=== PATIENT | female | born 1960 | race Caucasian/White ===

== ENCOUNTER 2020-12-12 09:45 | Inpatient (IN) | payer MEDICARE, OTHER ==
[2020-12-12] MEDS ORDERED: NALOXONE 0.4 MG/ML 1 ML VIAL IVP STA (09:50)
[2020-12-12] MEDS ORDERED: SODIUM CHLORIDE 0.9% 1,000 ML IV STA (09:50)
[2020-12-12] MEDS ORDERED: HYDROCORTISONE SUCCINATE 100 MG/2 ML VIAL IV STA (09:52)
[2020-12-12 09:56] LABS: Glucose,Whole Blood 101 mg/dL (75-99)
--- NOTE | 2020-12-12 10:07 | ED ---
Altered Mental Status HPI - General Chief Complaint: Altered Mental Status Stated Complaint: altered mental status Time Seen by Provider: 12/12/20 09:45 Source: patient, RN notes reviewed Mode of arrival: EMS Limitations: no limitations - History of Present Illness Initial Comments: This is an approximately late [id number] female with a history of MS who is brought in by EMS with reports of altered mental status when she woke up this morning. Patient apparently lives with a boyfriend who told paramedics that she seemed okay when she went to bed last night it's unknown what time she went to bed but woke up this morning confused with repeated questioning. She has had recent multiple falls it is reported that she saw her neurologist yesterday and his bleeding she is having an MS exacerbation. No focal weakness was noted. No known drug or alcohol ingestion. No fevers chills sweats no nausea vomiting or other symptoms reported at this time. Patient herself is a poor historian she answers yes and no questions she does not seem to know her last name or her birthdate at this time. MD Complaint: altered mental status, confusion - Related Data Home Medications Medication Instructions Recorded Confirmed Aspirin EC [Ecotrin Low Dose] 81 mg PO DAILY 12/12/20 12/12/20 Atorvastatin [Lipitor] 40 mg PO DAILY 12/12/20 12/12/20 Baclofen [Lioresal] 20 mg PO TID 12/12/20 12/12/20 Cholecalciferol [Vitamin D3 (25 50 mcg PO DAILY 12/12/20 12/12/20 Mcg = 1000 Iu)] DULoxetine HCL [Cymbalta] 30 mg PO BID 12/12/20 12/12/20 Dalfampridine [Dalfampridine ER] 10 mg PO Q12H 12/12/20 12/12/20 Ferrous Sulfate [Feosol] 325 mg PO DAILY 12/12/20 12/12/20 Fluticasone/Vilanterol [Breo 1 puff INHALATION RT-BID 12/12/20 12/12/20 Ellipta 100-25 Mcg Inhaler] Gabapentin 600 mg PO TID 12/12/20 12/12/20 HYDROcodone/APAP 10-325MG [[place] 1 tab PO BID 12/12/20 12/12/20 10-325] Metoprolol Tartrate [Lopressor] 25 mg PO BID 12/12/20 12/12/20 Omeprazole 20 mg PO DAILY 12/12/20 12/12/20 QUEtiapine FUMARATE [SEROquel] 25 mg PO HS 12/12/20 12/12/20 Teriflunomide [Aubagio] 14 mg PO DAILY 12/12/20 12/12/20 Ticagrelor [Brilinta] 90 mg PO BID 12/12/20 12/12/20 Allergies Allergy/AdvReac Type Severity Reaction Status Date / Time latex Allergy Unknown Verified 12/12/20 11:22 Review of Systems ROS Statement: Those systems with pertinent positive or pertinent negative responses have been documented in the HPI. ROS Other: All systems not noted in ROS Statement are negative. Limitations: ROS unobtainable due to patients medical condition Past Medical History Past Medical History: Unable to Obtain Past Surgical History: Unable to Obtain General Exam - General Exam Comments Initial Comments: This is a well-developed asthenic appearing female who is awake and alert though confused Limitations: no limitations General appearance: alert, anxious Head exam: Present: normocephalic, other (Bruising seen in the face for head and especially the right lower chin no step-off or crepitation) Eye exam: Present: normal appearance, PERRL, EOMI. Absent: scleral icterus, conjunctival injection, periorbital swelling ENT exam: Present: mucous membranes dry Neck exam: Present: normal inspection, full ROM (No stridor JVD or bruits), other. Absent: tenderness, meningismus, lymphadenopathy Respiratory exam: Present: normal lung sounds bilaterally. Absent: respiratory distress, wheezes, rales, rhonchi, stridor Cardiovascular Exam: Present: regular rate, normal rhythm, normal heart sounds. Absent: systolic murmur, diastolic murmur, rubs, gallop, clicks GI/Abdominal exam: Present: soft, normal bowel sounds. Absent: distended, tenderness, guarding, rebound, rigid Rectal exam: Present: deferred Extremities exam: Present: full ROM, normal capillary refill, other ((Seen to the lower extremities in various stages of apparent age). Absent: tenderness, pedal edema, joint swelling, calf tenderness Back exam: Present: normal inspection Neurological exam: Present: alert, altered, CN II-XII intact. Absent: motor sensory deficit Psychiatric exam: Present: anxious Skin exam: Present: warm, dry, intact. Absent: rash Course Vital Signs 12/12/20 12/12/20 12/12/20 09:56 10:08 11:22 Temperature 99.5 F Pulse Rate 80 84 Respiratory 18 18 18 Rate Blood Pressure 123/93 142/96 O2 Sat by Pulse 98 98 Oximetry 12/12/20 13:41 Temperature Pulse Rate 88 Respiratory 16 Rate Blood Pressure 129/99 O2 Sat by Pulse 98 Oximetry - Reevaluation(s) Reevaluation #1: 12/12/20 14:53 Reevaluation patient reveals some improvement in her mentation however she still is very confused. No change after the medications were given thus far. Medical Decision Making - Lab Data Result diagrams: 12/12/20 10:03 12/12/20 10:03 Lab Results 12/12/20 12/12/20 12/12/20 Range/Units 09:52 10:03 10:03 WBC 10.7 H (3.8-10.6) k/uL RBC 4.23 (3.80-5.40) m/uL Hgb 13.6 (11.4-16.0) gm/dL Hct 40.6 (34.0-46.0) % MCV 95.9 (80.0-100.0) fL MCH 32.2 (25.0-35.0) pg MCHC 33.5 (31.0-37.0) g/dL RDW 13.9 (11.5-15.5) % Plt Count 212 (150-450) k/uL MPV 8.1 Neutrophils % 72 % Lymphocytes % 17 % Monocytes % 8 % Eosinophils % 1 % Basophils % 0 % Neutrophils # 7.7 (1.3-7.7) k/uL Lymphocytes # 1.8 (1.0-4.8) k/uL Monocytes # 0.8 (0-1.0) k/uL Eosinophils # 0.1 (0-0.7) k/uL Basophils # 0.0 (0-0.2) k/uL PT 10.2 (9.0-12.0) sec INR 0.9 (<1.2) APTT 21.6 L (22.0-30.0) sec Sodium (137-145) mmol/L Potassium (3.5-5.1) mmol/L Chloride (98-107) mmol/L Carbon Dioxide (22-30) mmol/L Anion Gap mmol/L BUN (7-17) mg/dL Creatinine (0.52-1.04) mg/dL Est GFR (CKD-EPI)AfAm (>60 ml/min/1.73 sqM) Est GFR (CKD-EPI)NonAf (>60 ml/min/1.73 sqM) Glucose (74-99) mg/dL POC Glucose (mg/dL) 101 H (75-99) mg/dL POC Glu Certified Massage Therapist ID Leticia Zarate Lactic Ac Sepsis Rflx Plasma Lactic Acid Jeremías (0.7-2.0) mmol/L Calcium (8.4-10.2) mg/dL Magnesium (1.6-2.3) mg/dL Total Bilirubin (0.2-1.3) mg/dL AST (14-36) U/L ALT (4-34) U/L Alkaline Phosphatase (38-126) U/L Ammonia (<30) umol/L Creatine Kinase (30-135) U/L Troponin I (0.000-0.034) ng/mL Total Protein (6.3-8.2) g/dL Albumin (3.5-5.0) g/dL Urine Color Urine Appearance (Clear) Urine pH (5.0-8.0) Ur Specific [place] (1.001-1.035) Urine Protein (Negative) Urine Glucose (UA) (Negative) Urine Ketones (Negative) Urine Blood (Negative) Urine Nitrite (Negative) Urine Bilirubin (Negative) Urine Urobilinogen (<2.0) mg/dL Ur Leukocyte Esterase (Negative) Urine RBC (0-5) /hpf Urine WBC (0-5) /hpf Ur Squamous Epith Cells (0-4) /hpf Amorphous Sediment (None) /hpf Urine Bacteria (None) /hpf Hyaline Casts (0-2) /lpf Urine Mucus (None) /hpf Urine Opiates Screen (NotDetected) Ur Oxycodone Screen (NotDetected) Urine Methadone Screen (NotDetected) Ur Propoxyphene Screen (NotDetected) Ur Barbiturates Screen (NotDetected) U Tricyclic Antidepress (NotDetected) Ur Phencyclidine Scrn (NotDetected) Ur Amphetamines Screen (NotDetected) U Methamphetamines Scrn (NotDetected) U Benzodiazepines Scrn (NotDetected) Urine Cocaine Screen (NotDetected) U Marijuana (THC) Screen (NotDetected) Serum Alcohol mg/dL Coronavirus (PCR) (Not Detectd) 12/12/20 12/12/20 12/12/20 Range/Units 10:03 10:03 10:03 WBC (3.8-10.6) k/uL RBC (3.80-5.40) m/uL Hgb (11.4-16.0) gm/dL Hct (34.0-46.0) % MCV (80.0-100.0) fL MCH (25.0-35.0) pg MCHC (31.0-37.0) g/dL RDW (11.5-15.5) % Plt Count (150-450) k/uL MPV Neutrophils % % Lymphocytes % % Monocytes % % Eosinophils % % Basophils % % Neutrophils # (1.3-7.7) k/uL Lymphocytes # (1.0-4.8) k/uL Monocytes # (0-1.0) k/uL Eosinophils # (0-0.7) k/uL Basophils # (0-0.2) k/uL PT (9.0-12.0) sec INR (<1.2) APTT (22.0-30.0) sec Sodium 142 (137-145) mmol/L Potassium 4.9 (3.5-5.1) mmol/L Chloride 109 H (98-107) mmol/L Carbon Dioxide 19 L (22-30) mmol/L Anion Gap 14 mmol/L BUN 52 H (7-17) mg/dL Creatinine 2.86 H (0.52-1.04) mg/dL Est GFR (CKD-EPI)AfAm 13 (>60 ml/min/1.73 sqM) Est GFR (CKD-EPI)NonAf 11 (>60 ml/min/1.73 sqM) Glucose 107 H (74-99) mg/dL POC Glucose (mg/dL) (75-99) mg/dL POC Glu Certified Massage Therapist ID Lactic Ac Sepsis Rflx Plasma Lactic Acid Jeremías 3.6 H* (0.7-2.0) mmol/L Calcium 10.2 (8.4-10.2) mg/dL Magnesium 2.2 (1.6-2.3) mg/dL Total Bilirubin 1.0 (0.2-1.3) mg/dL AST 71 H (14-36) U/L ALT 30 (4-34) U/L Alkaline Phosphatase 128 H (38-126) U/L Ammonia <9 (<30) umol/L Creatine Kinase 750 H (30-135) U/L Troponin I 0.027 (0.000-0.034) ng/mL Total Protein 7.6 (6.3-8.2) g/dL Albumin 4.5 (3.5-5.0) g/dL Urine Color Urine Appearance (Clear) Urine pH (5.0-8.0) Ur Specific [place] (1.001-1.035) Urine Protein (Negative) Urine Glucose (UA) (Negative) Urine Ketones (Negative) Urine Blood (Negative) Urine Nitrite (Negative) Urine Bilirubin (Negative) Urine Urobilinogen (<2.0) mg/dL Ur Leukocyte Esterase (Negative) Urine RBC (0-5) /hpf Urine WBC (0-5) /hpf Ur Squamous Epith Cells (0-4) /hpf Amorphous Sediment (None) /hpf Urine Bacteria (None) /hpf Hyaline Casts (0-2) /lpf Urine Mucus (None) /hpf Urine Opiates Screen (NotDetected) Ur Oxycodone Screen (NotDetected) Urine Methadone Screen (NotDetected) Ur Propoxyphene Screen (NotDetected) Ur Barbiturates Screen (NotDetected) U Tricyclic Antidepress (NotDetected) Ur Phencyclidine Scrn (NotDetected) Ur Amphetamines Screen (NotDetected) U Methamphetamines Scrn (NotDetected) U Benzodiazepines Scrn (NotDetected) Urine Cocaine Screen (NotDetected) U Marijuana (THC) Screen (NotDetected) Serum Alcohol <10 mg/dL Coronavirus (PCR) (Not Detectd) 12/12/20 12/12/20 12/12/20 Range/Units 10:03 11:00 11:22 WBC (3.8-10.6) k/uL RBC (3.80-5.40) m/uL Hgb (11.4-16.0) gm/dL Hct (34.0-46.0) % MCV (80.0-100.0) fL MCH (25.0-35.0) pg MCHC (31.0-37.0) g/dL RDW (11.5-15.5) % Plt Count (150-450) k/uL MPV Neutrophils % % Lymphocytes % % Monocytes % % Eosinophils % % Basophils % % Neutrophils # (1.3-7.7) k/uL Lymphocytes # (1.0-4.8) k/uL Monocytes # (0-1.0) k/uL Eosinophils # (0-0.7) k/uL Basophils # (0-0.2) k/uL PT (9.0-12.0) sec INR (<1.2) APTT (22.0-30.0) sec Sodium (137-145) mmol/L Potassium (3.5-5.1) mmol/L Chloride (98-107) mmol/L Carbon Dioxide (22-30) mmol/L Anion Gap mmol/L BUN (7-17) mg/dL Creatinine (0.52-1.04) mg/dL Est GFR (CKD-EPI)AfAm (>60 ml/min/1.73 sqM) Est GFR (CKD-EPI)NonAf (>60 ml/min/1.73 sqM) Glucose (74-99) mg/dL POC Glucose (mg/dL) (75-99) mg/dL POC Glu Certified Massage Therapist ID Lactic Ac Sepsis Rflx Y Plasma Lactic Acid Jeremías (0.7-2.0) mmol/L Calcium (8.4-10.2) mg/dL Magnesium (1.6-2.3) mg/dL Total Bilirubin (0.2-1.3) mg/dL AST (14-36) U/L ALT (4-34) U/L Alkaline Phosphatase (38-126) U/L Ammonia (<30) umol/L Creatine Kinase (30-135) U/L Troponin I (0.000-0.034) ng/mL Total Protein (6.3-8.2) g/dL Albumin (3.5-5.0) g/dL Urine Color Yellow Urine Appearance Cloudy H (Clear) Urine pH 6.0 (5.0-8.0) Ur Specific [place] 1.024 (1.001-1.035) Urine Protein 1+ H (Negative) Urine Glucose (UA) Negative (Negative) Urine Ketones 1+ H (Negative) Urine Blood Small H (Negative) Urine Nitrite Negative (Negative) Urine Bilirubin Negative (Negative) Urine Urobilinogen 3.0 (<2.0) mg/dL Ur Leukocyte Esterase Trace H (Negative) Urine RBC <1 (0-5) /hpf Urine WBC 3 (0-5) /hpf Ur Squamous Epith Cells 1 (0-4) /hpf Amorphous Sediment Rare H (None) /hpf Urine Bacteria Rare H (None) /hpf Hyaline Casts 2 (0-2) /lpf Urine Mucus Rare H (None) /hpf Urine Opiates Screen Detected H (NotDetected) Ur Oxycodone Screen Not Detected (NotDetected) Urine Methadone Screen Not Detected (NotDetected) Ur Propoxyphene Screen Not Detected (NotDetected) Ur Barbiturates Screen Not Detected (NotDetected) U Tricyclic Antidepress Not Detected (NotDetected) Ur Phencyclidine Scrn Not Detected (NotDetected) Ur Amphetamines Screen Not Detected (NotDetected) U Methamphetamines Scrn Not Detected (NotDetected) U Benzodiazepines Scrn Not Detected (NotDetected) Urine Cocaine Screen Not Detected (NotDetected) U Marijuana (THC) Screen Detected H (NotDetected) Serum Alcohol mg/dL Coronavirus (PCR) Not Detected (Not Detectd) 12/12/20 Range/Units 14:02 WBC (3.8-10.6) k/uL RBC (3.80-5.40) m/uL Hgb (11.4-16.0) gm/dL Hct (34.0-46.0) % MCV (80.0-100.0) fL MCH (25.0-35.0) pg MCHC (31.0-37.0) g/dL RDW (11.5-15.5) % Plt Count (150-450) k/uL MPV Neutrophils % % Lymphocytes % % Monocytes % % Eosinophils % % Basophils % % Neutrophils # (1.3-7.7) k/uL Lymphocytes # (1.0-4.8) k/uL Monocytes # (0-1.0) k/uL Eosinophils # (0-0.7) k/uL Basophils # (0-0.2) k/uL PT (9.0-12.0) sec INR (<1.2) APTT (22.0-30.0) sec Sodium (137-145) mmol/L Potassium (3.5-5.1) mmol/L Chloride (98-107) mmol/L Carbon Dioxide (22-30) mmol/L Anion Gap mmol/L BUN (7-17) mg/dL Creatinine (0.52-1.04) mg/dL Est GFR (CKD-EPI)AfAm (>60 ml/min/1.73 sqM) Est GFR (CKD-EPI)NonAf (>60 ml/min/1.73 sqM) Glucose (74-99) mg/dL POC Glucose (mg/dL) (75-99) mg/dL POC Glu Certified Massage Therapist ID Lactic Ac Sepsis Rflx Plasma Lactic Acid Jeremías 0.8 (0.7-2.0) mmol/L Calcium (8.4-10.2) mg/dL Magnesium (1.6-2.3) mg/dL Total Bilirubin (0.2-1.3) mg/dL AST (14-36) U/L ALT (4-34) U/L Alkaline Phosphatase (38-126) U/L Ammonia (<30) umol/L Creatine Kinase (30-135) U/L Troponin I (0.000-0.034) ng/mL Total Protein (6.3-8.2) g/dL Albumin (3.5-5.0) g/dL Urine Color Urine Appearance (Clear) Urine pH (5.0-8.0) Ur Specific [place] (1.001-1.035) Urine Protein (Negative) Urine Glucose (UA) (Negative) Urine Ketones (Negative) Urine Blood (Negative) Urine Nitrite (Negative) Urine Bilirubin (Negative) Urine Urobilinogen (<2.0) mg/dL Ur Leukocyte Esterase (Negative) Urine RBC (0-5) /hpf Urine WBC (0-5) /hpf Ur Squamous Epith Cells (0-4) /hpf Amorphous Sediment (None) /hpf Urine Bacteria (None) /hpf Hyaline Casts (0-2) /lpf Urine Mucus (None) /hpf Urine Opiates Screen (NotDetected) Ur Oxycodone Screen (NotDetected) Urine Methadone Screen (NotDetected) Ur Propoxyphene Screen (NotDetected) Ur Barbiturates Screen (NotDetected) U Tricyclic Antidepress (NotDetected) Ur Phencyclidine Scrn (NotDetected) Ur Amphetamines Screen (NotDetected) U Methamphetamines Scrn (NotDetected) U Benzodiazepines Scrn (NotDetected) Urine Cocaine Screen (NotDetected) U Marijuana (THC) Screen (NotDetected) Serum Alcohol mg/dL Coronavirus (PCR) (Not Detectd) - EKG Data -: EKG Interpreted by Me EKG shows normal: sinus rhythm (Was sinus rhythm of 70. Interval 128 QRS duration 80 QT since QTC 438/[address]-T wave changes) - Radiology Data Radiology results: report reviewed (Imaging reviewed no acute findings seen.), image reviewed Critical Care Time Critical Care Time: Yes Total Critical Care Time: 42 Critical Care Time: Critical care time includes initial presentation with history physical labs x- rays discussed with paramedics upon arrival for reevaluation patient responsive therapy review charting review of labs and x-rays. Discussed with the main physician admission orders and documentation of the above Disposition Clinical Impression: Acute confusional state, Multiple sclerosis exacerbation, Rhabdomyolysis, Dehydration Disposition: ADMITTED IP TO THIS [facility] Condition: Fair Referrals: None,Stated [REFERRING] - 1-2 days
[2020-12-12 10:13] LABS: Basophils % (A) 0 %; Eosinophils # (A) 0.1 k/uL (0-0.7); Eosinophils % (A) 1 %; HCT 40.6 % (34.0-46.0); HGB 13.6 gm/dL (11.4-16.0); Lymphocytes # (A) 1.8 k/uL (1.0-4.8); Lymphocytes % (A) 17 %; MCH 32.2 pg (25.0-35.0); MCHC 33.5 g/dL (31.0-37.0); MCV 95.9 fL (80.0-100.0); Mean Platelet Volume 8.1; Monocytes # (A) 0.8 k/uL (0-1.0); Monocytes % (A) 8 %; Neutrophils # (A) 7.7 k/uL (1.3-7.7); Neutrophils % (A) 72 %; Platelet Count 212 k/uL (150-450); RBC 4.23 m/uL (3.80-5.40); RDW 13.9 % (11.5-15.5); WBC 10.7 k/uL (3.8-10.6)
[2020-12-12 10:24] LABS: ALT 30 U/L (4-34); African American GFR (CKD) 13 (>60 ml/min/1.73 sqM); Albumin 4.5 g/dL (3.5-5.0); Alcohol <10 mg/dL; Anion Gap 14 mmol/L; Blood Urea Nitrogen 52 mg/dL (7-17); Calcium 10.2 mg/dL (8.4-10.2); Carbon Dioxide 19 mmol/L (22-30); Chloride 109 mmol/L (98-107); Creatine Kinase 750 U/L (30-135); Glucose 107 mg/dL (74-99); Non-African American GFR(CKD) 11 (>60 ml/min/1.73 sqM); Sodium 142 mmol/L (137-145); Total Protein 7.6 g/dL (6.3-8.2)
[2020-12-12 10:25] LABS: AST 71 U/L (14-36); Alkaline Phosphatase 128 U/L (38-126); Magnesium 2.2 mg/dL (1.6-2.3); Potassium 4.9 mmol/L (3.5-5.1)
[2020-12-12 10:32] LABS: INR 0.9 (<1.2); Prothrombin Time 10.2 sec (9.0-12.0)
[2020-12-12 10:34] LABS: Partial Thromboplastin Time 21.6 sec (22.0-30.0)
--- NOTE | 2020-12-12 10:51 | XR ---
EXAMINATION TYPE: XR chest 1V portable DATE OF EXAM: 12/12/2020 COMPARISON: None INDICATION: Altered mental status TECHNIQUE: Single frontal view of the chest is obtained. FINDINGS: The heart size is normal. The pulmonary vasculature is normal. The lungs are clear. No acute osseous abnormality is evident. No pneumothorax is evident. IMPRESSION: 1. No acute pulmonary process.
--- NOTE | 2020-12-12 10:54 | CT ---
EXAMINATION TYPE: CT brain angie ellington DATE OF EXAM: 12/12/2020 COMPARISON: HISTORY: altered mental status, bruising to chin, trauma? CT DLP: 1321.3 mGycm, Automated exposure control for dose reduction was used. CONTRAST: Patient injected with mL of . CT of the brain is performed utilizing 3 mm thick sections through the posterior fossa and 3 mm thick sections through the remaining calvarium. Study is performed within 24 hours of arrival to the hospital. No abnormal hyperdensity is present to suggest an acute intracranial hemorrhage. No mass lesion is evident. No acute infarcts are evident. There appears to be some mild white matter changes in the right front al lobe. This is nonspecific but can be related to microvascular ischemic change. Typical subcortical infarct is not identified. Ventricles and sulci are mildly prominent. Paranasal sinuses and mastoid air cells within the [id number] are clear. IMPRESSIONS: 1. Suggestion of some atrophy and chronic-appearing white matter changes right frontal lobe. 2. No acute intracranial process identified. CT cervical spine. COMPARISON: None CT of the cervical spine is performed in the axial plane at 2 mm thick sections. Reconstructed image s in the coronal, and sagittal plane are reviewed on the computer. No acute fractures are evident. Vertebral body alignment is straightened which can be related to patient positioning or muscle spasm. Disc heights are preserved. Vertebral body heights are preserved. No spinal canal stenosis is evident. No neural foraminal stenosis is evident. IMPRESSIONS: 1. No acute osseous abnormality cervical spine.
[2020-12-12 11:00] LABS: Lactic Acid, Venous 3.6 mmol/L (0.7-2.0)
[2020-12-12 11:38] LABS: Amorphous Sediment,Urine Rare /hpf; Appearance,Urine Cloudy (Clear); Bacteria,Urine Rare /hpf; Bilirubin,Urine Negative (Negative); Blood,Urine Small (Negative); Color,Urine Yellow; Glucose,Urine (UA) Negative (Negative); Hyaline Casts,Urine 2 /lpf (0-2); Ketones,Urine 1+ (Negative); Leukocyte Esterase,Urine Trace (Negative); Mucus,Urine Rare /hpf; Nitrite,Urine Negative (Negative); Protein,Urine 1+ (Negative); RBC,Urine <1 /hpf (0-5); Specific Gravity,Urine 1.024 (1.001-1.035); Squamous Epithelial Cell,Urine 1 /hpf (0-4); WBC,Urine 3 /hpf (0-5)
[2020-12-12 11:51] LABS: Amphetamine Screen,Urine Not Detected (NotDetected); Barbiturate Screen,Urine Not Detected (NotDetected); Benzodiazepines Screen,Urine Not Detected (NotDetected); Cocaine Screen,Urine Not Detected (NotDetected); Methadone Screen, Urine Not Detected (NotDetected); Opiate Screen,Urine Detected (NotDetected); Oxycodone Screen, Urine Not Detected (NotDetected); Phencyclidine Screen,Urine Not Detected (NotDetected); Tricyclic Antidepressant,Urine Not Detected (NotDetected); Urn Cannabinoid Scrn Detected (NotDetected)
[2020-12-12] MEDS ORDERED: cefTRIAXone IN SWFI 1,000 MG/10 ML SYRINGE IVP STA (12:12)
[2020-12-12] MEDS ORDERED: KETOROLAC 15 MG/ML 1 ML VIAL IVP STA (14:16)
[2020-12-12] MEDS ORDERED: NALOXONE 0.4 MG/ML 1 ML VIAL IV PRN (14:55)
--- NOTE | 2020-12-12 14:55 | ED ---
Medical Decision Making - Lab Data Result diagrams: 12/12/20 10:03 12/12/20 10:03 Lab Results 12/12/20 12/12/20 12/12/20 Range/Units 09:52 10:03 10:03 WBC 10.7 H (3.8-10.6) k/uL RBC 4.23 (3.80-5.40) m/uL Hgb 13.6 (11.4-16.0) gm/dL Hct 40.6 (34.0-46.0) % MCV 95.9 (80.0-100.0) fL MCH 32.2 (25.0-35.0) pg MCHC 33.5 (31.0-37.0) g/dL RDW 13.9 (11.5-15.5) % Plt Count 212 (150-450) k/uL MPV 8.1 Neutrophils % 72 % Lymphocytes % 17 % Monocytes % 8 % Eosinophils % 1 % Basophils % 0 % Neutrophils # 7.7 (1.3-7.7) k/uL Lymphocytes # 1.8 (1.0-4.8) k/uL Monocytes # 0.8 (0-1.0) k/uL Eosinophils # 0.1 (0-0.7) k/uL Basophils # 0.0 (0-0.2) k/uL PT 10.2 (9.0-12.0) sec INR 0.9 (<1.2) APTT 21.6 L (22.0-30.0) sec Sodium (137-145) mmol/L Potassium (3.5-5.1) mmol/L Chloride (98-107) mmol/L Carbon Dioxide (22-30) mmol/L Anion Gap mmol/L BUN (7-17) mg/dL Creatinine (0.52-1.04) mg/dL Est GFR (CKD-EPI)AfAm (>60 ml/min/1.73 sqM) Est GFR (CKD-EPI)NonAf (>60 ml/min/1.73 sqM) Glucose (74-99) mg/dL POC Glucose (mg/dL) 101 H (75-99) mg/dL POC Glu Senior Policy Associate ID Leticia Zarate Lactic Ac Sepsis Rflx Plasma Lactic Acid Jeremías (0.7-2.0) mmol/L Calcium (8.4-10.2) mg/dL Magnesium (1.6-2.3) mg/dL Total Bilirubin (0.2-1.3) mg/dL AST (14-36) U/L ALT (4-34) U/L Alkaline Phosphatase (38-126) U/L Ammonia (<30) umol/L Creatine Kinase (30-135) U/L Troponin I (0.000-0.034) ng/mL Total Protein (6.3-8.2) g/dL Albumin (3.5-5.0) g/dL Urine Color Urine Appearance (Clear) Urine pH (5.0-8.0) Ur Specific [place] (1.001-1.035) Urine Protein (Negative) Urine Glucose (UA) (Negative) Urine Ketones (Negative) Urine Blood (Negative) Urine Nitrite (Negative) Urine Bilirubin (Negative) Urine Urobilinogen (<2.0) mg/dL Ur Leukocyte Esterase (Negative) Urine RBC (0-5) /hpf Urine WBC (0-5) /hpf Ur Squamous Epith Cells (0-4) /hpf Amorphous Sediment (None) /hpf Urine Bacteria (None) /hpf Hyaline Casts (0-2) /lpf Urine Mucus (None) /hpf Urine Opiates Screen (NotDetected) Ur Oxycodone Screen (NotDetected) Urine Methadone Screen (NotDetected) Ur Propoxyphene Screen (NotDetected) Ur Barbiturates Screen (NotDetected) U Tricyclic Antidepress (NotDetected) Ur Phencyclidine Scrn (NotDetected) Ur Amphetamines Screen (NotDetected) U Methamphetamines Scrn (NotDetected) U Benzodiazepines Scrn (NotDetected) Urine Cocaine Screen (NotDetected) U Marijuana (THC) Screen (NotDetected) Serum Alcohol mg/dL Coronavirus (PCR) (Not Detectd) 12/12/20 12/12/20 12/12/20 Range/Units 10:03 10:03 10:03 WBC (3.8-10.6) k/uL RBC (3.80-5.40) m/uL Hgb (11.4-16.0) gm/dL Hct (34.0-46.0) % MCV (80.0-100.0) fL MCH (25.0-35.0) pg MCHC (31.0-37.0) g/dL RDW (11.5-15.5) % Plt Count (150-450) k/uL MPV Neutrophils % % Lymphocytes % % Monocytes % % Eosinophils % % Basophils % % Neutrophils # (1.3-7.7) k/uL Lymphocytes # (1.0-4.8) k/uL Monocytes # (0-1.0) k/uL Eosinophils # (0-0.7) k/uL Basophils # (0-0.2) k/uL PT (9.0-12.0) sec INR (<1.2) APTT (22.0-30.0) sec Sodium 142 (137-145) mmol/L Potassium 4.9 (3.5-5.1) mmol/L Chloride 109 H (98-107) mmol/L Carbon Dioxide 19 L (22-30) mmol/L Anion Gap 14 mmol/L BUN 52 H (7-17) mg/dL Creatinine 2.86 H (0.52-1.04) mg/dL Est GFR (CKD-EPI)AfAm 13 (>60 ml/min/1.73 sqM) Est GFR (CKD-EPI)NonAf 11 (>60 ml/min/1.73 sqM) Glucose 107 H (74-99) mg/dL POC Glucose (mg/dL) (75-99) mg/dL POC Glu Senior Policy Associate ID Lactic Ac Sepsis Rflx Plasma Lactic Acid Jeremías 3.6 H* (0.7-2.0) mmol/L Calcium 10.2 (8.4-10.2) mg/dL Magnesium 2.2 (1.6-2.3) mg/dL Total Bilirubin 1.0 (0.2-1.3) mg/dL AST 71 H (14-36) U/L ALT 30 (4-34) U/L Alkaline Phosphatase 128 H (38-126) U/L Ammonia <9 (<30) umol/L Creatine Kinase 750 H (30-135) U/L Troponin I 0.027 (0.000-0.034) ng/mL Total Protein 7.6 (6.3-8.2) g/dL Albumin 4.5 (3.5-5.0) g/dL Urine Color Urine Appearance (Clear) Urine pH (5.0-8.0) Ur Specific [place] (1.001-1.035) Urine Protein (Negative) Urine Glucose (UA) (Negative) Urine Ketones (Negative) Urine Blood (Negative) Urine Nitrite (Negative) Urine Bilirubin (Negative) Urine Urobilinogen (<2.0) mg/dL Ur Leukocyte Esterase (Negative) Urine RBC (0-5) /hpf Urine WBC (0-5) /hpf Ur Squamous Epith Cells (0-4) /hpf Amorphous Sediment (None) /hpf Urine Bacteria (None) /hpf Hyaline Casts (0-2) /lpf Urine Mucus (None) /hpf Urine Opiates Screen (NotDetected) Ur Oxycodone Screen (NotDetected) Urine Methadone Screen (NotDetected) Ur Propoxyphene Screen (NotDetected) Ur Barbiturates Screen (NotDetected) U Tricyclic Antidepress (NotDetected) Ur Phencyclidine Scrn (NotDetected) Ur Amphetamines Screen (NotDetected) U Methamphetamines Scrn (NotDetected) U Benzodiazepines Scrn (NotDetected) Urine Cocaine Screen (NotDetected) U Marijuana (THC) Screen (NotDetected) Serum Alcohol <10 mg/dL Coronavirus (PCR) (Not Detectd) 12/12/20 12/12/20 12/12/20 Range/Units 10:03 11:00 11:22 WBC (3.8-10.6) k/uL RBC (3.80-5.40) m/uL Hgb (11.4-16.0) gm/dL Hct (34.0-46.0) % MCV (80.0-100.0) fL MCH (25.0-35.0) pg MCHC (31.0-37.0) g/dL RDW (11.5-15.5) % Plt Count (150-450) k/uL MPV Neutrophils % % Lymphocytes % % Monocytes % % Eosinophils % % Basophils % % Neutrophils # (1.3-7.7) k/uL Lymphocytes # (1.0-4.8) k/uL Monocytes # (0-1.0) k/uL Eosinophils # (0-0.7) k/uL Basophils # (0-0.2) k/uL PT (9.0-12.0) sec INR (<1.2) APTT (22.0-30.0) sec Sodium (137-145) mmol/L Potassium (3.5-5.1) mmol/L Chloride (98-107) mmol/L Carbon Dioxide (22-30) mmol/L Anion Gap mmol/L BUN (7-17) mg/dL Creatinine (0.52-1.04) mg/dL Est GFR (CKD-EPI)AfAm (>60 ml/min/1.73 sqM) Est GFR (CKD-EPI)NonAf (>60 ml/min/1.73 sqM) Glucose (74-99) mg/dL POC Glucose (mg/dL) (75-99) mg/dL POC Glu Senior Policy Associate ID Lactic Ac Sepsis Rflx Y Plasma Lactic Acid Jeremías (0.7-2.0) mmol/L Calcium (8.4-10.2) mg/dL Magnesium (1.6-2.3) mg/dL Total Bilirubin (0.2-1.3) mg/dL AST (14-36) U/L ALT (4-34) U/L Alkaline Phosphatase (38-126) U/L Ammonia (<30) umol/L Creatine Kinase (30-135) U/L Troponin I (0.000-0.034) ng/mL Total Protein (6.3-8.2) g/dL Albumin (3.5-5.0) g/dL Urine Color Yellow Urine Appearance Cloudy H (Clear) Urine pH 6.0 (5.0-8.0) Ur Specific [place] 1.024 (1.001-1.035) Urine Protein 1+ H (Negative) Urine Glucose (UA) Negative (Negative) Urine Ketones 1+ H (Negative) Urine Blood Small H (Negative) Urine Nitrite Negative (Negative) Urine Bilirubin Negative (Negative) Urine Urobilinogen 3.0 (<2.0) mg/dL Ur Leukocyte Esterase Trace H (Negative) Urine RBC <1 (0-5) /hpf Urine WBC 3 (0-5) /hpf Ur Squamous Epith Cells 1 (0-4) /hpf Amorphous Sediment Rare H (None) /hpf Urine Bacteria Rare H (None) /hpf Hyaline Casts 2 (0-2) /lpf Urine Mucus Rare H (None) /hpf Urine Opiates Screen Detected H (NotDetected) Ur Oxycodone Screen Not Detected (NotDetected) Urine Methadone Screen Not Detected (NotDetected) Ur Propoxyphene Screen Not Detected (NotDetected) Ur Barbiturates Screen Not Detected (NotDetected) U Tricyclic Antidepress Not Detected (NotDetected) Ur Phencyclidine Scrn Not Detected (NotDetected) Ur Amphetamines Screen Not Detected (NotDetected) U Methamphetamines Scrn Not Detected (NotDetected) U Benzodiazepines Scrn Not Detected (NotDetected) Urine Cocaine Screen Not Detected (NotDetected) U Marijuana (THC) Screen Detected H (NotDetected) Serum Alcohol mg/dL Coronavirus (PCR) Not Detected (Not Detectd) 12/12/20 Range/Units 14:02 WBC (3.8-10.6) k/uL RBC (3.80-5.40) m/uL Hgb (11.4-16.0) gm/dL Hct (34.0-46.0) % MCV (80.0-100.0) fL MCH (25.0-35.0) pg MCHC (31.0-37.0) g/dL RDW (11.5-15.5) % Plt Count (150-450) k/uL MPV Neutrophils % % Lymphocytes % % Monocytes % % Eosinophils % % Basophils % % Neutrophils # (1.3-7.7) k/uL Lymphocytes # (1.0-4.8) k/uL Monocytes # (0-1.0) k/uL Eosinophils # (0-0.7) k/uL Basophils # (0-0.2) k/uL PT (9.0-12.0) sec INR (<1.2) APTT (22.0-30.0) sec Sodium (137-145) mmol/L Potassium (3.5-5.1) mmol/L Chloride (98-107) mmol/L Carbon Dioxide (22-30) mmol/L Anion Gap mmol/L BUN (7-17) mg/dL Creatinine (0.52-1.04) mg/dL Est GFR (CKD-EPI)AfAm (>60 ml/min/1.73 sqM) Est GFR (CKD-EPI)NonAf (>60 ml/min/1.73 sqM) Glucose (74-99) mg/dL POC Glucose (mg/dL) (75-99) mg/dL POC Glu Senior Policy Associate ID Lactic Ac Sepsis Rflx Plasma Lactic Acid Jeremías 0.8 (0.7-2.0) mmol/L Calcium (8.4-10.2) mg/dL Magnesium (1.6-2.3) mg/dL Total Bilirubin (0.2-1.3) mg/dL AST (14-36) U/L ALT (4-34) U/L Alkaline Phosphatase (38-126) U/L Ammonia (<30) umol/L Creatine Kinase (30-135) U/L Troponin I (0.000-0.034) ng/mL Total Protein (6.3-8.2) g/dL Albumin (3.5-5.0) g/dL Urine Color Urine Appearance (Clear) Urine pH (5.0-8.0) Ur Specific [place] (1.001-1.035) Urine Protein (Negative) Urine Glucose (UA) (Negative) Urine Ketones (Negative) Urine Blood (Negative) Urine Nitrite (Negative) Urine Bilirubin (Negative) Urine Urobilinogen (<2.0) mg/dL Ur Leukocyte Esterase (Negative) Urine RBC (0-5) /hpf Urine WBC (0-5) /hpf Ur Squamous Epith Cells (0-4) /hpf Amorphous Sediment (None) /hpf Urine Bacteria (None) /hpf Hyaline Casts (0-2) /lpf Urine Mucus (None) /hpf Urine Opiates Screen (NotDetected) Ur Oxycodone Screen (NotDetected) Urine Methadone Screen (NotDetected) Ur Propoxyphene Screen (NotDetected) Ur Barbiturates Screen (NotDetected) U Tricyclic Antidepress (NotDetected) Ur Phencyclidine Scrn (NotDetected) Ur Amphetamines Screen (NotDetected) U Methamphetamines Scrn (NotDetected) U Benzodiazepines Scrn (NotDetected) Urine Cocaine Screen (NotDetected) U Marijuana (THC) Screen (NotDetected) Serum Alcohol mg/dL Coronavirus (PCR) (Not Detectd) Disposition Clinical Impression: Acute confusional state, Multiple sclerosis exacerbation, Rhabdomyolysis, Dehydration, Febrile illness, acute Disposition: ADMITTED IP TO THIS HOSP Condition: Fair Referrals: None,Stated [REFERRING] - 1-2 days
--- NOTE | 2020-12-12 15:02 | ED ---
Medical Decision Making - Medical Decision Making Elevated lactic acid likely secondary to viral depletion. - Lab Data Result diagrams: 12/12/20 10:03 12/12/20 10:03 Lab Results 12/12/20 12/12/20 12/12/20 Range/Units 09:52 10:03 10:03 WBC 10.7 H (3.8-10.6) k/uL RBC 4.23 (3.80-5.40) m/uL Hgb 13.6 (11.4-16.0) gm/dL Hct 40.6 (34.0-46.0) % MCV 95.9 (80.0-100.0) fL MCH 32.2 (25.0-35.0) pg MCHC 33.5 (31.0-37.0) g/dL RDW 13.9 (11.5-15.5) % Plt Count 212 (150-450) k/uL MPV 8.1 Neutrophils % 72 % Lymphocytes % 17 % Monocytes % 8 % Eosinophils % 1 % Basophils % 0 % Neutrophils # 7.7 (1.3-7.7) k/uL Lymphocytes # 1.8 (1.0-4.8) k/uL Monocytes # 0.8 (0-1.0) k/uL Eosinophils # 0.1 (0-0.7) k/uL Basophils # 0.0 (0-0.2) k/uL PT 10.2 (9.0-12.0) sec INR 0.9 (<1.2) APTT 21.6 L (22.0-30.0) sec Sodium (137-145) mmol/L Potassium (3.5-5.1) mmol/L Chloride (98-107) mmol/L Carbon Dioxide (22-30) mmol/L Anion Gap mmol/L BUN (7-17) mg/dL Creatinine (0.52-1.04) mg/dL Est GFR (CKD-EPI)AfAm (>60 ml/min/1.73 sqM) Est GFR (CKD-EPI)NonAf (>60 ml/min/1.73 sqM) Glucose (74-99) mg/dL POC Glucose (mg/dL) 101 H (75-99) mg/dL POC Glu [place] ID Leticia Zarate Lactic Ac Sepsis Rflx Plasma Lactic Acid Jeremías (0.7-2.0) mmol/L Calcium (8.4-10.2) mg/dL Magnesium (1.6-2.3) mg/dL Total Bilirubin (0.2-1.3) mg/dL AST (14-36) U/L ALT (4-34) U/L Alkaline Phosphatase (38-126) U/L Ammonia (<30) umol/L Creatine Kinase (30-135) U/L Troponin I (0.000-0.034) ng/mL Total Protein (6.3-8.2) g/dL Albumin (3.5-5.0) g/dL Urine Color Urine Appearance (Clear) Urine pH (5.0-8.0) Ur Specific [place] (1.001-1.035) Urine Protein (Negative) Urine Glucose (UA) (Negative) Urine Ketones (Negative) Urine Blood (Negative) Urine Nitrite (Negative) Urine Bilirubin (Negative) Urine Urobilinogen (<2.0) mg/dL Ur Leukocyte Esterase (Negative) Urine RBC (0-5) /hpf Urine WBC (0-5) /hpf Ur Squamous Epith Cells (0-4) /hpf Amorphous Sediment (None) /hpf Urine Bacteria (None) /hpf Hyaline Casts (0-2) /lpf Urine Mucus (None) /hpf Urine Opiates Screen (NotDetected) Ur Oxycodone Screen (NotDetected) Urine Methadone Screen (NotDetected) Ur Propoxyphene Screen (NotDetected) Ur Barbiturates Screen (NotDetected) U Tricyclic Antidepress (NotDetected) Ur Phencyclidine Scrn (NotDetected) Ur Amphetamines Screen (NotDetected) U Methamphetamines Scrn (NotDetected) U Benzodiazepines Scrn (NotDetected) Urine Cocaine Screen (NotDetected) U Marijuana (THC) Screen (NotDetected) Serum Alcohol mg/dL Coronavirus (PCR) (Not Detectd) 12/12/20 12/12/20 12/12/20 Range/Units 10:03 10:03 10:03 WBC (3.8-10.6) k/uL RBC (3.80-5.40) m/uL Hgb (11.4-16.0) gm/dL Hct (34.0-46.0) % MCV (80.0-100.0) fL MCH (25.0-35.0) pg MCHC (31.0-37.0) g/dL RDW (11.5-15.5) % Plt Count (150-450) k/uL MPV Neutrophils % % Lymphocytes % % Monocytes % % Eosinophils % % Basophils % % Neutrophils # (1.3-7.7) k/uL Lymphocytes # (1.0-4.8) k/uL Monocytes # (0-1.0) k/uL Eosinophils # (0-0.7) k/uL Basophils # (0-0.2) k/uL PT (9.0-12.0) sec INR (<1.2) APTT (22.0-30.0) sec Sodium 142 (137-145) mmol/L Potassium 4.9 (3.5-5.1) mmol/L Chloride 109 H (98-107) mmol/L Carbon Dioxide 19 L (22-30) mmol/L Anion Gap 14 mmol/L BUN 52 H (7-17) mg/dL Creatinine 2.86 H (0.52-1.04) mg/dL Est GFR (CKD-EPI)AfAm 13 (>60 ml/min/1.73 sqM) Est GFR (CKD-EPI)NonAf 11 (>60 ml/min/1.73 sqM) Glucose 107 H (74-99) mg/dL POC Glucose (mg/dL) (75-99) mg/dL POC Glu [place] ID Lactic Ac Sepsis Rflx Plasma Lactic Acid Jeremías 3.6 H* (0.7-2.0) mmol/L Calcium 10.2 (8.4-10.2) mg/dL Magnesium 2.2 (1.6-2.3) mg/dL Total Bilirubin 1.0 (0.2-1.3) mg/dL AST 71 H (14-36) U/L ALT 30 (4-34) U/L Alkaline Phosphatase 128 H (38-126) U/L Ammonia <9 (<30) umol/L Creatine Kinase 750 H (30-135) U/L Troponin I 0.027 (0.000-0.034) ng/mL Total Protein 7.6 (6.3-8.2) g/dL Albumin 4.5 (3.5-5.0) g/dL Urine Color Urine Appearance (Clear) Urine pH (5.0-8.0) Ur Specific [place] (1.001-1.035) Urine Protein (Negative) Urine Glucose (UA) (Negative) Urine Ketones (Negative) Urine Blood (Negative) Urine Nitrite (Negative) Urine Bilirubin (Negative) Urine Urobilinogen (<2.0) mg/dL Ur Leukocyte Esterase (Negative) Urine RBC (0-5) /hpf Urine WBC (0-5) /hpf Ur Squamous Epith Cells (0-4) /hpf Amorphous Sediment (None) /hpf Urine Bacteria (None) /hpf Hyaline Casts (0-2) /lpf Urine Mucus (None) /hpf Urine Opiates Screen (NotDetected) Ur Oxycodone Screen (NotDetected) Urine Methadone Screen (NotDetected) Ur Propoxyphene Screen (NotDetected) Ur Barbiturates Screen (NotDetected) U Tricyclic Antidepress (NotDetected) Ur Phencyclidine Scrn (NotDetected) Ur Amphetamines Screen (NotDetected) U Methamphetamines Scrn (NotDetected) U Benzodiazepines Scrn (NotDetected) Urine Cocaine Screen (NotDetected) U Marijuana (THC) Screen (NotDetected) Serum Alcohol <10 mg/dL Coronavirus (PCR) (Not Detectd) 12/12/20 12/12/20 12/12/20 Range/Units 10:03 11:00 11:22 WBC (3.8-10.6) k/uL RBC (3.80-5.40) m/uL Hgb (11.4-16.0) gm/dL Hct (34.0-46.0) % MCV (80.0-100.0) fL MCH (25.0-35.0) pg MCHC (31.0-37.0) g/dL RDW (11.5-15.5) % Plt Count (150-450) k/uL MPV Neutrophils % % Lymphocytes % % Monocytes % % Eosinophils % % Basophils % % Neutrophils # (1.3-7.7) k/uL Lymphocytes # (1.0-4.8) k/uL Monocytes # (0-1.0) k/uL Eosinophils # (0-0.7) k/uL Basophils # (0-0.2) k/uL PT (9.0-12.0) sec INR (<1.2) APTT (22.0-30.0) sec Sodium (137-145) mmol/L Potassium (3.5-5.1) mmol/L Chloride (98-107) mmol/L Carbon Dioxide (22-30) mmol/L Anion Gap mmol/L BUN (7-17) mg/dL Creatinine (0.52-1.04) mg/dL Est GFR (CKD-EPI)AfAm (>60 ml/min/1.73 sqM) Est GFR (CKD-EPI)NonAf (>60 ml/min/1.73 sqM) Glucose (74-99) mg/dL POC Glucose (mg/dL) (75-99) mg/dL POC Glu [place] ID Lactic Ac Sepsis Rflx Y Plasma Lactic Acid Jeremías (0.7-2.0) mmol/L Calcium (8.4-10.2) mg/dL Magnesium (1.6-2.3) mg/dL Total Bilirubin (0.2-1.3) mg/dL AST (14-36) U/L ALT (4-34) U/L Alkaline Phosphatase (38-126) U/L Ammonia (<30) umol/L Creatine Kinase (30-135) U/L Troponin I (0.000-0.034) ng/mL Total Protein (6.3-8.2) g/dL Albumin (3.5-5.0) g/dL Urine Color Yellow Urine Appearance Cloudy H (Clear) Urine pH 6.0 (5.0-8.0) Ur Specific [place] 1.024 (1.001-1.035) Urine Protein 1+ H (Negative) Urine Glucose (UA) Negative (Negative) Urine Ketones 1+ H (Negative) Urine Blood Small H (Negative) Urine Nitrite Negative (Negative) Urine Bilirubin Negative (Negative) Urine Urobilinogen 3.0 (<2.0) mg/dL Ur Leukocyte Esterase Trace H (Negative) Urine RBC <1 (0-5) /hpf Urine WBC 3 (0-5) /hpf Ur Squamous Epith Cells 1 (0-4) /hpf Amorphous Sediment Rare H (None) /hpf Urine Bacteria Rare H (None) /hpf Hyaline Casts 2 (0-2) /lpf Urine Mucus Rare H (None) /hpf Urine Opiates Screen Detected H (NotDetected) Ur Oxycodone Screen Not Detected (NotDetected) Urine Methadone Screen Not Detected (NotDetected) Ur Propoxyphene Screen Not Detected (NotDetected) Ur Barbiturates Screen Not Detected (NotDetected) U Tricyclic Antidepress Not Detected (NotDetected) Ur Phencyclidine Scrn Not Detected (NotDetected) Ur Amphetamines Screen Not Detected (NotDetected) U Methamphetamines Scrn Not Detected (NotDetected) U Benzodiazepines Scrn Not Detected (NotDetected) Urine Cocaine Screen Not Detected (NotDetected) U Marijuana (THC) Screen Detected H (NotDetected) Serum Alcohol mg/dL Coronavirus (PCR) Not Detected (Not Detectd) 12/12/20 Range/Units 14:02 WBC (3.8-10.6) k/uL RBC (3.80-5.40) m/uL Hgb (11.4-16.0) gm/dL Hct (34.0-46.0) % MCV (80.0-100.0) fL MCH (25.0-35.0) pg MCHC (31.0-37.0) g/dL RDW (11.5-15.5) % Plt Count (150-450) k/uL MPV Neutrophils % % Lymphocytes % % Monocytes % % Eosinophils % % Basophils % % Neutrophils # (1.3-7.7) k/uL Lymphocytes # (1.0-4.8) k/uL Monocytes # (0-1.0) k/uL Eosinophils # (0-0.7) k/uL Basophils # (0-0.2) k/uL PT (9.0-12.0) sec INR (<1.2) APTT (22.0-30.0) sec Sodium (137-145) mmol/L Potassium (3.5-5.1) mmol/L Chloride (98-107) mmol/L Carbon Dioxide (22-30) mmol/L Anion Gap mmol/L BUN (7-17) mg/dL Creatinine (0.52-1.04) mg/dL Est GFR (CKD-EPI)AfAm (>60 ml/min/1.73 sqM) Est GFR (CKD-EPI)NonAf (>60 ml/min/1.73 sqM) Glucose (74-99) mg/dL POC Glucose (mg/dL) (75-99) mg/dL POC Glu [place] ID Lactic Ac Sepsis Rflx Plasma Lactic Acid Jeremías 0.8 (0.7-2.0) mmol/L Calcium (8.4-10.2) mg/dL Magnesium (1.6-2.3) mg/dL Total Bilirubin (0.2-1.3) mg/dL AST (14-36) U/L ALT (4-34) U/L Alkaline Phosphatase (38-126) U/L Ammonia (<30) umol/L Creatine Kinase (30-135) U/L Troponin I (0.000-0.034) ng/mL Total Protein (6.3-8.2) g/dL Albumin (3.5-5.0) g/dL Urine Color Urine Appearance (Clear) Urine pH (5.0-8.0) Ur Specific [place] (1.001-1.035) Urine Protein (Negative) Urine Glucose (UA) (Negative) Urine Ketones (Negative) Urine Blood (Negative) Urine Nitrite (Negative) Urine Bilirubin (Negative) Urine Urobilinogen (<2.0) mg/dL Ur Leukocyte Esterase (Negative) Urine RBC (0-5) /hpf Urine WBC (0-5) /hpf Ur Squamous Epith Cells (0-4) /hpf Amorphous Sediment (None) /hpf Urine Bacteria (None) /hpf Hyaline Casts (0-2) /lpf Urine Mucus (None) /hpf Urine Opiates Screen (NotDetected) Ur Oxycodone Screen (NotDetected) Urine Methadone Screen (NotDetected) Ur Propoxyphene Screen (NotDetected) Ur Barbiturates Screen (NotDetected) U Tricyclic Antidepress (NotDetected) Ur Phencyclidine Scrn (NotDetected) Ur Amphetamines Screen (NotDetected) U Methamphetamines Scrn (NotDetected) U Benzodiazepines Scrn (NotDetected) Urine Cocaine Screen (NotDetected) U Marijuana (THC) Screen (NotDetected) Serum Alcohol mg/dL Coronavirus (PCR) (Not Detectd) Disposition Clinical Impression: Acute confusional state, Multiple sclerosis exacerbation, Rhabdomyolysis, Dehydration, Febrile illness, acute, Failure to thrive in adult, Frequent falls, Lactic acidosis Disposition: ADMITTED IP TO THIS HOSP Condition: Fair Referrals: None,Stated [REFERRING] - 1-2 days
[2020-12-12] MEDS: SODIUM CHLORIDE 0.9% 1,000 ML IV SCH ×2 (15:09→20:56)
[2020-12-12] MEDS ORDERED: ONDANSETRON 4 MG/2 ML VIAL IVP PRN (16:20)
--- NOTE | 2020-12-12 16:28 | P.HPIM ---
History of Present Illness H&P Date: 12/12/20 Chief Complaint: confusion Patient is a 60-year-old female with a past medical history of multiple sclerosis, foot drop who presented to the ER via EMS secondary to confusion. Per EMS report the patient has had recent multiple falls and saw her neurologist yesterday. In the ER she underwent an extensive evaluation. Vital signs within normal limits on arrival. Laboratory analysis showed a white blood cell count of 10.7, BUN 52, creatinine 2.87, AST 71, alkaline phosphatase 128, CK 750, ammonia less than 9. Urinalysis was negative. Urine drug screen is positive for opiates and marijuana. Lactic acid was elevated at 3.6 but normalized to 0.[address] head and cervical spine showed no acute osseous abnormality, and no acute intracranial abnormality. EKG demonstrated normal sinus rhythm at 70, normal axis, normal intervals. Arrangements was made for admission secondary to acute encephalopathy, renal failure, and lactic acidosis. Patient seen and examined at bedside in the ER. She repeatedly yells out "Oh my God". She is redirectable to calm down but does not follow commands. She says yes and no but this does not appear to be appropriate. Her sister, Justina, was contacted for medical history and states that the patient had significant multiple sclerosis and was just re-seen by her neurologist and told that her MS is progressing. She has a history of repeated falls secondary to foot drop and not using her cane and walker she is supposed to. She also has a history of frequent urinary tract infections. In September 2019 she was hospitalized at [facility] secondary to frequent falls with cerebral contusion (no history of brain bleed per sister). At that point in time and thought she may have mistaken the taken more medications or had ears and her medication regimen. She typically follows up with Dr. Federico Hassan out of [facility]. ([phone]) and PCP Dr. Rey [phone]. Review of Systems Unable to obtain review of systems secondary to altered mentation Past Medical History Past Medical History: Unable to Obtain Additional Past Medical History / Comment(s): Drop foot, Multiple sclerosis, Hx of falls, Hx of UTI, Depression and anxiety, HLD, [place] with stent Apr 2019, COPD, anemia, GERD, Fibromyalgia, neuropathy Additional Past Surgical History / Comment(s): cardiac cath, Hx of back fusion that failed and required multiple surgeries Smoking Status: Current every day smoker Past Alcohol Use History: Rare Additional Drug Use History / Comment(s): + THC - Past Family History Mother Family Medical History: No Reported History Father Family Medical History: Cancer, CVA/TIA, Memory Impairment Additional Family Medical History / Comment(s): COPD and asbestosis, PAD Medications and Allergies Home Medications Medication Instructions Recorded Confirmed Type Aspirin EC [Ecotrin Low Dose] 81 mg PO DAILY 12/12/20 12/12/20 History Atorvastatin [Lipitor] 40 mg PO DAILY 12/12/20 12/12/20 History Baclofen [Lioresal] 20 mg PO TID 12/12/20 12/12/20 History Cholecalciferol [Vitamin D3 (25 50 mcg PO DAILY 12/12/20 12/12/20 History Mcg = 1000 Iu)] DULoxetine HCL [Cymbalta] 30 mg PO BID 12/12/20 12/12/20 History Dalfampridine [Dalfampridine ER] 10 mg PO Q12H 12/12/20 12/12/20 History Ferrous Sulfate [Feosol] 325 mg PO DAILY 12/12/20 12/12/20 History Fluticasone/Vilanterol [Breo 1 puff INHALATION RT-BID 12/12/20 12/12/20 History Ellipta 100-25 Mcg Inhaler] Gabapentin 600 mg PO TID 12/12/20 12/12/20 History HYDROcodone/APAP 10-325MG [Maple 1 tab PO BID 12/12/20 12/12/20 History 10-325] Metoprolol Tartrate [Lopressor] 25 mg PO BID 12/12/20 12/12/20 History Omeprazole 20 mg PO DAILY 12/12/20 12/12/20 History QUEtiapine FUMARATE [SEROquel] 25 mg PO HS 12/12/20 12/12/20 History Teriflunomide [Aubagio] 14 mg PO DAILY 12/12/20 12/12/20 History Ticagrelor [Brilinta] 90 mg PO BID 12/12/20 12/12/20 History Allergies Allergy/AdvReac Type Severity Reaction Status Date / Time latex Allergy Unknown Verified 12/12/20 11:22 Physical Exam Osteopathic Statement: *. No significant issues noted on an osteopathic structural exam other than those noted in the History and Physical/Consult. Vitals: Vital Signs Temp Pulse Resp BP Pulse Ox 12/12/20 13:41 88 16 129/99 98 12/12/20 11:22 84 18 142/96 98 12/12/20 10:08 18 12/12/20 09:56 99.5 F 80 18 123/93 98 Intake and Output 12/12/20 12/12/20 12/12/20 06:59 14:59 22:59 Other: Weight 74.933 kg General: non toxic, mild distress, appears at stated age Derm: Multiple areas of bruising. large ecchymosis right lower mandible with swelling of right lower and left upper lip and tracking of bruising down into neck, large bruise right thigh, bruising bilateral feet and calf. Bruising bilateral arms Head: normocephalic, symmetric Eyes: EOMI, no lid lag, anicteric sclera, pupils equal round reactive to light ENT: Nose and ears atraumatic, no thrush, no pharyngeal erythema Neck: No thyromegaly, no cervical lymphadenopathy, trachea midline, supple Mouth: no lip lesion, mucus membranes dry Cardiovascular: S1S2 reg, no murmur, positive posterior tibial pulse bilateral, no edema, capillary refill less than 2 seconds Lungs: clear to ascultation bilateral, no ronchi, no rales, no wheeze, no accessory muscle use Abdominal: soft, nontender to palpation, no guarding, no appreciable organomegaly, normal bowel sounds Ext: no gross muscle atrophy, muscle strength muscle strength 5 out of 5 in all 4 extremities, no contractures Neuro: Pupils equal round reactive to light, extraocular motion intact, patient is unable to follow commands to stick out tongue. Light touch intact all 4 extremities, moving all 4 extremities and rolling over in bed independently. Psych: Awake, not following commands, echolalia, appears upset and anxious Results CBC & Chem 7: 12/12/20 10:03 12/12/20 10:03 Labs: Abnormal Lab Results - Last 24 Hours (Table) 12/12/20 12/12/20 12/12/20 Range/Units 09:52 10:03 10:03 WBC 10.7 H (3.8-10.6) k/uL APTT 21.6 L (22.0-30.0) sec Chloride (98-107) mmol/L Carbon Dioxide (22-30) mmol/L BUN (7-17) mg/dL Creatinine (0.52-1.04) mg/dL Glucose (74-99) mg/dL POC Glucose (mg/dL) 101 H (75-99) mg/dL Plasma Lactic Acid Jeremías (0.7-2.0) mmol/L AST (14-36) U/L Alkaline Phosphatase (38-126) U/L Creatine Kinase (30-135) U/L Urine Appearance (Clear) Urine Protein (Negative) Urine Ketones (Negative) Urine Blood (Negative) Ur Leukocyte Esterase (Negative) Amorphous Sediment (None) /hpf Urine Bacteria (None) /hpf Urine Mucus (None) /hpf Urine Opiates Screen (NotDetected) U Marijuana (THC) Screen (NotDetected) 12/12/20 12/12/20 12/12/20 Range/Units 10:03 10:03 11:22 WBC (3.8-10.6) k/uL APTT (22.0-30.0) sec Chloride 109 H (98-107) mmol/L Carbon Dioxide 19 L (22-30) mmol/L BUN 52 H (7-17) mg/dL Creatinine 2.86 H (0.52-1.04) mg/dL Glucose 107 H (74-99) mg/dL POC Glucose (mg/dL) (75-99) mg/dL Plasma Lactic Acid Jeremías 3.6 H* (0.7-2.0) mmol/L AST 71 H (14-36) U/L Alkaline Phosphatase 128 H (38-126) U/L Creatine Kinase 750 H (30-135) U/L Urine Appearance Cloudy H (Clear) Urine Protein 1+ H (Negative) Urine Ketones 1+ H (Negative) Urine Blood Small H (Negative) Ur Leukocyte Esterase Trace H (Negative) Amorphous Sediment Rare H (None) /hpf Urine Bacteria Rare H (None) /hpf Urine Mucus Rare H (None) /hpf Urine Opiates Screen Detected H (NotDetected) U Marijuana (THC) Screen Detected H (NotDetected) CT Scan - head: report reviewed Thrombosis Risk Factor Assmnt - DVT/VTE Prophylaxis DVT/VTE Prophylaxis: Pharmacologic Prophylaxis ordered Assessment and Plan Assessment: Acute encephalopathy -Possible Unintentional overdose of medications in conjunction with acute renal failure versus concussion versus other -Hold all sedative medications including baclofen, gabapentin, Maple, Seroquel, Cymbalta -Supportive care -Frequent reorientation Lactic acidosis -IV fluids -Lactic acid has normalized Acute kidney injury, anion gap metabolic acidosis -Unknown baseline renal function -IV fluids -Check renal ultrasound -Check postvoid residuals -Consult nephrology -Attempt to obtain baseline creatinine from primary care physician's office in a.m. Falls with recent head trauma, multiple bruises -CT head and neck without acute process -Supportive care -PT/OT evaluation -Neuro checks every 4 hours Multiple sclerosis -Consult neurology -Hold MS medications Coronary artery disease -Continue with aspirin, one toe, and statin -Beta clem Dyslipidemia -Statin Tobacco abuse -Nicotine replacement COPD without exacerbation -Continue with long-acting beta agonist and inhaled corticosteroid -As needed bronchodilators GERD - PPI The patient is admitted with an anticipated greater than 2 midnight stay for evaluation of confusion and acute renal failure. Surrogate decision-maker: Jeyson Horn CODE STATUS: Full DVT prophylaxis: SCDs Discussed with: nursing, ED physician, sister Anticipated discharge date: 3-[address]: unknown A total of 65 minutes was spent on the care of this complex patient more than 50% of the time was spent in counseling and care coordination.
--- NOTE | 2020-12-12 17:46 | US ---
EXAMINATION TYPE: US renals and bladder DATE OF EXAM: 12/12/2020 COMPARISON: NONE CLINICAL HISTORY: sandhya. SANDHYA extremely limited exam patient moving around.Started with left kidney imag es are suboptimal. EXAM MEASUREMENTS: Right Kidney: 8.1 x 4.1 x 2.8 cm Left Kidney: 8.2 x 3.5 x 3.2 cm Right Kidney: Limited no hydronephrosis seen. Left Kidney: Limited no hydronephrosis seen. Bladder: Not full Bilateral Jets seen: no There is no evidence for hydronephrosis at this point in time. IMPRESSION: There is cortical thinning in both kidneys consistent with atrophy. No evidence of renal mass or obst ruction.
[2020-12-12] MEDS: SYMBICORT 80-4.5 MCG INHALER INHALATION SCH (20:01)
[2020-12-12] MEDS: TICAGRELOR 90 MG TAB PO SCH (20:56)
[2020-12-12] MEDS: ACETAMINOPHEN TAB 325 MG TAB PO PRN (23:27)
[2020-12-13] MEDS: SODIUM CHLORIDE 0.9% 1,000 ML IV SCH ×4 (05:36→23:43)
[2020-12-13] MEDS ORDERED: ALBUTEROL NEBULIZED 2.5 MG/3 ML INHALATION PRN (08:07)
[2020-12-13] MEDS: FERROUS SULFATE 325 MG TAB PO SCH (08:27)
[2020-12-13] MEDS: NICOTINE 14MG/24HR PATCH TRANSDERM SCH (08:27)
[2020-12-13] MEDS: TICAGRELOR 90 MG TAB PO SCH ×2 (08:27→21:08)
[2020-12-13] MEDS: ASPIRIN 81 MG PO SCH (08:27)
[2020-12-13] MEDS: CHOLECALCIFEROL 25 MCG (1000 IU) TABLET PO SCH (08:27)
[2020-12-13] MEDS: PANTOPRAZOLE 40 MG TABLET PO SCH (08:27)
[2020-12-13] MEDS: SYMBICORT 80-4.5 MCG INHALER INHALATION SCH ×2 (08:33→19:28)
[2020-12-13] MEDS ORDERED: ATORVASTATIN 40 MG TAB PO SCH (09:00)
[2020-12-13] MEDS ORDERED: PANTOPRAZOLE 40 MG/10 ML VIAL IV SCH (09:00)
[2020-12-13 09:22] LABS: Basophils # (A) 0.04 X 10*3/uL (0.00-0.10); Basophils % (A) 0.5 %; Eosinophils # (A) 0.05 X 10*3/uL (0.04-0.35); Eosinophils % (A) 0.6 %; HCT 34.9 % (37.2-46.3); HGB 11.4 g/dL (12.0-15.0); Lymphocytes # (A) 1.29 X 10*3/uL (0.90-5.00); Lymphocytes % (A) 14.5 %; MCH 31.8 pg (27.0-32.0); MCHC 32.7 g/dL (32.0-37.0); MCV 97.2 fL (80.0-97.0); Mean Platelet Volume 10.8 fL (9.5-12.2); Monocytes # (A) 1.17 X 10*3/uL (0.20-1.00); Monocytes % (A) 13.2 %; Neutrophils # (A) 6.28 X 10*3/uL (1.80-7.70); Neutrophils % (A) 70.6 %; Platelet Count 158 X 10*3/uL (140-440); RBC 3.59 X 10*6/uL (4.10-5.20); RDW 14.6 % (11.5-14.5); WBC 8.88 X 10*3/uL (4.50-10.00)
[2020-12-13 09:52] LABS: African American GFR (CKD) 33.1 (60.0-200.0); Anion Gap 9.8 mmol/L (4.00-12.00); BUN/Creat Ratio 21.58 Ratio (12.00-20.00); Calcium 8.8 mg/dL (8.7-10.3); Carbon Dioxide 21.2 mmol/L (21.6-31.8); Magnesium 1.9 mg/dL (1.5-2.4); Non-African American GFR(CKD) 28.6 (60.0-200.0); Phosphorus 3.1 mg/dL (2.4-5.1); Potassium 3.7 mmol/L (3.5-5.5)
--- NOTE | 2020-12-13 12:46 | P.CNNES ---
History of Present Illness Consult date: 12/13/20 Requesting physician: Dylan Westfall Reason for Consult: Confusional state, MS exacerbation History of Present Illness: Patient is a 60-year-old female, came to the hospital by ambulance yesterday at 9:45 AM for altered mental status when she woke up yesterday morning. Patient lives with a boyfriend who told paramedics that she seemed okay when she went to bed last night. But on the morning of admission, she was confused with repeated questioning, would answer "yes" or "no". Per EMS flow sheet patient was moving arms excessively. Patient required repetitive direction of all commands. Patient was oriented to herself. Patient was noted to have bruise on the right chin dog blue/black, small bruise on the right forearm, bruises on the top of her both feet. It was reported that patient has been falling lately. Patient had an appointment with neurologist last week and was told her MS is progressing with changes in her acosta matter. Patient's blood pressure was 121/73, pulse rate 78, respiration 22 blood glucose 119. No focal weakness was noted. On arrival Vital signs arrival blood pressure 123/93, pulse rate 80, temperature 99.5. Chest x-ray showed no acute process. CT of the head showed suggestion of some atrophy and chronic-appearing white matter changes right frontal lobe. No acute intracranial processes identified. CT of the cervical spine showed no acute osseous abnormalities cervical spine. EKG shows normal sinus rhythm. Renal ultrasound showed cortical thinning in both kidneys consistent with atrophy. No evidence of renal mass or obstruction. Patient's blood test shows WBC 10.7 hemoglobin 13.6, platelets 212. PT/PTT normal, Chem-7 with BUN 52, creatinine 2.86. AST is 71, ALT 30, ammonia is normal. CPK 750 troponin negative, UA negative. Urine drug screen positive for opiates and marijuana. Blood alcohol level negative. Rodriguez S negative. Repeat blood test shows BUN 41, creatinine 1.9, CPK 1697. Patient currently takes Brilinta 90 mg twice a day, gabapentin 600 mg 3 times a day, hydrocodone 10/325 twice a day Lipitor 40 mg, baclofen 20 mg 3 times a day, duloxetine 30 mg twice a day, Ampyra 10 mg twice a day aspirin 81 mg, Seroquel 25 mg bedtime metoprolol 25 mg twice a day. Patient states that she was diagnosed with MS in 2007. She follows up with [facility], Dr. Iniguez. Patient has been on Aubagio, but recently had MRI of the brain showed increasing lesions, therefore plan was to change to Tecfidera. Patient states that on 09/30/2019 she had another spell, in which she woke up with legs feeling funny, and she had blood in the fetuses. She stood up and fell, smashed her head on the dresser and passed out. She states that she would try to get up and then fall and passed out, heparin 6 times until she was rushed to the hospital by her girlfriend Melissa, whom she was living at that time. Patient says that she stayed in a rehab facility for 8 months after that incident. Patient is quite confused, continues to change date from 09/30/2019 to 09/30/2020. Patient says that she is getting MS flareup every year. Patient states that yesterday morning when she woke up, she knew the bruises on the knee, but did not know how she got bruises on her chin, feet and the arms. She denies any previous history of seizures. She had cut inside of the lip but no tongue bite. Patient has smoked 1 pack per day from age 19 and 89, quit 8 months ago. Denies any alcohol use. She states that she uses medical marijuana only on the weekends. No other drug use. Denies diabetes. Review of Systems As above in detail. Patient complains of tremors, generalized weakness, memory disturbance. Denies abdominal pain nausea vomiting diarrhea. Denies any chest pain or shortness of breath wheezing or cough. No fever or chills. Complains of multiple bruises. All other review systems unremarkable. Past Medical History Past Medical History: Unable to Obtain Additional Past Medical History / Comment(s): Drop foot, Multiple sclerosis, Hx of falls, Hx of UTI, Depression and anxiety, HLD, [place] with stent Apr 2019, COPD, anemia, GERD, Fibromyalgia, neuropathy History of Any Multi-Drug Resistant Organisms: None Reported Past Surgical History: Unable to Obtain Additional Past Surgical History / Comment(s): cardiac cath, Hx of back fusion that failed and required multiple surgeries Past Anesthesia/Blood Transfusion Reactions: No Reported Reaction Smoking Status: Current every day smoker Past Alcohol Use History: Rare Additional Drug Use History / Comment(s): + THC - Past Family History Mother Family Medical History: No Reported History Father Family Medical History: Cancer, CVA/TIA, Memory Impairment Additional Family Medical History / Comment(s): COPD and asbestosis, PAD Medications and Allergies Home Medications Medication Instructions Recorded Confirmed Type Aspirin EC [Ecotrin Low Dose] 81 mg PO DAILY 12/12/20 12/12/20 History Atorvastatin [Lipitor] 40 mg PO DAILY 12/12/20 12/12/20 History Baclofen [Lioresal] 20 mg PO TID 12/12/20 12/12/20 History Cholecalciferol [Vitamin D3 (25 50 mcg PO DAILY 12/12/20 12/12/20 History Mcg = 1000 Iu)] DULoxetine HCL [Cymbalta] 30 mg PO BID 12/12/20 12/12/20 History Dalfampridine [Dalfampridine ER] 10 mg PO Q12H 12/12/20 12/12/20 History Ferrous Sulfate [Feosol] 325 mg PO DAILY 12/12/20 12/12/20 History Fluticasone/Vilanterol [Breo 1 puff INHALATION RT-BID 12/12/20 12/12/20 History Ellipta 100-25 Mcg Inhaler] Gabapentin 600 mg PO TID 12/12/20 12/12/20 History HYDROcodone/APAP 10-325MG [Boykin 1 tab PO BID 12/12/20 12/12/20 History 10-325] Metoprolol Tartrate [Lopressor] 25 mg PO BID 12/12/20 12/12/20 History Omeprazole 20 mg PO DAILY 12/12/20 12/12/20 History QUEtiapine FUMARATE [SEROquel] 25 mg PO HS 12/12/20 12/12/20 History Teriflunomide [Aubagio] 14 mg PO DAILY 12/12/20 12/12/20 History Ticagrelor [Brilinta] 90 mg PO BID 12/12/20 12/12/20 History Allergies Allergy/AdvReac Type Severity Reaction Status Date / Time latex Allergy Unknown Verified 12/12/20 11:22 Physical Examination - Vital Signs Vital Signs: Vital Signs Temp Pulse Pulse Resp BP BP Pulse Ox 12/13/20 08:00 98.1 F 84 20 171/89 98 03/22/21 02:00 97.7 F 83 16 138/64 93 L 12/12/20 20:00 97.4 F L 79 17 179/77 99 12/12/20 19:00 78 18 150/98 98 12/12/20 17:52 97.9 F 91 18 149/97 99 12/12/20 13:41 88 16 129/99 98 12/12/20 11:22 84 18 142/96 98 Intake and Output 12/12/20 12/13/20 12/13/20 22:59 06:59 14:59 Intake Total 1040 300 Balance 1040 300 Intake: Intake, IV Titration 1040 Amount Sodium Chloride 0.9% 1, 1040 000 ml @ 130 mls/hr IV . [id number] [facility] Rx#:[id number] Oral 300 Other: Voiding Method Bedside Commode Bedside Commode Diaper Diaper # Voids 2 1 Weight 74.933 kg On examination patient is a middle aged female, in no acute distress. Patient states that it is December 2020 and that she is in [facility] and that she is living in [place], [place]. She knows name of the current president, and that it is spring. Patient is slightly tremulous, appears slightly confused, mixes up with the dates. Speech and language functions are normal, no aphasia or dysarthria. On cranial exam showed pupils are round and reactive to light, visual iniguez are full on confrontation, extraocular muscles are intact with nystagmus. Face is symmetric. Patient is a big bruise over the right weinberg, and the slight laceration over the right anterior chin region. Tongue protrudes the midline. Palatal elevation sensation normal, hearing and shoulder shrug normal. Muscle strength testing there is no pronator drift and the strength is normal in arms and legs distally and proximally reflexes are 1 in the upper limbs, 2 in the lower limbs and plantars downgoing. Sensory to touch is equal. No ataxia for [id number] testing, tone and bulk of muscles normal. Patient appears tremulous. Gait deferred. On general exam patient is no carotid bruit or murmur, peripheral pulses present. Abdomen soft nontender. Chest is clear. Results - Laboratory Findings CBC and BMP: 12/13/20 05:18 12/13/20 05:18 Abnormal Lab Findings: Abnormal Labs 12/12/20 12/12/20 12/12/20 09:52 10:03 10:03 WBC 10.7 H RBC Hgb Hct MCV RDW Immature Gran # Monocytes # APTT 21.6 L Chloride Carbon Dioxide BUN Creatinine Est GFR (CKD-EPI)AfAm Est GFR (CKD-EPI)NonAf BUN/Creatinine Ratio Glucose POC Glucose (mg/dL) 101 H Plasma Lactic Acid Jeremías AST Alkaline Phosphatase Creatine Kinase Urine Appearance Urine Protein Urine Ketones Urine Blood Ur Leukocyte Esterase Amorphous Sediment Urine Bacteria Urine Mucus Urine Opiates Screen U Marijuana (THC) Screen 12/12/20 12/12/20 12/12/20 10:03 10:03 11:22 WBC RBC Hgb Hct MCV RDW Immature Gran # Monocytes # APTT Chloride 109 H Carbon Dioxide 19 L BUN 52 H Creatinine 2.86 H Est GFR (CKD-EPI)AfAm Est GFR (CKD-EPI)NonAf BUN/Creatinine Ratio Glucose 107 H POC Glucose (mg/dL) Plasma Lactic Acid Jeremías 3.6 H* AST 71 H Alkaline Phosphatase 128 H Creatine Kinase 750 H Urine Appearance Cloudy H Urine Protein 1+ H Urine Ketones 1+ H Urine Blood Small H Ur Leukocyte Esterase Trace H Amorphous Sediment Rare H Urine Bacteria Rare H Urine Mucus Rare H Urine Opiates Screen Detected H U Marijuana (THC) Screen Detected H 12/12/20 12/13/20 12/13/20 19:56 05:18 05:18 WBC RBC 3.59 L Hgb 11.4 L Hct 34.9 L MCV 97.2 H RDW 14.6 H Immature Gran # 0.05 H Monocytes # 1.17 H APTT Chloride 113 H Carbon Dioxide 21.2 L BUN 41.0 H Creatinine 1.9 H Est GFR (CKD-EPI)AfAm 33.1 L Est GFR (CKD-EPI)NonAf 28.6 L BUN/Creatinine Ratio 21.58 H Glucose POC Glucose (mg/dL) Plasma Lactic Acid Jeremías AST Alkaline Phosphatase Creatine Kinase 1136 H* 1697 H* Urine Appearance Urine Protein Urine Ketones Urine Blood Ur Leukocyte Esterase Amorphous Sediment Urine Bacteria Urine Mucus Urine Opiates Screen U Marijuana (THC) Screen Assessment and Plan Assessment: * Altered mental status, probably delirium, probably likely due to toxic metabolic encephalopathy. * Acute renal failure, improving. * Psychoactive medications on background of acute renal insufficiency may be contributing to delirium. * Recurrent falls, syncope, unclear cause. * Rhabdomyolysis, due to recurrent falls * Multiple sclerosis, currently in remission. Her muscle strength is fairly normal. Exam is nonfocal. * Marijuana use. * X tobacco use Plan: * EEG to rule out any epileptiform activity. * Carotid Doppler rule out stenosis. * B12, folate, TSH, RPR. * I do not see any obvious signs of MS exacerbation. I would hold off on corticosteroids, as steroids can make delirium further worse. * We will follow.
--- NOTE | 2020-12-13 12:59 | US ---
EXAMINATION TYPE: US carotid duplex BILAT DATE OF EXAM: 12/13/2020 COMPARISON: NONE CLINICAL HISTORY: Syncopal spells, rule out stenosis. AMS. No HTN. EXAM MEASUREMENTS: RIGHT: Peak Systolic Velocity (PSV) cm/sec ----- Right CCA: 85.1 ----- Right ICA: 93.5 ----- Right ECA: 148.0 ICA/CCA ratio: 1.1 RIGHT: End Diastole cm/sec ----- Right CCA: 13.6 ----- Right ICA: 23.4 ----- Right ECA: 16.3 LEFT: Peak Systolic Velocity (PSV) cm/sec ----- Left CCA: 80.2 ----- Left ICA: 149.0 ----- Left ECA: 117.0 ICA/CCA ratio: 1.9 LEFT: End Diastole cm/sec ----- Left CCA: 15.9 ----- Left ICA: 45.1 ----- Left ECA: 0.0 VERTEBRALS (direction of flow): Right Vertebral: Antegrade Left Vertebral: Antegrade Rhythm: Normal Wall thickening. No plaque seen. Elevated right ECA and left distal ICA. IMPRESSION: No evidence for hemodynamically significant stenosis. Criteria for Assigning % of Stenosis / Diameter reduction (Estimation based on the indirect measurements of the internal carotid artery velocities (ICA PSV). 1. Normal (no stenosis)=ICA PSV < 125 cm/s: ratio < 2.0: ICA EDV<40 cm/s. 2. Less than 50% stenosis=ICA PSV < 125 cm/s: ratio < 2.0: ICA EDV<40 cm/s. 3. 50 to 69% stenosis=ICA PSV of 125 to 230 cm/s: ration 2.0 ? 4.0: ICA EDV 40-100 cm/s. 4. Greater than 70% stenosis to near occlusion= ICA PSV > 230 cm/s: ratio > 4.0: ICA EDV > 100 cm/s. 5. Near occlusion= ICA PSV velocities may be low or undetectable: variable ratio and ICA EDV. 6. Total occlusion=unable to detect flow.
[2020-12-13] MEDS: ACETAMINOPHEN TAB 325 MG TAB PO PRN (15:11)
--- NOTE | 2020-12-13 15:31 | P.PN ---
Subjective Progress Note Date: 12/13/20 (jaquelin charting seen at 0805) Principal diagnosis: altered mentation Patient is a 60-year-old female with a past medical history of multiple sclerosis, foot drop who presented to the ER via EMS secondary to confusion. Per EMS report the patient has had recent multiple falls and saw her neurologist yesterday. In the ER she underwent an extensive evaluation. Vital signs within normal limits on arrival. Laboratory analysis showed a white blood cell count of 10.7, BUN 52, creatinine 2.87, AST 71, alkaline phosphatase 128, CK 750, ammonia less than 9. Urinalysis was negative. Urine drug screen is positive for opiates and marijuana. Lactic acid was elevated at 3.6 but normalized to 0.[address] head and cervical spine showed no acute osseous abnormality, and no acute intracranial abnormality. EKG demonstrated normal sinus rhythm at 70, normal axis, normal intervals. Arrangements was made for admission secondary to acute encephalopathy, renal failure, and lactic acidosis. Her CPK continue to elevate and IV fluids were continued. By the morning of she had improved mentation. Her CKs were continuing to climb. Renal function was improved. She is unable to recount how she had bruising. Patient seen and examined at bedside. She denies any headache, lightheadedness, dizziness. She does report some jaw pain. She denies any chest pain or shortness of breath. General: non toxic, no distress, appears at stated age Derm: ultiple areas of bruising. large ecchymosis right lower mandible with swelling of right lower and left upper lip and tracking of bruising down into neck, large bruise right thigh, bruising bilateral feet and calf. Bruising bilateral arms Head: atraumatic, normocephalic, symmetric Eyes: EOMI, no lid lag, anicteric sclera Mouth: no lip lesion, mucus membranes moist Cardiovascular: S1S2 reg, no murmur, positive posterior tibial pulse bilateral, Lungs: CTA bilateral, no rhonchi, no rales , no accessory muscle use Abdominal: soft, nontender to palpation, no guarding, no appreciable organomegaly Ext: no gross muscle atrophy, no edema, no contractures Neuro: CN II-XI grossly intact, no focal neuro deficits Psych: Alert, oriented, appropriate affect Acute Toxic encephalopathy -Possible Unintentional overdose of medications in conjunction with acute renal failure versus concussion versus other -Hold all sedative medications including baclofen, gabapentin, [place], Seroquel, Cymbalta -Supportive care -Frequent reorientation - neuro recs: eeg, B 12, folate, TSH, RPR Pyrexia - UA negative - blood cultures pending - follow fever profile - check CXR - COVID negative Acute kidney injury -Unknown baseline renal function -IV fluids -renal ultrasound with cortical thinning -await nephrology recs -Attempt to obtain baseline creatinine from primary care physician's office, nursing aware Falls with recent head trauma, multiple bruises -CT head and neck without acute process -Supportive care -PT/OT evaluation -Neuro checks every 4 hours - social work evaluation Multiple sclerosis - neurology recs appreciated -Hold MS medications until approved by neurology Coronary artery disease -Continue with aspirin, brillenta, and statin -Beta clem Dyslipidemia -Statin Tobacco abuse -Nicotine replacement COPD without exacerbation -Continue with long-acting beta agonist and inhaled corticosteroid -As needed bronchodilators GERD - PPI Lactic acidosis, resolved anion gap metabolic acidosis, improved DVT prophylaxis: SCDs Discussed with: nursing, patient Anticipated discharge date: 2-[address]: unknown A total of 35 minutes was spent on the care of this complex patient more than 50% of the time was spent in counseling and care coordination. Objective - Vital Signs Vital signs: Vital Signs Temp 98.1 F 12/13/20 08:00 Pulse 84 12/13/20 08:00 Resp 20 12/13/20 08:00 BP 171/89 12/13/20 08:00 Pulse Ox 98 12/13/20 08:00 Intake & Output 12/12/20 12/13/20 12/13/20 18:59 06:59 18:59 Intake Total 1040 500 Balance 1040 500 Weight 74.933 kg Intake: Intake, IV Titration 1040 Amount Sodium Chloride 0.9% 1, 1040 000 ml @ 130 mls/hr IV . [id number] [facility] Rx#:[id number] Oral 500 Other: Voiding Method Bedside Commode Bedside Commode Diaper Diaper # Voids 2 1 - Labs CBC & Chem 7: 12/13/20 05:18 12/13/20 05:18 Labs: Abnormal Lab Results - Last 24 Hours (Table) 12/12/20 12/13/20 12/13/20 Range/Units 19:56 05:18 05:18 RBC 3.59 L (4.10-5.20) X 10*6/uL Hgb 11.4 L (12.0-15.0) g/dL Hct 34.9 L (37.2-46.3) % MCV 97.2 H (80.0-97.0) fL RDW 14.6 H (11.5-14.5) % Immature Gran # 0.05 H (0.00-0.04) X 10*3/uL Monocytes # 1.17 H (0.20-1.00) X 10*3/uL Chloride 113 H (96-109) mmol/L Carbon Dioxide 21.2 L (21.6-31.8) mmol/L BUN 41.0 H (9.0-27.0) mg/dL Creatinine 1.9 H (0.6-1.5) mg/dL Est GFR (CKD-EPI)AfAm 33.1 L (60.0-200.0) Est GFR (CKD-EPI)NonAf 28.6 L (60.0-200.0) BUN/Creatinine Ratio 21.58 H (12.00-20.00) Ratio Creatine Kinase 1136 H* 1697 H* (30-135) U/L Microbiology - Last 24 Hours (Table) 12/12/20 12:45 Blood Culture - Preliminary Blood No Growth after 24 hours 12/12/20 13:00 Blood Culture - Preliminary Blood No Growth after 24 hours
--- NOTE | 2020-12-13 15:41 | CONS ---
CONSULTATION REASON FOR CONSULT: Renal failure. HISTORY OF PRESENT ILLNESS: The patient is a 60-year-old female with a history of gastroesophageal reflux disease as well as a history of multiple sclerosis who was admitted to the hospital with mental status changes with recent multiple falls at home. The patient denies any prior history of kidney diseases. She was found to have a creatinine of 2.87. Drug screen was positive for opiates and marijuana. CK level was elevated at 1697. Patient denies any prior history of kidney diseases. She is currently maintained on IV fluids and creatinine is down to 1.9 mg/dL. Blood pressure has not been low; in fact, it is high. Medications at home prior to admission do not include any nonsteroidal anti- inflammatory agents. Patient denies any recent IV contrast administration. Renal ultrasound does not show any evidence of hydronephrosis. Patient has been voiding in a diaper. PAST MEDICAL HISTORY: Difficult to obtain. MEDICATIONS: Medications prior to admission included aspirin, Lipitor, Cymbalta, iron, Lopressor, gabapentin, Seroquel, omeprazole, teriflunomide, Brilinta. ALLERGIES: ALLERGIES include LATEX. REVIEW OF SYSTEMS: As per HPI. PHYSICAL EXAMINATION: Patient is comfortable, awake. She is not in any acute distress. She appears nervous. VITAL SIGNS: Blood pressure was 171/89, heart rate 84 per minute. Patient is afebrile. EXAMINATION OF THE HEART: S1 and S2. EXAMINATION OF LUNGS: Bilateral breath sounds are heard. ABDOMEN: Soft, non-tender. Examination of lower extremities shows no significant edema. Bruising is noted no the face and some old bruises noted on the legs as well. LABS: Hemoglobin 11.4, sodium 144, potassium 3.7. CO2 is 21, BUN 41, creatinine 1.9. CK 1697. UA shows 1+ protein, small blood noted, WBCs of 3. Urine drug screen positive for opiates and marijuana. ASSESSMENT: 1. Acute kidney injury, most likely prerenal, currently improving with IV hydration. 2. Mild rhabdomyolysis. 3. History of multiple sclerosis. 4. History of multiple falls. 5. Mental status changes, being followed by Neurology. PLAN: Continue with IV fluids for now. Try to obtain baseline creatinine. Follow up on CK level. Check TSH level if not done. Agree with holding medications until evaluated by Neurology. Thank you for this consultation. Will continue to follow the patient with you during her hospitalization. MMODL / IJN: [id number] /
--- NOTE | 2020-12-13 15:41 | EEG ---
ELECTROENCEPHALOGRAM REPORT DATE OF SERVICE: 12/13/2020 PREAMBLE: This is a 60-year-old female, with recurrent syncopal spells. This study is performed to evaluate for any epileptiform activity. EEG FINDINGS: This is a 21 channel routine EEG recording in a patient utilizing 10/20 international system with referential and bipolar montages. Background consists of well developed, well regulated, moderate voltage activity in 8 hertz alpha. Background is posterior dominant and reactive to eye opening and closing. Photic driving response was not seen. Different stages of sleep were not seen. No focal or generalized epileptiform activity was seen. The EKG channel showed no arrhythmia. IMPRESSION: This is a normal awake EEG. No focal, lateralized, or epileptiform activity was seen. MMODL / IJN: [id number] /
--- NOTE | 2020-12-13 15:53 | XR ---
EXAMINATION TYPE: XR chest 1V portable DATE OF EXAM: 12/13/2020 HISTORY: Shortness of breath. COMPARISON: 12/12/2020 TECHNIQUE: Single view of the chest is submitted. FINDINGS: Demonstrated are scattered senescent parenchymal change. There is no evidence for focal infiltrate. The heart is stable. Hilar and mediastinal structures are within normal limits. Degenerative changes are seen of the dorsal spine. IMPRESSION: 1. Chronic changes without evidence for acute pulmonary disease.
[2020-12-13 19:19] LABS: Folate, Serum >24.0 ng/mL
[2020-12-13] MEDS: ATORVASTATIN 40 MG TAB PO SCH (21:08)
[2020-12-14] MEDS: SYMBICORT 80-4.5 MCG INHALER INHALATION SCH ×2 (07:49→19:10)
[2020-12-14] MEDS: PANTOPRAZOLE 40 MG TABLET PO SCH (08:17)
[2020-12-14] MEDS: FERROUS SULFATE 325 MG TAB PO SCH (08:17)
[2020-12-14] MEDS: TICAGRELOR 90 MG TAB PO SCH ×2 (08:17→20:10)
[2020-12-14] MEDS: CHOLECALCIFEROL 25 MCG (1000 IU) TABLET PO SCH (08:17)
[2020-12-14] MEDS: ASPIRIN 81 MG PO SCH (08:18)
[2020-12-14] MEDS: NICOTINE 14MG/24HR PATCH TRANSDERM SCH (08:18)
[2020-12-14] MEDS ORDERED: DULoxetine HCL 30 MG CAPSULE.DR PO SCH (09:00)
[2020-12-14 09:42] LABS: African American GFR (CKD) 53 (>60 ml/min/1.73 sqM); Anion Gap 8 mmol/L; Blood Urea Nitrogen 18 mg/dL (7-17); Calcium 8.6 mg/dL (8.4-10.2); Carbon Dioxide 18 mmol/L (22-30); Chloride 111 mmol/L (98-107); Glucose 98 mg/dL (74-99); Non-African American GFR(CKD) 46 (>60 ml/min/1.73 sqM); Potassium 3.6 mmol/L (3.5-5.1); Sodium 137 mmol/L (137-145)
--- NOTE | 2020-12-14 10:55 | P.PN ---
Subjective Progress Note Date: 12/14/20 Patient is awake and alert. Nursing staff informed me that patient has been having hallucination and talking to herself in her room. She was awake and alert when I saw her. She was oriented 3. Patient informed me that nursing staff told her over sedated today earlier. She had times. Inappropriate and then start telling me that she is in the dye and told me that she has cancer. When I ask her to be more specific she said that someone told her that she has cancer here in the hospital which nursing staff informed me that is not accurate. Her mentation/thoughts appears to be fluctuating. Objective - Vital Signs Vital signs: Vital Signs Temp 98.3 F 12/14/20 00:32 Pulse 104 H 12/14/20 00:32 Resp 17 12/14/20 07:58 BP 170/89 12/14/20 00:32 Pulse Ox 99 12/14/20 00:32 Intake & Output 12/13/20 12/14/20 12/14/20 18:59 06:59 18:59 Intake Total 500 Balance 500 Intake: Oral 500 Other: Voiding Method Bedside Commode Bedside Commode Diaper # Voids 3 2 - Exam General: The patient is awake and alert, in no distress. There is area of bruising in the chin with a small laceration appeared healing well. Eye: there is normal conjunctiva bilaterally. Neck: The neck is supple, there is no JVD. Cardiovascular: Normal S1-S2, no S3-S4, no murmurs. Respiratory: Lungs clear to auscultation bilaterally Gastrointestinal: Abdomen is soft, nontender Musculoskeletal: There is no pedal edema. Neurological:. Speech is normal. Skin: Skin is warm and dry - Labs CBC & Chem 7: 12/13/20 05:18 12/14/20 04:38 Labs: Abnormal Lab Results - Last 24 Hours (Table) 12/13/20 12/13/20 12/14/20 Range/Units 05:18 17:26 04:38 Chloride (98-107) mmol/L Carbon Dioxide (22-30) mmol/L BUN (7-17) mg/dL Creatinine (0.52-1.04) mg/dL Creatine Kinase 1231 H* 675 H (26-186) U/L TSH 0.180 L (0.350-5.500) uIU/mL 12/14/20 Range/Units 04:38 Chloride 111 H (98-107) mmol/L Carbon Dioxide 18 L (22-30) mmol/L BUN 18 H (7-17) mg/dL Creatinine 1.29 H (0.52-1.04) mg/dL Creatine Kinase (26-186) U/L TSH (0.350-5.500) uIU/mL Microbiology - Last 24 Hours (Table) 12/12/20 12:45 Blood Culture - Preliminary Blood No Growth after 24 hours 12/12/20 13:00 Blood Culture - Preliminary Blood No Growth after 24 hours Assessment and Plan Assessment: Patient is a 60-year-old female with a past medical history of multiple sclerosis, foot drop who presented to the ER via EMS secondary to confusion. Per EMS report the patient has had recent multiple falls and saw her neurologist yesterday. In the ER she underwent an extensive evaluation. CT head and cervical spine showed no acute osseous abnormality, and no acute intracranial abnormality. Patient was admitted to the hospital for further management of her medical problems noted below. Acute Toxic encephalopathy -Possibly secondary to underlying SANDHYA and rhabdomyolysis -Hold all sedative medications including baclofen, gabapentin, [place], Seroquel -Frequent reorientation -Thyroid function tests, vitamin B12, and folate levels within acceptable range -Patient had a low-grade fever but no evidence of underlying infection. UA, blood culture, and COVID-19 screen all negative Worsening hallucinations -With possible underlying psychosis. Metabolic derangement improved significantly but patient is still having psychosis. We will consult psychiatry for further evaluation Acute kidney injury -Improved significantly with IV fluid hydration. Seen and evaluated by nephrology. -renal ultrasound with cortical thinning Falls with recent head trauma, multiple bruises -CT head and neck without acute process -PT/OT evaluation - social work evaluation Multiple sclerosis -No evidence of exacerbation per neurology. Continue home regimen Coronary artery disease -Continue with aspirin, brillenta, and statin -Beta clem Dyslipidemia -Statin Tobacco abuse -Nicotine replacement COPD without exacerbation -Continue with long-acting beta agonist and inhaled corticosteroid -As needed bronchodilators GERD - PPI Lactic acidosis, resolved anion gap metabolic acidosis, improved DVT prophylaxis: SCDs Discussed with: nursing, patient Anticipated discharge date: 2-[address]: unknown A total of 35 minutes was spent on the care of this complex patient more than 50% of the time was spent in counseling and care coordination.
[2020-12-14] MEDS: SODIUM CHLORIDE 0.9% 1,000 ML IV SCH ×2 (11:01→11:24)
[2020-12-14] MEDS: DALFAMPRIDINE PO SCH ×2 (11:24→20:12)
--- NOTE | 2020-12-14 13:38 | P.CN ---
Psychiatric Consult - . Consult date: 12/14/20 Consult:: IDENTIFYING DATA: This patient is a 60-year-old female with a significant history of MS was admitted to the hospital for confusion HISTORY OF PRESENT ILLNESS: The patient presented to the hospital on 12/12/20, brought into the hospital by EMS with reports of altered mental status. The patient was noted to wake up significantly altered and confused as per boyfriend who is living with her. The patient also had a fall which led to bruising on her chin. Currently, the patient is not a clear historian and often requires redirection as she tends to go on tangents and is often difficult to follow. She is also noted to be very repetitive. She does admit to hallucinations at this time. She states that she is messages on the screen in front of her as well as hearing the voice of her boyfriend. Furthermore, the patient is able to identify that these are not normal. As per discussion with the patient's sister, the patient has not experienced any significant history of mental illness aside from depression and anxiety in the past. There is no reported history of schizophrenia or bipolar disorder. The patient has had a similar episode of confusion in September of 2019 which was a result of a urinary tract infection combined with the patient is managing her medications. The patient's sister suspects that since the patient moved into a more independent living situation with her boyfriend, she has not appropriately taken her prescribed medications which led to her current episode of confusion similar to that of the last episode in September 2019. The patient's sister also suspects that the patient has had issues with diarrhea and has also had issues with maintaining hydration while at home. Currently, the patient is not reporting any suicidal or homicidal ideation, intention, and/or plan. She is able to identify that she is at [facility] and is able to identify her name and the year. She is uncertain of the month. The patient also appears confused as to when she was brought to the hospital. PAST PSYCHIATRIC HISTORY: Patient has a a history of depression and anxiety. The patient is currently on a regimen of Cymbalta 30 mg by mouth twice a day and Seroquel 25 mg at bedtime. Both patient and sister deny any previous psychiatric hospitalizations. Patient denies any psychiatric outpatient follow- up. Patient denies any history of suicide attempts in the past. PAST MEDICAL HISTORY: Past Medical History: Unable to Obtain Additional Past Medical History / Comment(s): Drop foot, Multiple sclerosis, Hx of falls, Hx of UTI, Depression and anxiety, HLD, AL with stent Apr 2019, COPD, anemia, GERD, Fibromyalgia, neuropathy History of Any Multi-Drug Resistant Organisms: None Reported Past Surgical History: Unable to Obtain Additional Past Surgical History / Comment(s): cardiac cath, Hx of back fusion that failed and required multiple surgeries ALLERGIES: Latex CHEMICAL DEPENDENCY HISTORY: Patient reports that she quit tobacco this past September. She reports frequent marijuana use. She denies any alcohol or illicit drug use. FAMILY PSYCHIATRIC/SUBSTANCE USE HISTORY: No reported family psychiatric or substance abuse history. SOCIAL HISTORY: Patient was born and raised in [place], [place]. She has been since 1992 after being for 10 years. She has 4 adult sons. She reports a 12th grade education. She has not worked since 2001 secondary to her multiple sclerosis diagnosis. She currently lives with her boyfriend/fimegan Posey as well as Kalpseh's nephew. MENTAL STATUS EXAM: General Appearance: Patient appears to be stated age is alert, pleasant, and cooperative. Patient appears to have fair hygiene and grooming wearing hospital gown with fair eye contact. Behavior: Patient is calmly lying in bed without any agitated behavior. Psychomotor activity appears slightly elevated. Speech: Patient's speech is fluent and nonpressured. Difficult to follow. Hyperverbal. Mood/Affect: Patient reports their mood is "feeling okay", affect is congruent but pleasantly confused. Suicidality/Homicidality: Patient denies having any suicidal or homicidal ideation intent or plan. Perceptions: The patient is endorsing both auditory and visual hallucinations. Though content/process: There is no evidence of delusional thought content. Thought process appears to be disorganized. Memory and concentration: Patient is alert and oriented 2. Concentration is grossly poor. The patient is unable to spell "WORLD" backwards. Judgment and insight: Very poor IMPRESSIONS: Altered mental status, likely delirium secondary to toxic metabolic encephalopathy versus polypharmacy - patient has fluctuating cognition and noted lab abnormalities including acute kidney injury - The patient has no significant history of schizophrenia or bipolar disorder. Current presentation and affect are not consistent with these diagnoses. Acute renal failure, improving Abdomen mildly psychosis Multiple sclerosis Cannabis use PLAN: -At this time patient DOES NOT meet criteria for inpatient psychiatric admission. -Patient DOES NOT have decision making capacity at this time and is unable to reason through and communicate/appreciate the risks, benefits and alternatives to treatment. -Delirium precautions recommended with patient including - avoiding use of narcotics and DIRECTOR EXPORT sedatives, limit anticholinergic medications when possible, frequent re-orientation, minimize use of restraints, open window shades during the day and close them at night -Would recommend the following medication changes/additions: We will decrease the patient's Cymbalta from 30 mg by mouth twice a day to 20 mg by mouth twice a day due to concern for polypharmacy/acute kidney insult. Agree to hold Seroquel 25 mg at bedtime, and gabapentin 600 mg po tid. -TSH, B12, folate, RPR within normal limits -Consider limiting patient's [place] and gabapentin upon discharge. -Attempted to summer counselor with patient on cannabis use. -Will continue to follow along 12/14/20 13:23
--- NOTE | 2020-12-14 16:17 | PN ---
PROGRESS NOTE Patient is seen for followup for acute kidney injury. Her renal function had improved significantly. The patient also had mild rhabdomyolysis and the CK level has been decreasing. This morning she is confused. Psychiatric evaluation will be requested. The patient states that she has been told she has cancer and she will be dying. PHYSICAL EXAMINATION: Blood pressure was 163/80, heart rate 108 per minute. EXAMINATION OF THE HEART: S1, S2. EXAMINATION OF THE LUNGS: Bilateral breath sounds are heard. Abdomen is soft, nontender. Examination of lower extremities shows no evidence of edema. TRAFFIC INSPECTOR exam shows patient is confused. She is moving all 4 extremities. LABS: Labs show sodium 137, potassium 3.6, BUN 18, serum creatinine 1.29, CO2 is 18. ASSESSMENT: 1. Acute kidney injury prerenal currently improved. Can discontinue IV fluids as patient has removed her IV. 2. Mild rhabdomyolysis, currently improved. 3. Mental status changes, being followed by Neurology. Psychiatry has been consulted as well. This patient appears delusional. 4. History of multiple sclerosis. 5. History of multiple falls/bruising. PLAN: Okay to maintain off of IV fluids. Encourage increased oral intake and maintain oral hydration. Repeat labs in a.m. MMODL / IJN: [id number] /
[2020-12-14] MEDS: ACETAMINOPHEN TAB 325 MG TAB PO PRN (16:30)
--- NOTE | 2020-12-14 17:16 | P.PN ---
Subjective Progress Note Date: 12/14/20 Patient appears very delirious, very shaky. Patient is fully oriented. Offers no complaints. Objective - Vital Signs Vital signs: Vital Signs Temp 100.1 F H 12/14/20 15:13 Pulse 107 H 12/14/20 15:13 Resp 20 12/14/20 15:13 BP 175/79 12/14/20 15:13 Pulse Ox 98 12/14/20 15:13 Intake & Output 12/13/20 12/14/20 12/14/20 18:59 06:59 18:59 Intake Total 500 Balance 500 Intake: Oral 500 Other: Voiding Method Bedside Commode Bedside Commode Diaper # Voids 3 2 - Exam Patient is fully oriented, knows it is 12/14/2020 and that she is in [facility]. Speech is slightly pressured. Patient is obviously delirious. Very shaky in the arms. Left arm is swollen. Detailed testing deferred. - Labs CBC & Chem 7: 12/13/20 05:18 12/14/20 04:38 Labs: Abnormal Lab Results - Last 24 Hours (Table) 12/13/20 12/13/20 12/14/20 Range/Units 05:18 17:26 04:38 Chloride (98-107) mmol/L Carbon Dioxide (22-30) mmol/L BUN (7-17) mg/dL Creatinine (0.52-1.04) mg/dL Creatine Kinase 1231 H* 675 H (26-186) U/L TSH 0.180 L (0.350-5.500) uIU/mL 12/14/20 Range/Units 04:38 Chloride 111 H (98-107) mmol/L Carbon Dioxide 18 L (22-30) mmol/L BUN 18 H (7-17) mg/dL Creatinine 1.29 H (0.52-1.04) mg/dL Creatine Kinase (26-186) U/L TSH (0.350-5.500) uIU/mL Microbiology - Last 24 Hours (Table) 12/12/20 12:45 Blood Culture - Preliminary Blood No Growth after 48 hours 12/12/20 13:00 Blood Culture - Preliminary Blood No Growth after 48 hours Assessment and Plan Assessment: * Altered mental status, probably delirium, probably likely due to toxic metabolic encephalopathy. * Acute renal failure, improving. * Psychoactive medications on background of acute renal insufficiency may be contributing to delirium. * Recurrent falls, syncope, unclear cause. * Rhabdomyolysis, due to recurrent falls * Multiple sclerosis, currently in remission. Her muscle strength is fairly normal. Exam is nonfocal. * Marijuana use. * X tobacco use Plan: * EEG was normal. No epileptiform activity. * Carotid Doppler showed no significant stenosis. Antegrade flow in both vertebral arteries. * B12 624, folate > 24.0, vitamin D 48.6 TSH 0.74 normal, RPR nonreactive. * I do not see any obvious signs of MS exacerbation. I would hold off on corticosteroids, as steroids can make delirium further worse. * White cells are not normal 8.8, and renal functions almost back to normal. * Medical management as per IM.
[2020-12-14] MEDS: cloNIDine HCL 0.2 MG TAB PO PRN (20:11)
[2020-12-14] MEDS: ATORVASTATIN 40 MG TAB PO SCH (20:12)
[2020-12-14] MEDS: DULoxetine HCL 20 MG CAPSULE.DR PO SCH (20:12)
[2020-12-15] MEDS: SODIUM CHLORIDE 0.9% 1,000 ML IV SCH ×2 (02:45→21:18)
[2020-12-15] MEDS: cloNIDine HCL 0.2 MG TAB PO PRN (02:45)
[2020-12-15] MEDS ORDERED: LORazepam 2 MG/ML INJ IV STA (07:07)
[2020-12-15] MEDS: SYMBICORT 80-4.5 MCG INHALER INHALATION SCH ×2 (07:35→19:57)
[2020-12-15] MEDS: CHOLECALCIFEROL 25 MCG (1000 IU) TABLET PO SCH (08:05)
[2020-12-15] MEDS: DALFAMPRIDINE PO SCH (08:06)
[2020-12-15] MEDS: ASPIRIN 81 MG PO SCH (08:06)
[2020-12-15] MEDS: TICAGRELOR 90 MG TAB PO SCH ×2 (08:06→21:17)
[2020-12-15] MEDS: FERROUS SULFATE 325 MG TAB PO SCH (08:06)
[2020-12-15] MEDS: PANTOPRAZOLE 40 MG TABLET PO SCH (08:06)
[2020-12-15] MEDS: NICOTINE 14MG/24HR PATCH TRANSDERM SCH (08:06)
[2020-12-15] MEDS: DULoxetine HCL 20 MG CAPSULE.DR PO SCH (08:09)
[2020-12-15 09:39] LABS: African American GFR (CKD) 64.1 (60.0-200.0); Anion Gap 12.4 mmol/L (4.00-12.00); BUN/Creat Ratio 13.64 Ratio (12.00-20.00); Calcium 9.2 mg/dL (8.7-10.3); Carbon Dioxide 18.6 mmol/L (21.6-31.8); Non-African American GFR(CKD) 55.3 (60.0-200.0); Potassium 3.2 mmol/L (3.5-5.5)
[2020-12-15] MEDS ORDERED: LORazepam 1 MG TAB PO STA (10:54)
--- NOTE | 2020-12-15 11:55 | P.PN ---
Progress Note - Text Progress Note Date: 12/15/20 Interval History: Patient was seen resting in bed and was directable and agreeable to speak with the greeting card writer. The patient continues to be quite disorganized and confused. She has been noted to be speaking to herself with no one else present in the room. She often requires redirection and needs to be asked questions multiple times before and appropriate answer. She is not reporting any suicidal or homicidal ideation, intention, and/or plan. She is not reporting any auditory or visual hallucinations but appears to be responding to some internal stimuli and appears to be talking to herself when no one else was present in the room. She denies any paranoia or other delusions at this time. The patient did have a seizure approximately 7 AM this morning. She has been adherent with her medications and not reporting any significant side effects. She is alert and oriented to person and place only. Mental Status Exam: General Appearance: Patient appears to be stated age is alert, pleasant, and cooperative. Patient appears to have fair hygiene and grooming wearing hospital gown with fair eye contact. Behavior: Patient is calmly lying in bed without any agitated behavior. Psychomotor activity appears elevated. Speech: Patient's speech is fluent and nonpressured. Difficult to follow. Hyperverbal. Mood/Affect: Patient reports their mood is "I'm alright", affect appears nervous and confused. Suicidality/Homicidality: Patient denies having any suicidal or homicidal ideation intent or plan. Perceptions: The patient is endorsing both auditory and visual hallucinations. Though content/process: There is no evidence of delusional thought content. Thought process appears to be disorganized. Fluctuating cognition. Memory and concentration: Patient is alert and oriented 2. Concentration is grossly poor. The patient is unable to spell "WORLD" backwards. Judgment and insight: Very poor Assessment Altered mental status, likely delirium secondary to toxic metabolic encephalopathy versus polypharmacy - patient has fluctuating cognition and noted lab abnormalities including acute kidney injury - The patient has no significant history of schizophrenia or bipolar disorder. Current presentation and affect are not consistent with these diagnoses. Acute renal failure, improving Abdomen mildly psychosis Multiple sclerosis Cannabis use Plan: -At this time patient DOES NOT meet criteria for inpatient psychiatric admission. -Patient DOES NOT have decision making capacity at this time and is unable to reason through and communicate/appreciate the risks, benefits and alternatives to treatment. -Delirium precautions recommended with patient including - avoiding use of narcotics and VISION REHABILITATION THERAPIST sedatives, limit anticholinergic medications when possible, frequent re-orientation, minimize use of restraints, open window shades during the day and close them at night -Would recommend the following medication changes/additions: Discontinue Cymbalta. Cymbalta may lower seizure threshold and may be at higher levels than intended due to kidney injury. Continue Seroquel 50 mg at bedtime. -Consider limiting patient's [place] and gabapentin upon discharge. -Will continue to follow along
--- NOTE | 2020-12-15 13:06 | P.PN ---
Subjective Progress Note Date: 12/15/20 Patient is still very confused. I heard her talking to herself prior to me walking to the room. She had a seizure episode this morning because by nursing staff around 7 AM. She is redirectable and can answer some questions appropriately. Sometimes she repeat what I say or what the nurse is saying. Objective - Vital Signs Vital signs: Vital Signs Temp 98.6 F 12/15/20 07:31 Pulse 113 H 12/15/20 07:31 Resp 24 12/15/20 07:31 BP 161/92 12/15/20 07:31 Pulse Ox 98 12/15/20 07:31 Intake & Output 12/14/20 12/15/20 12/15/20 18:59 06:59 18:59 Other: Voiding Method Bedside Commode Bedside Commode Diaper # Voids 2 2 - Exam General: The patient is awake and alert, in no distress. There is area of bruising in the chin with a small laceration appeared healing well. Eye: there is normal conjunctiva bilaterally. Neck: The neck is supple, there is no JVD. Cardiovascular: Normal S1-S2, no S3-S4, no murmurs. Respiratory: Lungs clear to auscultation bilaterally Gastrointestinal: Abdomen is soft, nontender Musculoskeletal: There is no pedal edema. Neurological:. Speech is normal. Skin: Skin is warm and dry - Labs CBC & Chem 7: 12/13/20 05:18 12/15/20 05:58 Labs: Abnormal Lab Results - Last 24 Hours (Table) 12/15/20 Range/Units 05:58 Potassium 3.2 L (3.5-5.5) mmol/L Chloride 110 H (96-109) mmol/L Carbon Dioxide 18.6 L (21.6-31.8) mmol/L Anion Gap 12.40 H (4.00-12.00) mmol/L Est GFR (CKD-EPI)NonAf 55.3 L (60.0-200.0) Creatine Kinase 341 H (26-186) U/L Microbiology - Last 24 Hours (Table) 12/13/20 17:26 Blood Culture - Preliminary Blood No Growth after 24 hours 12/12/20 12:45 Blood Culture - Preliminary Blood No Growth after 48 hours 12/12/20 13:00 Blood Culture - Preliminary Blood No Growth after 48 hours Assessment and Plan Assessment: Patient is a 60-year-old female with a past medical history of multiple sclerosis, foot drop who presented to the ER via EMS secondary to confusion. Per EMS report the patient has had recent multiple falls and saw her neurologist yesterday. In the ER she underwent an extensive evaluation. CT head and cervical spine showed no acute osseous abnormality, and no acute intracranial abnormality. Patient was admitted to the hospital for further management of her medical problems noted below. Acute Toxic encephalopathy -Possibly secondary to underlying SANDHYA and rhabdomyolysis -Frequent reorientation -Thyroid function tests, vitamin B12, and folate levels within acceptable range -Patient had a low-grade fever but no evidence of underlying infection. UA, blood culture, and COVID-19 screen all negative -She was seen and evaluated by neurology and psychiatry. Worsening hallucinations -Seen and evaluated by psychiatry. [place] to be attributed to underlying metabolic derangements. No known psych history Seizure episode -Witnessed by nursing staff during this admission -May be attributed to withdrawal. Gabapentin as has been on hold since adm ission. We will resume a lower dose patient on 600 mg 3 times a day at home. I discussed with nephrology resuming 300 mg 3 times a day and continue to monitor. -Patient had a computed tomography scan of the head and an EEG during this admission that were both unremarkable for acute findings Acute kidney injury -Improved significantly with IV fluid hydration. Seen and evaluated by nephrology. -renal ultrasound with cortical thinning Falls with recent head trauma, multiple bruises -CT head and neck without acute process -PT/OT evaluation - social work evaluation Multiple sclerosis -No evidence of exacerbation per neurology. Underlying depression -Cymbalta discontinued by psychiatry as it may increase seizure threshold Coronary artery disease -Continue with aspirin, brillenta, and statin -Beta clem Dyslipidemia -Statin Tobacco abuse -Nicotine replacement COPD without exacerbation -Continue with long-acting beta agonist and inhaled corticosteroid -As needed bronchodilators GERD - PPI Lactic acidosis, resolved anion gap metabolic acidosis, improved DVT prophylaxis: SCDs Discussed with: nursing, patient Anticipated discharge date: 2-[address]: unknown A total of 35 minutes was spent on the care of this complex patient more than 50% of the time was spent in counseling and care coordination.
--- NOTE | 2020-12-15 14:40 | P.PN ---
Subjective Progress Note Date: 12/15/20 Patient appears very delirious, very shaky. Patient actively hallucinating, talking about veered things, states she has cancer, talking to people who were not there. Patient is seeing people behind the TV, on top of the TV. She is apparently conversing to someone she calls as "Kalpesh", who is not there. She has not slept for last 2 days. Patient apparently had a grand mal seizure this morning, that lasted 45 seconds to a minute. Patient was post ictal with combative behavior post ictally. Patient did bite her tongue and lost control of urine. Objective - Vital Signs Vital signs: Vital Signs Temp 98.6 F 12/15/20 07:31 Pulse 113 H 12/15/20 07:31 Resp 24 12/15/20 07:31 BP 161/92 12/15/20 07:31 Pulse Ox 98 12/15/20 07:31 Intake & Output 12/14/20 12/15/20 12/15/20 18:59 06:59 18:59 Other: Voiding Method Bedside Commode Bedside Commode Diaper # Voids 2 2 - Exam Patient continues to be delirious, very shaky, hallucinating, delusional. Decreased eye contact. Patient moves all 4 extremities. Patient has evidence of tongue bite from the seizure. Detailed testing deferred. - Labs CBC & Chem 7: 12/13/20 05:18 12/15/20 05:58 Labs: Abnormal Lab Results - Last 24 Hours (Table) 12/15/20 Range/Units 05:58 Potassium 3.2 L (3.5-5.5) mmol/L Chloride 110 H (96-109) mmol/L Carbon Dioxide 18.6 L (21.6-31.8) mmol/L Anion Gap 12.40 H (4.00-12.00) mmol/L Est GFR (CKD-EPI)NonAf 55.3 L (60.0-200.0) Creatine Kinase 341 H (26-186) U/L Microbiology - Last 24 Hours (Table) 12/13/20 17:26 Blood Culture - Preliminary Blood No Growth after 24 hours 12/12/20 12:45 Blood Culture - Preliminary Blood No Growth after 48 hours 12/12/20 13:00 Blood Culture - Preliminary Blood No Growth after 48 hours Assessment and Plan Assessment: * Altered mental status, probably delirium, probably likely due to toxic metabolic encephalopathy. * Acute renal failure, improving. * Psychoactive medications on background of acute renal insufficiency may be contributing to delirium. * Recurrent falls, syncope, unclear cause. * Rhabdomyolysis, due to recurrent falls * Multiple sclerosis, currently in remission. Her muscle strength is fairly normal. Exam is nonfocal. * Marijuana use. * X tobacco use Plan: * EEG was normal. No epileptiform activity. * Carotid Doppler showed no significant stenosis. Antegrade flow in both vertebral arteries. * B12 624, folate > 24.0, vitamin D 48.6 TSH 0.74 normal, RPR nonreactive. * I do not see any obvious signs of MS exacerbation. I would hold off on corticosteroids, as steroids can make delirium further worse. * Patient's seizure was possibly due to withdrawal from Neurontin. Patient was on very high-dose Neurontin with renal failure. Now that the renal failure has resolved, patient withdrew and possibly had a seizure. Resume Neurontin 300 mg 3 times a day. Patient was given Ativan 1 mg IV to help her sleep. Consider Seroquel 50 mg at bedtime for agitation, delirium, insomnia. * White cells are now normal 8.8, and renal functions almost back to normal. * Medical management as per IM. * Discussed with Dr. Carbajal
[2020-12-15] MEDS: GABAPENTIN 300 MG CAP PO SCH ×2 (16:10→21:17)
[2020-12-15] MEDS: ACETAMINOPHEN TAB 325 MG TAB PO PRN (16:10)
[2020-12-15] MEDS ORDERED: MELATONIN 5 MG TABLET PO SCH (21:00)
[2020-12-15] MEDS ORDERED: QUEtiapine 50 MG TAB PO SCH (21:00)
[2020-12-15] MEDS: ATORVASTATIN 40 MG TAB PO SCH (21:17)
--- NOTE | 2020-12-15 21:53 | PN ---
PROGRESS NOTE Patient is seen for followup for acute kidney injury. She also had mild rhabdomyolysis, which has improved. Serum creatinine significantly improved with creatinine down to 1.1 mg/dL. Patient has been confused and she is delirious, being evaluated by Neurology and Psychiatry. PHYSICAL EXAMINATION: On examination today, blood pressure was 175/88. She did have a T-max of 100.2, heart rate 118 per minute. Examination shows patient is delirious. She is moving all 4 extremities. She appears euvolemic, with no evidence of edema in the lower extremities. Abdomen is soft, nontender. LABS: Sodium 141, potassium 3.2, chloride 110, CO2 18.6, BUN 15, serum creatinine 1.1. ASSESSMENT: 1. Acute kidney injury, prerenal, currently improved. 2. Hypokalemia. Will replace. 3. Mild rhabdomyolysis, now resolved. 4. History of multiple sclerosis. 5. Seizure disorder. Patient had a seizure today. PLAN: Replace potassium. Encourage increased oral intake. Med adjustment as per Psychiatry and Neurology. MMODL / IJN: [id number] /
[2020-12-16 02:29] VITALS: RESP 18
[2020-12-16] MEDS: SYMBICORT 80-4.5 MCG INHALER INHALATION SCH (07:28)
[2020-12-16] MEDS: GABAPENTIN 300 MG CAP PO SCH (08:37)
[2020-12-16] MEDS: FERROUS SULFATE 325 MG TAB PO SCH (08:37)
[2020-12-16] MEDS: PANTOPRAZOLE 40 MG TABLET PO SCH (08:37)
[2020-12-16] MEDS: CHOLECALCIFEROL 25 MCG (1000 IU) TABLET PO SCH (08:37)
[2020-12-16] MEDS: ASPIRIN 81 MG PO SCH (08:38)
[2020-12-16] MEDS: NICOTINE 14MG/24HR PATCH TRANSDERM SCH (08:38)
[2020-12-16] MEDS: TICAGRELOR 90 MG TAB PO SCH (08:38)
[2020-12-16 08:39] VITALS: BP 175/92; PULSE 88; TEMP 98.3
[2020-12-16 09:30] LABS: African American GFR (CKD) 57.7 (60.0-200.0); Anion Gap 7.3 mmol/L (4.00-12.00); BUN/Creat Ratio 11.67 Ratio (12.00-20.00); Calcium 9.2 mg/dL (8.7-10.3); Carbon Dioxide 24.7 mmol/L (21.6-31.8); Non-African American GFR(CKD) 49.8 (60.0-200.0)
--- NOTE | 2020-12-16 09:35 | P.DS ---
Providers Date of admission: 12/12/20 15:07 Expected date of discharge: 12/16/20 Attending physician: Eliane Vergara DO Consults: 12/12/20 14:57 Consult Physician Routine Consulting Provider: Ranulfo Green Consult Reason/Comments: Confusional state, MS exacerbation Do you want consulting provider notified?: Yes 12/12/20 16:22 Consult Physician Routine Consulting Provider: Andi Scott Consult Reason/Comments: [place] I Do you want consulting provider notified?: Yes 12/14/20 10:21 Consult Physician Routine Consulting Provider: Florencio Limon Consult Reason/Comments: hallucinations and confusion Do you want consulting provider notified?: Yes Primary care physician: [place] Hospital Course: Patient is a 60-year-old female with a past medical history of multiple sclerosis, foot drop who presented to the ER via EMS secondary to confusion. Per EMS report the patient has had recent multiple falls and saw her neurologist yesterday. In the ER she underwent an extensive evaluation. CT head and cervical spine showed no acute osseous abnormality, and no acute intracranial abnormality. Patient was admitted to the hospital for further management of her medical problems noted below. Acute Toxic encephalopathy -Now resolved and mental status back to baseline -Possibly secondary to underlying SANDHYA and rhabdomyolysis -Thyroid function tests, vitamin B12, and folate levels within acceptable range -Patient had a low-grade fever but no evidence of underlying infection. UA, blood culture, and COVID-19 screen all negative -She was seen and evaluated by neurology and psychiatry. Seizure episode -Witnessed by nursing staff during this admission -May be attributed to gabapentin withdrawal. Gabapentin as has been on hold since admission. We will resume a lower dose. patient on 600 mg 3 times a day at home. I discussed with neurology resuming 300 mg 3 times a day and continue to monitor. -Patient had a computed tomography scan of the head and an EEG during this admission that were both unremarkable for acute findings Acute kidney injury, creatinine back to normal -Improved significantly with IV fluid hydration. Seen and evaluated by nephrology. -renal ultrasound with cortical thinning [place] with recent head trauma, multiple bruises -CT head and neck without acute process -PT/OT evaluation -Home care set up for patient Multiple sclerosis -No evidence of exacerbation per neurology. -Dalfampridine discontinued by neurology because of seizure episode. -Continue Aubagio -Patient was directed to follow up with her neurologist early next week Underlying depression -Cymbalta discontinued by psychiatry as it may increase seizure threshold Coronary artery disease -Continue with aspirin, brillenta, and statin -Beta clem Dyslipidemia -Statin COPD without exacerbation GERD - PPI Patient will be discharged home in a stable condition. For further details about this hospitalization please refer to the electronic chart. Patient Condition at Discharge: Stable Plan - Discharge Summary Discharge Rx Participant: No New Discharge Prescriptions: New QUEtiapine [SEROquel] 50 mg PO HS #30 tab Gabapentin [Neurontin] 300 mg PO TID #90 cap Continue Cholecalciferol [Vitamin D3 (25 Mcg = 1000 Iu)] 50 mcg PO DAILY Aspirin EC [Ecotrin Low Dose] 81 mg PO DAILY Metoprolol Tartrate [Lopressor] 25 mg PO BID Teriflunomide [Aubagio] 14 mg PO DAILY Atorvastatin [Lipitor] 40 mg PO DAILY Omeprazole 20 mg PO DAILY Ferrous Sulfate [Iron (65 MG Elemental)] 325 mg PO DAILY HYDROcodone/APAP 10-325MG [[place] 10-325] 1 tab PO BID Ticagrelor [Brilinta] 90 mg PO BID Fluticasone/Vilanterol [Breo Ellipta 100-25 Mcg Inhaler] 1 puff INHALATION RT-BID Discontinued QUEtiapine FUMARATE [SEROquel] 25 mg PO HS Dalfampridine [Dalfampridine ER] 10 mg PO Q12H DULoxetine HCL [Cymbalta] 30 mg PO BID Baclofen [Lioresal] 20 mg PO TID Gabapentin 600 mg PO TID Discharge Medication List Aspirin EC [Ecotrin Low Dose] 81 mg PO DAILY 12/12/20 [History] Atorvastatin [Lipitor] 40 mg PO DAILY 12/12/20 [History] Cholecalciferol [Vitamin D3 (25 Mcg = 1000 Iu)] 50 mcg PO DAILY 12/12/20 [History] Ferrous Sulfate [Iron (65 MG Elemental)] 325 mg PO DAILY 12/12/20 [History] Fluticasone/Vilanterol [Breo Ellipta 100-25 Mcg Inhaler] 1 puff INHALATION RT- BID 12/12/20 [History] HYDROcodone/APAP 10-325MG [[place] 10-325] 1 tab PO BID 12/12/20 [History] Metoprolol Tartrate [Lopressor] 25 mg PO BID 12/12/20 [History] Omeprazole 20 mg PO DAILY 12/12/20 [History] Teriflunomide [Aubagio] 14 mg PO DAILY 12/12/20 [History] Ticagrelor [Brilinta] 90 mg PO BID 12/12/20 [History] Gabapentin [Neurontin] 300 mg PO TID #90 cap 12/16/20 [Rx] QUEtiapine [SEROquel] 50 mg PO HS #30 tab 12/16/20 [Rx] Follow up Appointment(s)/Referral(s): [facility], [NON-STAFF] - 1-2 Days None,Stated [REFERRING] - 1-2 days Discharge Disposition: HOME WITH HOME HEALTH SERVICES
--- NOTE | 2020-12-16 14:01 | P.PN ---
Subjective Progress Note Date: 12/16/20 Patient was seen for a follow-up. Patient is doing much better. Her delirium has much improved. Still slightly shaky, hyperverbal, but much improved than yesterday. No more hallucinations. No further seizures. Objective - Vital Signs Vital signs: Vital Signs Temp 98.3 F 12/16/20 07:20 Pulse 88 12/16/20 07:20 Resp 18 12/16/20 07:20 BP 175/92 12/16/20 07:20 Pulse Ox 100 12/16/20 07:20 Intake & Output 12/15/20 12/16/20 12/16/20 18:59 06:59 18:59 Intake Total 250 Output Total 1 1 1 Balance -1 249 -1 Intake: Oral 250 Output: Stool 1 1 1 Other: Voiding Method Bedside Commode Diaper Diaper # Voids 3 2 1 # Bowel Movements 1 - Exam Patient is much more alert and awake. Speech and language functions are normal. No hallucinations. Cranial nerves are normal. Muscle strength normal. She still has evidence of a significant bruise in the left side of the tongue from seizure. - Labs CBC & Chem 7: 12/13/20 05:18 12/16/20 05:34 Labs: Abnormal Lab Results - Last 24 Hours (Table) 12/16/20 Range/Units 05:34 Chloride 111 H (96-109) mmol/L Est GFR (CKD-EPI)AfAm 57.7 L (60.0-200.0) Est GFR (CKD-EPI)NonAf 49.8 L (60.0-200.0) BUN/Creatinine Ratio 11.67 L (12.00-20.00) Ratio Microbiology - Last 24 Hours (Table) 12/13/20 17:26 Blood Culture - Preliminary Blood No Growth after 48 hours 12/12/20 12:45 Blood Culture - Preliminary Blood No Growth after 72 hours 12/12/20 13:00 Blood Culture - Preliminary Blood No Growth after 72 hours Assessment and Plan Assessment: * Altered mental status, probably delirium, probably likely due to toxic metabolic encephalopathy. * Seizure, probably from opiate/Neurontin withdrawal. * Acute renal failure, resolved. * Recurrent falls, syncope, unclear cause. * Rhabdomyolysis, due to recurrent falls * Multiple sclerosis, currently in remission. Her muscle strength is fairly normal. Exam is nonfocal. * Marijuana use. * X tobacco use Plan: * Patient was recommended to stop Ampyra because of her recent seizure and recent renal insufficiency. * It was reported by the family that patient was taking excessive amount of opiates as well. She was given 60 pills of [place] on 11/25/2020, and she has finished almost all in 18 days.. * EEG was normal. No epileptiform activity. * Carotid Doppler showed no significant stenosis. Antegrade flow in both vertebral arteries. * B12 624, folate > 24.0, vitamin D 48.6 TSH 0.74 normal, RPR nonreactive. * No evidence of MS exacerbation. I would hold off on corticosteroids, as steroids can make delirium further worse. * Patient's seizure was possibly due to withdrawal from Neurontin. Patient was on very high-dose Neurontin with renal failure. Now that the renal failure has resolved, patient withdrew and possibly had a seizure. Resume Neurontin 300 mg 3 times a day. Patient was given Ativan 1 mg IV to help her sleep. Consider Seroquel 50 mg at bedtime for agitation, delirium, insomnia. * White cells are now normal 8.8, and renal functions almost back to normal. * Neurologically clear for discharge.
--- NOTE | 2020-12-16 17:35 | PN ---
PROGRESS NOTE Patient is seen for followup for acute kidney injury, mostly prerenal and associated with some degree of rhabdomyolysis. Patient is status post IV fluids. She had significant change in her mentation with delirium. She also had a seizure in the hospital. Neurology and Psychiatry have been following her. Serum creatinine has improved significantly, with creatinine down to 1.2 and 1.1 from admission creatinine of 2.86. This morning it appears that mentation is back to normal, and patient is being discharged. She denies any significant complaints. PHYSICAL EXAMINATION: Blood pressure was 113/75. Later in the morning it was 175/92, heart rate 88 per minute. Patient is afebrile. Examination shows she is euvolemic with no evidence of edema in the lower extremities. 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 LABS: Sodium of 143, potassium 4.0, BUN 14, serum creatinine 1.2. ASSESSMENT: 1. Acute kidney injury, prerenal, currently resolved. 2. Hypokalemia, status post replacement. 3. Mental status changes. Delusion, now resolved, possibly related to medications. PLAN: Repeat labs as outpatient. Continue to avoid nephrotoxic agents. MMODL / IJN: [id number] /
== END 2020-12-16 12:25 | disposition home health service (06) | DRG 557 ==
LOC: EC 09:45 → EDBD 09:45 → OBSVTOIN 15:07 → 6NMEDSUR 15:07 → 4SSUR 15:23 → 6NMEDSUR 18:14
PROVIDERS: ADMIT Internal Medicine; ATTEND Internal Medicine
DX: M62.82 Rhabdomyolysis (principal); G92 Toxic encephalopathy; F19.239 Other psychoactive substance dependence with withdrawal, unspecified; N17.9 Acute kidney failure, unspecified; E87.2 Acidosis; F05 Delirium due to known physiological condition; M79.7 Fibromyalgia; I25.10 Atherosclerotic heart disease of native coronary artery without angina pectoris; J44.9 Chronic obstructive pulmonary disease, unspecified; K21.9 Gastro-esophageal reflux disease without esophagitis; R29.6 Repeated falls; R62.7 Adult failure to thrive; Z20.822 Contact with and (suspected) exposure to COVID-19; Z79.02 Long term (current) use of antithrombotics/antiplatelets; Z79.82 Long term (current) use of aspirin; E78.5 Hyperlipidemia, unspecified; E86.0 Dehydration; E87.6 Hypokalemia; F17.210 Nicotine dependence, cigarettes, uncomplicated; F32.9 Major depressive disorder, single episode, unspecified; G35 Multiple sclerosis; G40.409 Other generalized epilepsy and epileptic syndromes, not intractable, without status epilepticus; Z79.899 Other long term (current) drug therapy; Z82.5 Family history of asthma and other chronic lower respiratory diseases; Z87.440 Personal history of urinary (tract) infections; Z91.81 History of falling; Z98.1 Arthrodesis status; S00.83XA Contusion of other part of head, initial encounter; M21.379 Foot drop, unspecified foot; Z91.040 Latex allergy status; Z79.891 Long term (current) use of opiate analgesic; Z95.5 Presence of coronary angioplasty implant and graft; Z82.3 Family history of stroke; Z80.9 Family history of malignant neoplasm, unspecified
CPT/HCPCS: 36415; 70450; 71045; 72125; 76770; 80048; 80053; 80306; 80320; 81001; 82140; 82306; 82550; 82607; 82746; 83605; 83735; 84100; 84439; 84443; 84484; 85025; 85610; 85730; 86780; 87040; 87635; 93005; 93880; 94640; 95816; 99285

== ENCOUNTER → 2021-02-08 | Outpatient (CLI) | payer MEDICARE, OTHER ==
--- NOTE | 2021-02-09 07:34 | US ---
EXAMINATION TYPE: US kidneys/renal and bladder DATE OF EXAM: 02/08/2021 COMPARISON: NONE CLINICAL HISTORY: N18.4 kidney disease stage 4. EXAM MEASUREMENTS: Right Kidney: 7.7 x 3.8 x 4.1 cm Left Kidney: 8.0 x 4.4 x 4.5 cm Right Kidney: No hydronephrosis or masses seen, atrophied, somewhat limited visualization due to over lying bowel gas Left Kidney: No hydronephrosis or masses seen, atrophied, somewhat limited visualization due to overl josselin bowel gas Bladder: wnl There is no evidence for hydronephrosis at this point in time. No nephrolithiasis is seen. The uri nary bladder is anechoic. Bilateral ureteral jets are seen. IMPRESSION: No evidence of hydronephrosis or shadowing renal calculi. Bilateral small atrophic kidneys. This corresponds to medical renal disease.
== END | disposition home or self-care (01) ==
LOC: RADUSWWP 15:55
PROVIDERS: ATTEND Family Medicine
DX: N26.1 Atrophy of kidney (terminal) (principal); N28.89 Other specified disorders of kidney and ureter
CPT/HCPCS: 76770

== ENCOUNTER 2021-03-22 20:09 | Inpatient (IN) | payer MEDICARE, OTHER ==
[2021-03-22] MEDS ORDERED: SODIUM CHLORIDE 0.9% 1,000 ML IV STA (20:40)
[2021-03-22] MEDS ORDERED: ACETAMINOPHEN TAB 500 MG TAB PO STA (20:41)
[2021-03-22] MEDS ORDERED: ONDANSETRON 4 MG/2 ML VIAL IVP STA (21:01)
[2021-03-22 21:09] LABS: Basophils # (A) 0.1 k/uL (0-0.2); Basophils % (A) 0 %; Eosinophils # (A) 0.1 k/uL (0-0.7); Eosinophils % (A) 1 %; HCT 36.6 % (34.0-46.0); HGB 12.2 gm/dL (11.4-16.0); Lymphocytes # (A) 0.9 k/uL (1.0-4.8); Lymphocytes % (A) 8 %; MCH 31.6 pg (25.0-35.0); MCHC 33.3 g/dL (31.0-37.0); MCV 94.8 fL (80.0-100.0); Mean Platelet Volume 8.1; Monocytes # (A) 0.9 k/uL (0-1.0); Monocytes % (A) 8 %; Neutrophils # (A) 8.9 k/uL (1.3-7.7); Neutrophils % (A) 81 %; Platelet Count 184 k/uL (150-450); RBC 3.86 m/uL (3.80-5.40); RDW 13.8 % (11.5-15.5)
[2021-03-22 21:18] LABS: Albumin 4.1 g/dL (3.5-5.0); Calcium 9.3 mg/dL (8.4-10.2); Potassium 4.3 mmol/L (3.5-5.1); Total Bilirubin 0.8 mg/dL (0.2-1.3); Total Protein 6.6 g/dL (6.3-8.2)
[2021-03-22 21:28] LABS: Appearance,Urine Cloudy (Clear); Bacteria,Urine Moderate /hpf; Bilirubin,Urine Negative (Negative); Blood,Urine Negative (Negative); Color,Urine Yellow; Glucose,Urine (UA) Negative (Negative); Ketones,Urine Negative (Negative); Leukocyte Esterase,Urine Large (Negative); Mucus,Urine Rare /hpf; Nitrite,Urine Positive (Negative); PH, Urine 5.5 (5.0-8.0); Protein,Urine 1+ (Negative); RBC,Urine 8 /hpf (0-5); Specific Gravity,Urine 1.017 (1.001-1.035); Squamous Epithelial Cell,Urine 10 /hpf (0-4); Urobilinogen,Urine <2.0 mg/dL (<2.0); WBC,Urine 50 /hpf (0-5)
--- NOTE | 2021-03-22 21:58 | CT ---
EXAMINATION TYPE: CT abdomen pelvis wo con DATE OF EXAM: 03/22/2021 COMPARISON: None available. HISTORY: Fever, chills, abdominal pain. CT DLP: 527.1 mGycm Automated exposure control for dose reduction was used. TECHNIQUE: Helical acquisition of images was performed from the lung bases through the pelvis. FINDINGS: LUNG BASES: No significant abnormality is appreciated. LIVER/GB: No significant abnormality is appreciated. PANCREAS: No significant abnormality is seen. SPLEEN: No significant abnormality is seen. ADRENALS: No significant abnormality is seen. KIDNEYS: No acute abnormality is seen. A few punctate nonobstructing bilateral renal calculi versus a therosclerotic calcifications. FREE AIR: No free air is visualized RETROPERITONEAL ADENOPATHY: None visualized REPRODUCTIVE ORGANS: No significant abnormality is seen URINARY BLADDER: No significant abnormality is seen. PELVIC ADENOPATHY: None visualized. OSSEOUS STRUCTURES: No acute abnormality is seen. L3-S1 fusion seen. BOWEL: Mild fat stranding involving the proximal descending/splenic flexure colon. No significant fr ee air, bowel obstruction or free fluid. OTHER: Dystrophic calcification in the region of the vesicouterine pouch seen. IMPRESSION: FINDINGS OF ACUTE COLONIC DIVERTICULITIS INVOLVING THE PROXIMAL DESCENDING COLON. NO EVIDENCE OF COMP LICATION. Recommend follow-up and exclude other etiologies. Chronic and incidental findings as above.
[2021-03-22] MEDS ORDERED: PIPERACILLIN-TAZOBACTAM 3.375 GM in SODIUM CHLORIDE 0.9% 100 ML IVPB STA (22:03)
[2021-03-22] MEDS ORDERED: NALOXONE 0.4 MG/ML 1 ML VIAL IV PRN (22:18)
[2021-03-22] MEDS ORDERED: ONDANSETRON 4 MG/2 ML VIAL IVP PRN (22:18)
--- NOTE | 2021-03-22 22:18 | ED ---
Abdominal Pain HPI - General Chief Complaint: Abdominal Pain Stated Complaint: ABD pain Time Seen by Provider: 03/22/21 20:39 Source: patient, RN notes reviewed Mode of arrival: ambulatory Limitations: no limitations - History of Present Illness Initial Comments: 60-year-old female presents emergency Department chief complaint of fever, chills, abdominal pain. Patient states that she has not felt well over the last day or 2. Patient states she had shaking chills. Patient states she's had normal bowel movements no significant history of urinary frequency associated nausea without vomiting. Patient has not taken any recent Tylenol Motrin. She states pain is diffuse in her abdomen physician lower portion. No chest pain no cough or cold-like symptoms. - Related Data Home Medications Medication Instructions Recorded Confirmed Aspirin EC [Ecotrin Low Dose] 81 mg PO DAILY 12/12/20 12/12/20 Atorvastatin [Lipitor] 40 mg PO DAILY 12/12/20 12/12/20 Cholecalciferol [Vitamin D3 (25 50 mcg PO DAILY 12/12/20 12/12/20 Mcg = 1000 Iu)] Ferrous Sulfate [Iron (65 MG 325 mg PO DAILY 12/12/20 12/12/20 Elemental)] Fluticasone/Vilanterol [Breo 1 puff INHALATION RT-BID 12/12/20 12/12/20 Ellipta 100-25 Mcg Inhaler] HYDROcodone/APAP 10-325MG [[place] 1 tab PO BID 12/12/20 12/12/20 10-325] Metoprolol Tartrate [Lopressor] 25 mg PO BID 12/12/20 12/12/20 Omeprazole 20 mg PO DAILY 12/12/20 12/12/20 Teriflunomide [Aubagio] 14 mg PO DAILY 12/12/20 12/12/20 Ticagrelor [Brilinta] 90 mg PO BID 12/12/20 12/12/20 Previous Rx's Medication Instructions Recorded Gabapentin [Neurontin] 300 mg PO TID #90 cap 12/16/20 QUEtiapine [SEROquel] 50 mg PO HS #30 tab 12/16/20 Allergies Allergy/AdvReac Type Severity Reaction Status Date / Time No Known Allergies Allergy Verified 03/22/21 22:16 Review of Systems ROS Statement: Those systems with pertinent positive or pertinent negative responses have been documented in the HPI. ROS Other: All systems not noted in ROS Statement are negative. Past Medical History Past Medical History: Unable to Obtain Additional Past Medical History / Comment(s): Drop foot, Multiple sclerosis, Hx of falls, Hx of UTI, Depression and anxiety, HLD, DC with stent Apr 2019, COPD, anemia, GERD, Fibromyalgia, neuropathy History of Any Multi-Drug Resistant Organisms: None Reported Past Surgical History: Unable to Obtain Additional Past Surgical History / Comment(s): cardiac cath, Hx of back fusion that failed and required multiple surgeries Past Anesthesia/Blood Transfusion Reactions: No Reported Reaction Past Psychological History: No Psychological Hx Reported Smoking Status: Current every day smoker Past Alcohol Use History: Rare Past Drug Use History: None Reported - Past Family History Mother Family Medical History: No Reported History Father Family Medical History: Cancer, CVA/TIA, Memory Impairment Additional Family Medical History / Comment(s): COPD and asbestosis, PAD General Exam Limitations: no limitations General appearance: alert, in no apparent distress Head exam: Present: atraumatic, normocephalic, normal inspection Neck exam: Present: normal inspection. Absent: tenderness, meningismus, lymphadenopathy Respiratory exam: Present: normal lung sounds bilaterally. Absent: respiratory distress, wheezes, rales, rhonchi, stridor Cardiovascular Exam: Present: regular rate, normal rhythm, normal heart sounds. Absent: systolic murmur, diastolic murmur, rubs, gallop, clicks GI/Abdominal exam: Present: soft, normal bowel sounds. Absent: distended, tenderness, guarding, rebound, rigid Back exam: Absent: CVA tenderness (R), CVA tenderness (L) Course Vital Signs 03/22/21 20:13 Temperature 102.0 F H Pulse Rate 92 Respiratory 16 Rate Blood Pressure 102/62 O2 Sat by Pulse 98 Oximetry Medical Decision Making - Medical Decision Making Patient's EKG shows evidence diverticulitis, patient has evidence urinary tract infection acute kidney injury. Patient be admitted for IV fluid hydration, IV antibiotics blood culture culture, urine culture. - Lab Data Result diagrams: 03/22/21 20:57 03/22/21 20:57 Lab Results 03/22/21 03/22/21 03/22/21 Range/Units 20:57 20:57 20:57 WBC 11.0 H (3.8-10.6) k/uL RBC 3.86 (3.80-5.40) m/uL Hgb 12.2 (11.4-16.0) gm/dL Hct 36.6 (34.0-46.0) % MCV 94.8 (80.0-100.0) fL MCH 31.6 (25.0-35.0) pg MCHC 33.3 (31.0-37.0) g/dL RDW 13.8 (11.5-15.5) % Plt Count 184 (150-450) k/uL MPV 8.1 Neutrophils % 81 % Lymphocytes % 8 % Monocytes % 8 % Eosinophils % 1 % Basophils % 0 % Neutrophils # 8.9 H (1.3-7.7) k/uL Lymphocytes # 0.9 L (1.0-4.8) k/uL Monocytes # 0.9 (0-1.0) k/uL Eosinophils # 0.1 (0-0.7) k/uL Basophils # 0.1 (0-0.2) k/uL Sodium 133 L (137-145) mmol/L Potassium 4.3 (3.5-5.1) mmol/L Chloride 101 (98-107) mmol/L Carbon Dioxide 24 (22-30) mmol/L Anion Gap 8 mmol/L BUN 27 H (7-17) mg/dL Creatinine 1.75 H (0.52-1.04) mg/dL Est GFR (CKD-EPI)AfAm 36 (>60 ml/min/1.73 sqM) Est GFR (CKD-EPI)NonAf 32 (>60 ml/min/1.73 sqM) Glucose 113 H (74-99) mg/dL Plasma Lactic Acid Jeremías (0.7-2.0) mmol/L Calcium 9.3 (8.4-10.2) mg/dL Total Bilirubin 0.8 (0.2-1.3) mg/dL AST 114 H (14-36) U/L ALT 63 H (4-34) U/L Alkaline Phosphatase 192 H (38-126) U/L Total Protein 6.6 (6.3-8.2) g/dL Albumin 4.1 (3.5-5.0) g/dL Amylase 58 (30-110) U/L Lipase 54 (23-300) U/L Urine Color Yellow Urine Appearance Cloudy H (Clear) Urine pH 5.5 (5.0-8.0) Ur Specific Carter 1.017 (1.001-1.035) Urine Protein 1+ H (Negative) Urine Glucose (UA) Negative (Negative) Urine Ketones Negative (Negative) Urine Blood Negative (Negative) Urine Nitrite Positive H (Negative) Urine Bilirubin Negative (Negative) Urine Urobilinogen <2.0 (<2.0) mg/dL Ur Leukocyte Esterase Large H (Negative) Urine RBC 8 H (0-5) /hpf Urine WBC 50 H (0-5) /hpf Ur Squamous Epith Cells 10 H (0-4) /hpf Urine Bacteria Moderate H (None) /hpf Urine Mucus Rare H (None) /hpf 03/22/21 Range/Units 20:57 WBC (3.8-10.6) k/uL RBC (3.80-5.40) m/uL Hgb (11.4-16.0) gm/dL Hct (34.0-46.0) % MCV (80.0-100.0) fL MCH (25.0-35.0) pg MCHC (31.0-37.0) g/dL RDW (11.5-15.5) % Plt Count (150-450) k/uL MPV Neutrophils % % Lymphocytes % % Monocytes % % Eosinophils % % Basophils % % Neutrophils # (1.3-7.7) k/uL Lymphocytes # (1.0-4.8) k/uL Monocytes # (0-1.0) k/uL Eosinophils # (0-0.7) k/uL Basophils # (0-0.2) k/uL Sodium (137-145) mmol/L Potassium (3.5-5.1) mmol/L Chloride (98-107) mmol/L Carbon Dioxide (22-30) mmol/L Anion Gap mmol/L BUN (7-17) mg/dL Creatinine (0.52-1.04) mg/dL Est GFR (CKD-EPI)AfAm (>60 ml/min/1.73 sqM) Est GFR (CKD-EPI)NonAf (>60 ml/min/1.73 sqM) Glucose (74-99) mg/dL Plasma Lactic Acid Jeremías 0.9 (0.7-2.0) mmol/L Calcium (8.4-10.2) mg/dL Total Bilirubin (0.2-1.3) mg/dL AST (14-36) U/L ALT (4-34) U/L Alkaline Phosphatase (38-126) U/L Total Protein (6.3-8.2) g/dL Albumin (3.5-5.0) g/dL Amylase (30-110) U/L Lipase (23-300) U/L Urine Color Urine Appearance (Clear) Urine pH (5.0-8.0) Ur Specific Carter (1.001-1.035) Urine Protein (Negative) Urine Glucose (UA) (Negative) Urine Ketones (Negative) Urine Blood (Negative) Urine Nitrite (Negative) Urine Bilirubin (Negative) Urine Urobilinogen (<2.0) mg/dL Ur Leukocyte Esterase (Negative) Urine RBC (0-5) /hpf Urine WBC (0-5) /hpf Ur Squamous Epith Cells (0-4) /hpf Urine Bacteria (None) /hpf Urine Mucus (None) /hpf Disposition Clinical Impression: Dehydration, Acute kidney injury, Diverticulitis, UTI (urinary tract infection) Disposition: ADMITTED IP TO THIS [facility] Condition: Fair Referrals: Khoi Rey MD [Primary Care Provider] - 1-2 days
[2021-03-22] MEDS: SODIUM CHLORIDE 0.9% 1,000 ML IV SCH (23:45)
[2021-03-23] MEDS: PIPERACILLIN-TAZOBACTAM 3.375 GM in SODIUM CHLORIDE 0.9% 100 ML IVPB SCH ×2 (05:10→14:35)
[2021-03-23] MEDS: ACETAMINOPHEN TAB 325 MG TAB PO PRN ×2 (08:41→15:44)
[2021-03-23] MEDS: HYDROcodone/APAP 5-325MG 1 EACH TAB PO PRN (08:43)
[2021-03-23] MEDS ORDERED: LIDOCAINE 2% GEL 30 ML TUBE TOPICAL PRN (09:24)
[2021-03-23] MEDS ORDERED: SODIUM CHLORIDE 0.9% 1,000 ML IV ONE ×2 (09:31→09:32)
[2021-03-23] MEDS: GABAPENTIN 300 MG CAP PO SCH ×2 (11:59→17:34)
[2021-03-23] MEDS: SODIUM CHLORIDE 0.9% 1,000 ML IV SCH (12:00)
--- NOTE | 2021-03-23 15:18 | P.HPIM ---
History of Present Illness Patient is a 60-year-old pleasant female came in with complaints of fever chills and diffuse abdominal pain which was moderate severity yesterday presently no much abdominal pain at this time. Patient denied any diarrhea denied any vomiting but he had some nausea. Patient denied any dysuria flulike symptoms. Patient denied any cough. 2 urine is minimally abnormal patient had a CT of the abdomen which showed diverticulitis. Patient is admitted with initiation of antibiotics in the form of Zosyn. Patient also found to have a elevated creatinine of 1.75 which is elevated from her baseline of 1.2. Patient blood pressure is also low. REVIEW OF SYSTEMS: CONSTITUTIONAL: No fever, no malaise, no fatigue. HEENT: No recent visual problems or hearing problems. Denied any sore throat. CARDIOVASCULAR: No chest pain, orthopnea, PND, no palpitations, no syncope. PULMONARY: No shortness of breath, no cough, no hemoptysis. GASTROINTESTINAL: No diarrhea,. NEUROLOGICAL: No headaches, no weakness, no numbness. HEMATOLOGICAL: Denies any bleeding or petechiae. GENITOURINARY: Denies any burning micturition, frequency, or urgency. MUSCULOSKELETAL/RHEUMATOLOGICAL: Denies any joint pain, swelling, or any muscle pain. ENDOCRINE: Denies any polyuria or polydipsia. The rest of the 14-point review of systems is negative. PHYSICAL EXAMINATION: GENERAL: The patient is alert and oriented x3, not in any acute distress. Well developed, well nourished. HEENT: Pupils are round and equally reacting to light. EOMI. No scleral icterus. No conjunctival pallor. Normocephalic, atraumatic. No pharyngeal erythema. No thyromegaly. CARDIOVASCULAR: S1 and S2 present. No murmurs, rubs, or gallops. PULMONARY: Chest is clear to auscultation, no wheezing or crackles. ABDOMEN: Soft, nontender, nondistended, normoactive bowel sounds. No palpable organomegaly. MUSCULOSKELETAL: No joint swelling or deformity. EXTREMITIES: No cyanosis, clubbing, or pedal edema. NEUROLOGICAL: Gross neurological examination did not reveal any focal deficits. SKIN: No rashes. Assessment and plan -Sepsis: Most probably secondary to diverticulitis patient will be continued on Zosyn at this time. Can you with IV fluids -Hypertension probably secondary to sepsis. Holding antihypertensive medications and patient is being continued on IV fluids -Mild acute renal failure prerenal azotemia from hypotension and possibility of mild acute tubular necrosis, continue with IV fluids as mentioned above - DVT prophylaxis: Subcutaneous heparin Past Medical History Past Medical History: Unable to Obtain, Musculoskeletal Disorder Additional Past Medical History / Comment(s): Drop foot, Multiple sclerosis, Hx of falls, Hx of UTI, Depression and anxiety, HLD, DC with stent Apr 2019, COPD, anemia, GERD, Fibromyalgia, neuropathy History of Any Multi-Drug Resistant Organisms: None Reported Past Surgical History: Unable to Obtain Additional Past Surgical History / Comment(s): cardiac cath, Hx of back fusion that failed and required multiple surgeries Past Anesthesia/Blood Transfusion Reactions: No Reported Reaction Past Psychological History: No Psychological Hx Reported Smoking Status: Former smoker Past Alcohol Use History: Rare Past Drug Use History: None Reported Additional Drug Use History / Comment(s): + THC - Past Family History Mother Family Medical History: No Reported History Father Family Medical History: Cancer, CVA/TIA, Memory Impairment Additional Family Medical History / Comment(s): COPD and asbestosis, PAD Medications and Allergies Home Medications Medication Instructions Recorded Confirmed Type Aspirin EC [Ecotrin Low Dose] 81 mg PO DAILY 12/12/20 03/22/21 History Atorvastatin [Lipitor] 40 mg PO HS 12/12/20 03/22/21 History Cholecalciferol [Vitamin D3 (25 50 mcg PO DAILY 12/12/20 03/22/21 History Mcg = 1000 Iu)] Ferrous Sulfate [Iron (65 MG 325 mg PO DAILY 12/12/20 03/22/21 History Elemental)] Fluticasone/Vilanterol [Breo 1 puff INHALATION RT-BID 12/12/20 03/22/21 History Ellipta 100-25 Mcg Inhaler] Metoprolol Tartrate [Lopressor] 25 mg PO AC-BID 12/12/20 03/22/21 History Omeprazole 20 mg PO HS 12/12/20 03/22/21 History Teriflunomide [Aubagio] 14 mg PO DAILY 12/12/20 03/22/21 History QUEtiapine [SEROquel] 50 mg PO HS #30 tab 12/16/20 03/22/21 Rx Clopidogrel [Plavix] 75 mg PO DAILY 03/22/21 03/22/21 History Gabapentin [Neurontin] 300 mg PO AC-TID 03/22/21 03/22/21 History Lidocaine 5% Oint [Xylocaine 5% 1 applic TOPICAL DAILY PRN 03/22/21 03/22/21 History Oint] Losartan [Cozaar] 50 mg PO DAILY 03/22/21 03/22/21 History methocarbamoL [Robaxin] 250 - 500 mg PO DAILY 03/22/21 03/22/21 History methocarbamoL [Robaxin] 500 mg PO HS 03/22/21 03/22/21 History Allergies Allergy/AdvReac Type Severity Reaction Status Date / Time No Known Allergies Allergy Verified 03/22/21 22:16 Physical Exam Vitals: Vital Signs Temp Pulse Pulse Resp BP BP BP 03/23/21 14:00 98.9 F 80 16 108/69 03/23/21 11:14 78/43 03/23/21 09:48 98.9 F 03/23/21 08:00 100.8 F H 94 16 95/59 03/23/21 01:50 98.1 F 76 101/65 03/22/21 23:43 99.7 F H 73 18 93/47 03/22/21 20:13 102.0 F H 92 16 102/62 Pulse Ox 03/23/21 14:00 99 03/23/21 11:14 03/23/21 09:48 03/23/21 08:00 94 L 03/23/21 01:50 96 03/22/21 23:43 100 03/22/21 20:13 98 Intake and Output 03/23/21 03/23/21 03/23/21 06:59 14:59 22:59 Other: # Voids 1 Weight 68.039 kg Results CBC & Chem 7: 03/22/21 20:57 03/22/21 20:57 Labs: Abnormal Lab Results - Last 24 Hours (Table) 03/22/21 03/22/21 03/22/21 Range/Units 20:57 20:57 20:57 WBC 11.0 H (3.8-10.6) k/uL Neutrophils # 8.9 H (1.3-7.7) k/uL Lymphocytes # 0.9 L (1.0-4.8) k/uL Sodium 133 L (137-145) mmol/L BUN 27 H (7-17) mg/dL Creatinine 1.75 H (0.52-1.04) mg/dL Glucose 113 H (74-99) mg/dL AST 114 H (14-36) U/L ALT 63 H (4-34) U/L Alkaline Phosphatase 192 H (38-126) U/L Urine Appearance Cloudy H (Clear) Urine Protein 1+ H (Negative) Urine Nitrite Positive H (Negative) Ur Leukocyte Esterase Large H (Negative) Urine RBC 8 H (0-5) /hpf Urine WBC 50 H (0-5) /hpf Ur Squamous Epith Cells 10 H (0-4) /hpf Urine Bacteria Moderate H (None) /hpf Urine Mucus Rare H (None) /hpf Microbiology - Last 24 Hours (Table) 03/22/21 20:57 Urine Culture - Preliminary Urine,Voided Thrombosis Risk Factor Assmnt - Choose All That Apply Each Factor Represents 1 point: Abnormal pulmonary function (COPD), Age 41-60 years Thrombosis Risk Factor Assessment Total Risk Factor Score: 2 Thrombosis Risk Factor Assessment Level: Low Risk
[2021-03-23] MEDS: METOPROLOL TARTRATE 25 MG TAB PO SCH (17:34)
[2021-03-23] MEDS: SYMBICORT 80-4.5 MCG INHALER INHALATION SCH (20:00)
[2021-03-23] MEDS: BUDESONIDE 0.5 MG/2 ML NEBU INHALATION SCH (20:01)
[2021-03-23] MEDS: PANTOPRAZOLE 40 MG TABLET PO SCH (20:48)
[2021-03-23] MEDS: QUEtiapine 50 MG TAB PO SCH (20:48)
[2021-03-23] MEDS: ATORVASTATIN 40 MG TAB PO SCH (20:48)
[2021-03-23] MEDS: MEROPENEM 1 GM in SODIUM CHLORIDE 0.9% 100 ML IVPB SCH (21:05)
[2021-03-24] MEDS: ACETAMINOPHEN TAB 325 MG TAB PO PRN (00:32)
[2021-03-24] MEDS: SODIUM CHLORIDE 0.9% 1,000 ML IV SCH ×3 (04:42→18:22)
[2021-03-24] MEDS: METOPROLOL TARTRATE 25 MG TAB PO SCH ×2 (07:02→17:00)
[2021-03-24] MEDS: CLOPIDOGREL 75 MG TAB PO SCH (07:02)
[2021-03-24] MEDS: ASPIRIN 81 MG PO SCH (07:02)
[2021-03-24] MEDS: GABAPENTIN 300 MG CAP PO SCH ×3 (07:02→17:00)
[2021-03-24] MEDS: SYMBICORT 80-4.5 MCG INHALER INHALATION SCH ×2 (09:18→19:54)
[2021-03-24] MEDS: BUDESONIDE 0.5 MG/2 ML NEBU INHALATION SCH (09:21)
[2021-03-24] MEDS: MEROPENEM 1 GM in SODIUM CHLORIDE 0.9% 100 ML IVPB SCH (09:56)
--- NOTE | 2021-03-24 14:20 | P.PN ---
Subjective Patient is a 60-year-old pleasant female came in with complaints of fever chills and diffuse abdominal pain which was moderate severity yesterday presently no much abdominal pain at this time. Patient denied any diarrhea denied any vomiting but he had some nausea. Patient denied any dysuria flulike symptoms. Patient denied any cough. 2 urine is minimally abnormal patient had a CT of the abdomen which showed diverticulitis. Patient is admitted with initiation of antibiotics in the form of Zosyn. Patient also found to have a elevated creatinine of 1.75 which is elevated from her baseline of 1.2. Patient blood pressure is also low. 03/24/2021 Patient had high-grade fevers lasted as of which are antibiotic was switched to meropenem. Patient has bacteremia with E. coli possible source being colitis which was evident on the CT patient still has some left-sided lower abdominal pain. As there is no evidence of extended spectrum beta lactamase E. coli patient will be switched to ceftriaxone. Unfortunately I do not have any basic metabolic profile available at this time because of which are I'll continue with 1 g of Rocephin. Patient is at least 48-72 hours of documented clear answer for bacteremia before the patient can be discharged. Patient will need total 14 days of antibiotics. Constitutional: Denied any fatigue denied any fever. Cardio vascular: denied any chest pain, palpitations Gastrointestinal denied any nausea vomiting Pulmonary: Denied any shortness of breath cough Neurologic denied any new focal deficits All inpatient medications were reviewed and appropriate changes in these medications as dictated in the interval history and assessment and plan. PHYSICAL EXAMINATION: GENERAL: The patient is alert and oriented x3, not in any acute distress. Well developed, well nourished. HEENT: Pupils are round and equally reacting to light. EOMI. No scleral icterus. No conjunctival pallor. Normocephalic, atraumatic. No pharyngeal erythema. No thyromegaly. CARDIOVASCULAR: S1 and S2 present. No murmurs, rubs, or gallops. PULMONARY: Chest is clear to auscultation, no wheezing or crackles. ABDOMEN: Soft, nontender, nondistended, normoactive bowel sounds. No palpable organomegaly. MUSCULOSKELETAL: No joint swelling or deformity. EXTREMITIES: No cyanosis, clubbing, or pedal edema. NEUROLOGICAL: Gross neurological examination did not reveal any focal deficits. SKIN: No rashes. Assessment and plan -Sepsis: Most probably secondary to diverticulitis patient will be continued on Zosyn at this time. continued with IV fluids Bacteremia with E.coli. Secondary to diverticulitis -Hypertension probably secondary to sepsis. Holding antihypertensive medications and patient is being continued on IV fluids -Mild acute renal failure prerenal azotemia from hypotension and possibility of mild acute tubular necrosis, continue with IV fluids as mentioned above - DVT prophylaxis: Subcutaneous heparin Objective - Vital Signs Vital signs: Vital Signs Temp 98.4 F 03/24/21 07:44 Pulse 87 03/24/21 07:44 Resp 18 03/24/21 07:44 BP 115/70 03/24/21 07:44 Pulse Ox 96 03/24/21 07:44 Intake & Output 03/23/21 03/24/21 03/24/21 18:59 06:59 18:59 Other: # Voids 1 3 - Labs CBC & Chem 7: 03/22/21 20:57 03/22/21 20:57 Labs: Microbiology - Last 24 Hours (Table) 03/23/21 09:39 Blood Culture - Preliminary Blood No Growth after 24 hours 03/23/21 09:32 Blood Culture - Preliminary Blood No Growth after 24 hours 03/22/21 23:35 Blood Culture - Preliminary Blood No Growth after 24 hours 03/22/21 23:10 Blood Culture Gram Stain - Preliminary Blood Blood Culture - Preliminary Escherichia coli 03/22/21 23:10 Blood Culture - Final Blood
[2021-03-24] MEDS: HYDROcodone/APAP 5-325MG 1 EACH TAB PO PRN (16:01)
--- NOTE | 2021-03-24 20:18 | XR ---
EXAMINATION TYPE: XR chest 1V portable DATE OF EXAM: 03/24/2021 COMPARISON: 12/13/2020 and prior HISTORY: 60-year-old female with chest pain TECHNIQUE: Single frontal view of the chest is obtained. FINDINGS: Bibasilar linear opacities noted. There is no focal air space opacity, pleural effusion, o r pneumothorax seen. Cardiomediastinal silhouette is within normal limits. No acute osseous abnormali ty. IMPRESSION: Bibasilar atelectasis, no evidence focal pneumonia or congestive heart failure.
[2021-03-24] MEDS: ATORVASTATIN 40 MG TAB PO SCH (21:08)
[2021-03-24] MEDS: PANTOPRAZOLE 40 MG TABLET PO SCH (21:08)
[2021-03-24] MEDS: QUEtiapine 50 MG TAB PO SCH (21:08)
[2021-03-25] MEDS: ACETAMINOPHEN TAB 325 MG TAB PO PRN ×3 (01:53→19:31)
[2021-03-25] MEDS: SODIUM CHLORIDE 0.9% 1,000 ML IV SCH ×2 (01:55→09:26)
[2021-03-25] MEDS: GABAPENTIN 300 MG CAP PO SCH ×3 (07:08→16:42)
[2021-03-25] MEDS: CLOPIDOGREL 75 MG TAB PO SCH (07:08)
[2021-03-25] MEDS: ASPIRIN 81 MG PO SCH (07:08)
[2021-03-25] MEDS: METOPROLOL TARTRATE 25 MG TAB PO SCH ×2 (07:08→16:42)
[2021-03-25] MEDS: SYMBICORT 80-4.5 MCG INHALER INHALATION SCH ×2 (08:05→20:06)
[2021-03-25 10:09] LABS: HCT 29.7 % (37.2-46.3); HGB 9.4 g/dL (12.0-15.0); MCH 30.8 pg (27.0-32.0); MCHC 31.6 g/dL (32.0-37.0); MCV 97.4 fL (80.0-97.0); Mean Platelet Volume 10.7 fL (9.5-12.2); Platelet Count 107 X 10*3/uL (140-440); RBC 3.05 X 10*6/uL (4.10-5.20); RDW 14.1 % (11.5-14.5); WBC 5.15 X 10*3/uL (4.50-10.00)
--- NOTE | 2021-03-25 10:51 | P.PN ---
Subjective Patient is a 60-year-old pleasant female came in with complaints of fever chills and diffuse abdominal pain which was moderate severity yesterday presently no much abdominal pain at this time. Patient denied any diarrhea denied any vomiting but he had some nausea. Patient denied any dysuria flulike symptoms. Patient denied any cough. 2 urine is minimally abnormal patient had a CT of the abdomen which showed diverticulitis. Patient is admitted with initiation of antibiotics in the form of Zosyn. Patient also found to have a elevated creatinine of 1.75 which is elevated from her baseline of 1.2. Patient blood pressure is also low. 03/24/2021 Patient had high-grade fevers lasted as of which are antibiotic was switched to meropenem. Patient has bacteremia with E. coli possible source being colitis which was evident on the CT patient still has some left-sided lower abdominal pain. As there is no evidence of extended spectrum beta lactamase E. coli patient will be switched to ceftriaxone. Unfortunately I do not have any basic metabolic profile available at this time because of which are I'll continue with 1 g of Rocephin. Patient is at least 48-72 hours of documented clear answer for bacteremia before the patient can be discharged. Patient will need total 14 days of antibiotics. 03/25/2021 patient is still having high-grade fevers, consulted infectious disease continue with Rocephin. Patient has E. coli in the blood sensitivities are still pending. Repeat cultures from the following day or so far negative for 48 hours. Constitutional: Denied any fatigue denied any fever. Cardio vascular: denied any chest pain, palpitations Gastrointestinal denied any nausea vomiting Pulmonary: Denied any shortness of breath cough Neurologic denied any new focal deficits All inpatient medications were reviewed and appropriate changes in these medications as dictated in the interval history and assessment and plan. PHYSICAL EXAMINATION: GENERAL: The patient is alert and oriented x3, not in any acute distress. Well developed, well nourished. HEENT: Pupils are round and equally reacting to light. EOMI. No scleral icterus. No conjunctival pallor. Normocephalic, atraumatic. No pharyngeal erythema. No thyromegaly. CARDIOVASCULAR: S1 and S2 present. No murmurs, rubs, or gallops. PULMONARY: Chest is clear to auscultation, no wheezing or crackles. ABDOMEN: Soft, nontender, nondistended, normoactive bowel sounds. No palpable organomegaly. MUSCULOSKELETAL: No joint swelling or deformity. EXTREMITIES: No cyanosis, clubbing, or pedal edema. NEUROLOGICAL: Gross neurological examination did not reveal any focal deficits. SKIN: No rashes. Assessment and plan -Sepsis: Most probably secondary to diverticulitis patient will be continued on Rocephin.. Patient has E. coli bacteremia cultures history cervical pending at this time Bacteremia with E.coli. Secondary to diverticulitis -Hypertension probably secondary to sepsis. Holding antihypertensive medications and patient is being continued on IV fluids -Mild acute renal failure prerenal azotemia from hypotension and possibility of mild acute tubular necrosis, continue with IV fluids as mentioned above - DVT prophylaxis: Subcutaneous heparin Objective - Vital Signs Vital signs: Vital Signs Temp 98.7 F 03/25/21 08:00 Pulse 81 03/25/21 08:00 Resp 17 03/25/21 08:00 BP 123/74 03/25/21 08:00 Pulse Ox 97 03/25/21 08:00 Intake & Output 03/24/21 03/25/21 03/25/21 18:59 06:59 18:59 Other: # Voids 3 3 - Labs CBC & Chem 7: 03/25/21 05:31 03/22/21 20:57 Labs: Abnormal Lab Results - Last 24 Hours (Table) 03/25/21 Range/Units 05:31 RBC 3.05 L (4.10-5.20) X 10*6/uL Hgb 9.4 L (12.0-15.0) g/dL Hct 29.7 L (37.2-46.3) % MCV 97.4 H (80.0-97.0) fL MCHC 31.6 L (32.0-37.0) g/dL Plt Count 107 L (140-440) X 10*3/uL Microbiology - Last 24 Hours (Table) 03/24/21 07:04 Blood Culture - Preliminary Blood No Growth after 24 hours 03/24/21 02:32 Blood Culture - Preliminary Blood No Growth after 24 hours 03/22/21 23:35 Blood Culture - Preliminary Blood No Growth after 48 hours 03/23/21 17:37 Blood Culture - Preliminary Blood No Growth after 24 hours 03/22/21 20:57 Urine Culture - Preliminary Urine,Voided Gram Neg Bacilli 03/22/21 23:10 Blood Culture Gram Stain - Preliminary Blood Blood Culture - Preliminary Escherichia coli 03/23/21 09:39 Blood Culture - Preliminary Blood No Growth after 24 hours 03/23/21 09:32 Blood Culture - Preliminary Blood No Growth after 24 hours
[2021-03-25 11:41] LABS: African American GFR (CKD) 71.9 (60.0-200.0); Anion Gap 7.2 mmol/L (4.00-12.00); Calcium 7.9 mg/dL (8.7-10.3); Carbon Dioxide 19.8 mmol/L (21.6-31.8); Non-African American GFR(CKD) 62.1 (60.0-200.0); Potassium 3.6 mmol/L (3.5-5.5)
[2021-03-25 13:00] VITALS: BMI 23.5
[2021-03-25] MEDS: ERTAPENEM 1 GM in SODIUM CHLORIDE 0.9% 50 ML IVPB SCH (14:27)
[2021-03-25] MEDS: HYDROcodone/APAP 5-325MG 1 EACH TAB PO PRN (20:35)
[2021-03-25] MEDS: PANTOPRAZOLE 40 MG TABLET PO SCH (20:35)
[2021-03-25] MEDS: QUEtiapine 50 MG TAB PO SCH (20:35)
[2021-03-25] MEDS: ATORVASTATIN 40 MG TAB PO SCH (20:35)
--- NOTE | 2021-03-26 06:59 | CONS ---
CONSULTATION DATE OF SERVICE: 03/25/2021 REASON FOR CONSULTATION: ESBL E coli bacteremia and UTI. HISTORY OF PRESENT ILLNESS: The patient is a 60-year-old female presenting to the hospital 3 days ago on 03/22/2021 for evaluation of abdominal pain of 2 days duration along with fever and chills. The patient's pain has been mostly lower abdominal area to be more of a dull aching quality, intensity almost 7 to 8/10 radiating across the lower abdomen. The patient has been complaining of nausea but no vomiting. No diarrhea. Complaining of fever and chills. With these symptoms, the patient was evaluated by the ER physician. On arrival to the patient did have a fever of 102 degrees Fahrenheit. The patient has been spiking a fever on a daily basis over the last 4 days. The patient did have mild tachycardia. She did have a white count of 11 which has normalized today at 5.15. The patient did have elevated BUN and creatinine and did have elevated liver enzymes. Urine was positive. Rodriguez PCR was negative. The patient did have a CT of abdomen and pelvis on admission, which did show some features of diverticulitis, but no evidence of any complication such as perforation or abscess. The patient has been treated with IV antibiotic therapy with blood and urine culture coming back positive for ESBL that has prompted this infectious disease consultation. REVIEW OF SYSTEMS: Positive points have been mentioned in HPI. Rest of systems are negative. PAST MEDICAL HISTORY: Multiple sclerosis, UTI, depression, anxiety, coronary artery disease, COPD, gastroesophageal reflux disease, fibromyalgia, neuropathy. PAST SURGICAL HISTORY: PTCA with stent, history of back fusion. SOCIAL HISTORY: Current everyday smoker. Rarely drinks. No drug use. FAMILY HISTORY: Father with history of asbestosis, lung cancer, and CVA/TIA. ALLERGIES: No known drug allergies. MEDICATIONS: The patient is currently on Tylenol, Franklin, aspirin, Lipitor, Symbicort, Plavix, Neurontin, Lopressor, Narcan, Zofran, Protonix, Rocephin. PHYSICAL EXAMINATION: Blood pressure 137/77 with a pulse of 87, temperature 100.9. She is 100% on room air. General description is a middle-aged female lying in in no distress. No tachypnea or accessory muscles of respiration use. HEENT: Examination shows slight pallor. No scleral icterus. Oral mucous membranes dry. NECK: Trachea central. No thyromegaly. LUNGS: Unlabored breathing, clear to auscultation anteriorly. No wheeze or crackles. HEART S1, S2. Regular rate and rhythm. ABDOMEN: Soft. She is tender left lower quadrant area. No guarding. No rigidity. No organomegaly. EXTREMITIES: No edema of the feet. SKIN EXAMINATION: No rash or mass palpable. NEUROLOGICAL: Patient is awake, alert, oriented times three. Mood and affect normal. LABS: Hemoglobin 11.4, white count 5.1, admission white count 11, with a BUN of 27, creatinine 1.75. Creatinine is now 1.0. Liver enzymes are mildly elevated. Urine is positive. Rodriguez PCR was negative. CT abdomen and pelvis report as mentioned above. DIAGNOSTIC IMPRESSION AND PLAN: 1. Patient admitted to the hospital with sepsis in this patient who did have a fever, tachycardia, elevated white count. Source is acute diverticulitis with no evidence of any abscess. 2. The patient also has a component of ESBL E coli urinary tract infection with secondary bacteremia. PLAN: 1. Discontinue Rocephin. 2. Start the patient on Invanz 1 g IV piggyback daily. 3. As the patient is currently spiking a fever, may need a repeat CT to make sure no evidence of any diverticular abscess that may need further management. Thank you for this consultation. Will follow this patient along with you. MMODL / IJN: [id number] /
[2021-03-26] MEDS: SODIUM CHLORIDE 0.9% 1,000 ML IV SCH ×3 (07:19→08:36)
[2021-03-26] MEDS: SYMBICORT 80-4.5 MCG INHALER INHALATION SCH ×2 (08:05→19:24)
[2021-03-26] MEDS: ASPIRIN 81 MG PO SCH (08:35)
[2021-03-26] MEDS: METOPROLOL TARTRATE 25 MG TAB PO SCH ×2 (08:35→17:53)
[2021-03-26] MEDS: GABAPENTIN 300 MG CAP PO SCH ×3 (08:36→20:23)
[2021-03-26] MEDS: CLOPIDOGREL 75 MG TAB PO SCH (08:36)
[2021-03-26 10:14] LABS: African American GFR (CKD) 81.7 (60.0-200.0); Anion Gap 8.9 mmol/L (4.00-12.00); BUN/Creat Ratio 8.89 Ratio (12.00-20.00); Calcium 8.3 mg/dL (8.7-10.3); Carbon Dioxide 22.1 mmol/L (21.6-31.8); Non-African American GFR(CKD) 70.5 (60.0-200.0); Potassium 3.8 mmol/L (3.5-5.5)
--- NOTE | 2021-03-26 10:35 | P.PN ---
Subjective Patient is a 60-year-old pleasant female came in with complaints of fever chills and diffuse abdominal pain which was moderate severity yesterday presently no much abdominal pain at this time. Patient denied any diarrhea denied any vomiting but he had some nausea. Patient denied any dysuria flulike symptoms. Patient denied any cough. 2 urine is minimally abnormal patient had a CT of the abdomen which showed diverticulitis. Patient is admitted with initiation of antibiotics in the form of Zosyn. Patient also found to have a elevated creatinine of 1.75 which is elevated from her baseline of 1.2. Patient blood pressure is also low. 03/24/2021 Patient had high-grade fevers lasted as of which are antibiotic was switched to meropenem. Patient has bacteremia with E. coli possible source being colitis which was evident on the CT patient still has some left-sided lower abdominal pain. As there is no evidence of extended spectrum beta lactamase E. coli patient will be switched to ceftriaxone. Unfortunately I do not have any basic metabolic profile available at this time because of which are I'll continue with 1 g of Rocephin. Patient is at least 48-72 hours of documented clear answer for bacteremia before the patient can be discharged. Patient will need total 14 days of antibiotics. 03/25/2021 patient is still having high-grade fevers, consulted infectious disease continue with Rocephin. Patient has E. coli in the blood sensitivities are still pending. Repeat cultures from the following day or so far negative for 48 hours. 04/05/2021 Patient did have ESBL E. coli in the urine and this was later reported by the lab. Patient was switched to ertapenem. Patient still continued to have some low-grade fevers. Patient also saturations are going down patient is on IV normal saline at 1 25 mL/h which will be discontinued at this time and we will order a chest x-ray make to make sure patient doesn't have any pulmonary edema from IV fluids for last 3-4 days. Patient will need a PICC line and IV antibiotics with total duration of 14 days of antibiotics from starting day of ertapenem and if blood cultures remain negative. Constitutional: Denied any fatigue denied any fever. Cardio vascular: denied any chest pain, palpitations Gastrointestinal denied any nausea vomiting Pulmonary: Denied any shortness of breath cough Neurologic denied any new focal deficits All inpatient medications were reviewed and appropriate changes in these medications as dictated in the interval history and assessment and plan. PHYSICAL EXAMINATION: GENERAL: The patient is alert and oriented x3, not in any acute distress. Well developed, well nourished. HEENT: Pupils are round and equally reacting to light. EOMI. No scleral icterus. No conjunctival pallor. Normocephalic, atraumatic. No pharyngeal erythema. No thyromegaly. CARDIOVASCULAR: S1 and S2 present. No murmurs, rubs, or gallops. PULMONARY: Chest is clear to auscultation, no wheezing or crackles. ABDOMEN: Soft, nontender, nondistended, normoactive bowel sounds. No palpable organomegaly. MUSCULOSKELETAL: No joint swelling or deformity. EXTREMITIES: No cyanosis, clubbing, or pedal edema. NEUROLOGICAL: Gross neurological examination did not reveal any focal deficits. SKIN: No rashes. Assessment and plan -Sepsis: Most probably secondary to diverticulitis patient has bacteremia with ESBL E. coli and patient is presently on ertapenem which was started yesterday Bacteremia with E.coli. Secondary to diverticulitis -Hypertension probably secondary to sepsis. Holding antihypertensive medications and patient is being continued on IV fluids. Patient blood pressure is stable at this time continue to hold off on antidepressant medications -Mild acute renal failure prerenal azotemia from hypotension and possibility of mild acute tubular necrosis, improved with IV fluids IV fluids will be discontinued DVT prophylaxis: Subcutaneous heparin Objective - Vital Signs Vital signs: Vital Signs Temp 100.2 F H 03/26/21 06:45 Pulse 95 03/26/21 06:45 Resp 16 03/26/21 06:45 BP 117/70 03/26/21 06:45 Pulse Ox 94 L 03/26/21 06:45 Intake & Output 03/25/21 03/26/21 03/26/21 18:59 06:59 18:59 Weight 68.039 kg Other: Voiding Method Toilet # Voids 2 1 - Labs CBC & Chem 7: 03/25/21 05:31 03/26/21 05:22 Labs: Abnormal Lab Results - Last 24 Hours (Table) 03/25/21 03/26/21 Range/Units 05:31 05:22 Chloride 114 H (96-109) mmol/L Carbon Dioxide 19.8 L (21.6-31.8) mmol/L BUN 8.0 L 8.0 L (9.0-27.0) mg/dL BUN/Creatinine Ratio 8.00 L 8.89 L (12.00-20.00) Ratio Glucose 116 H (70-110) mg/dL Calcium 7.9 L 8.3 L (8.7-10.3) mg/dL Microbiology - Last 24 Hours (Table) 03/24/21 07:04 Blood Culture - Preliminary Blood No Growth after 48 hours 03/24/21 02:32 Blood Culture - Preliminary Blood No Growth after 48 hours 03/22/21 23:35 Blood Culture - Preliminary Blood No Growth after 72 hours 03/23/21 17:37 Blood Culture - Preliminary Blood No Growth after 48 hours 03/22/21 20:57 Urine Culture - Final Urine,Voided Escherichia coli 03/23/21 09:39 Blood Culture - Preliminary Blood No Growth after 48 hours 03/23/21 09:32 Blood Culture - Preliminary Blood No Growth after 48 hours 03/22/21 23:10 Blood Culture Gram Stain - Final Blood Blood Culture - Final Escherichia coli
[2021-03-26] MEDS: ERTAPENEM 1 GM in SODIUM CHLORIDE 0.9% 50 ML IVPB SCH (14:15)
--- NOTE | 2021-03-26 15:38 | XR ---
EXAMINATION TYPE: XR chest 1V DATE OF EXAM: 03/26/2021 COMPARISON: 03/24/2021 HISTORY: 60-year-old female CHF TECHNIQUE: Single frontal view of the chest is obtained. FINDINGS: Heart normal size. Aorta and pelvic vasculature within normal limits. New blunting of the peripheral right costophrenic angle. Partially visualized left-sided posterior lumbar fusion hardware. Otherwise , no consolidation. IMPRESSION: New blunting of the right lateral costophrenic angle could represent a trace effusion with adjacent a telectasis and/or consolidation. No rachell CHF.
[2021-03-26] MEDS: ATORVASTATIN 40 MG TAB PO SCH (20:22)
[2021-03-26] MEDS: PANTOPRAZOLE 40 MG TABLET PO SCH (20:22)
[2021-03-26] MEDS: QUEtiapine 50 MG TAB PO SCH (20:23)
--- NOTE | 2021-03-26 21:20 | PN ---
PROGRESS NOTE DATE OF SERVICE: 03/26/2021 REASON FOR FOLLOWUP: ESBL E coli UTI and bacteremia and diverticulitis. INTERVAL HISTORY: The patient overall fever pattern has improved with low-grade fever of 100.2 this morning. The patient is feeling better. The patient denies having any chest pain, shortness of breath or cough. Abdominal pain is currently controlled. No vomiting or diarrhea. PHYSICAL EXAMINATION: Blood pressure 117/72 with a pulse of 86, temperature 99.1. She is 99% on room. General description is a middle-aged female lying in bed in no distress. Respiratory system: Unlabored breathing, decreased breath sounds at the bases. No wheeze. Heart: S1, S2. Regular rate and rhythm. Abdomen soft, no tenderness. LABS: BUN of 8, creatinine 0.9, hemoglobin 9.4, white count 5.15. Blood culture repeat has been negative so far. DIAGNOSTIC IMPRESSION AND PLAN: Patient with ESBL E coli UTI and bacteremia. Also, with a component of diverticulitis in this patient currently on Invanz, started yesterday, to continue. If any new fever may need reimaging. For now continue with Invanz. MMODL / IJN: [id number] /
[2021-03-27] MEDS: HYDROcodone/APAP 5-325MG 1 EACH TAB PO PRN (01:42)
[2021-03-27] MEDS: SYMBICORT 80-4.5 MCG INHALER INHALATION SCH ×2 (08:28→19:58)
[2021-03-27] MEDS: ASPIRIN 81 MG PO SCH (09:01)
[2021-03-27] MEDS: METOPROLOL TARTRATE 25 MG TAB PO SCH ×2 (09:01→17:27)
[2021-03-27] MEDS: GABAPENTIN 300 MG CAP PO SCH ×3 (09:01→17:27)
[2021-03-27] MEDS: CLOPIDOGREL 75 MG TAB PO SCH (09:02)
[2021-03-27] MEDS: ERTAPENEM 1 GM in SODIUM CHLORIDE 0.9% 50 ML IVPB SCH (12:02)
--- NOTE | 2021-03-27 12:18 | P.PN ---
Subjective Patient is a 60-year-old pleasant female came in with complaints of fever chills and diffuse abdominal pain which was moderate severity yesterday presently no much abdominal pain at this time. Patient denied any diarrhea denied any vomiting but he had some nausea. Patient denied any dysuria flulike symptoms. Patient denied any cough. 2 urine is minimally abnormal patient had a CT of the abdomen which showed diverticulitis. Patient is admitted with initiation of antibiotics in the form of Zosyn. Patient also found to have a elevated creatinine of 1.75 which is elevated from her baseline of 1.2. Patient blood pressure is also low. 03/24/2021 Patient had high-grade fevers lasted as of which are antibiotic was switched to meropenem. Patient has bacteremia with E. coli possible source being colitis which was evident on the CT patient still has some left-sided lower abdominal pain. As there is no evidence of extended spectrum beta lactamase E. coli patient will be switched to ceftriaxone. Unfortunately I do not have any basic metabolic profile available at this time because of which are I'll continue with 1 g of Rocephin. Patient is at least 48-72 hours of documented clear answer for bacteremia before the patient can be discharged. Patient will need total 14 days of antibiotics. 03/25/2021 patient is still having high-grade fevers, consulted infectious disease continue with Rocephin. Patient has E. coli in the blood sensitivities are still pending. Repeat cultures from the following day or so far negative for 48 hours. 03/26/2021 Patient did have ESBL E. coli in the urine and this was later reported by the lab. Patient was switched to ertapenem. Patient still continued to have some low-grade fevers. Patient also saturations are going down patient is on IV normal saline at 1 25 mL/h which will be discontinued at this time and we will order a chest x-ray make to make sure patient doesn't have any pulmonary edema from IV fluids for last 3-4 days. Patient will need a PICC line and IV a ntibiotics with total duration of 14 days of antibiotics from starting day of ertapenem and if blood cultures remain negative. 03/27/2021 patient the fevers resolved probably related to PICC line tomorrow and after that patient can be discharged. PHYSICAL EXAMINATION: GENERAL: The patient is alert and oriented x3, not in any acute distress. Well developed, well nourished. HEENT: Pupils are round and equally reacting to light. EOMI. No scleral icterus. No conjunctival pallor. Normocephalic, atraumatic. No pharyngeal erythema. No thyromegaly. CARDIOVASCULAR: S1 and S2 present. No murmurs, rubs, or gallops. PULMONARY: Chest is clear to auscultation, no wheezing or crackles. ABDOMEN: Soft, nontender, nondistended, normoactive bowel sounds. No palpable organomegaly. MUSCULOSKELETAL: No joint swelling or deformity. EXTREMITIES: No cyanosis, clubbing, or pedal edema. NEUROLOGICAL: Gross neurological examination did not reveal any focal deficits. SKIN: No rashes. Assessment and plan -Sepsis: Most probably secondary to diverticulitis patient has bacteremia with ESBL E. coli and patient is presently on ertapenem which was started yesterday Bacteremia with E.coli. Secondary to diverticulitis -Hypertension probably secondary to sepsis. Blood pressure started going up since her sepsis resolved patient will be resumed on losartan -Mild acute renal failure prerenal azotemia from hypotension and possibility of mild acute tubular necrosis, improved with IV fluids IV fluids will be discontinued DVT prophylaxis: Subcutaneous heparin Objective - Vital Signs Vital signs: Vital Signs Temp 98.3 F 03/27/21 07:40 Pulse 76 03/27/21 07:40 Resp 17 03/27/21 07:40 BP 145/77 03/27/21 07:40 Pulse Ox 99 03/27/21 07:40 Intake & Output 03/26/21 03/27/21 03/27/21 18:59 06:59 18:59 Intake Total 780 Balance 780 Intake: Intake, IV Titration 240 Amount Sodium Chloride 0.9% 1, 240 000 ml @ 125 mls/hr IV . Q8H TANJA Rx#:[id number] Oral 540 Other: Voiding Method Toilet Toilet # Voids 1 - Labs CBC & Chem 7: 03/25/21 05:31 03/26/21 05:22 Labs: Microbiology - Last 24 Hours (Table) 03/23/21 09:39 Blood Culture - Preliminary Blood No Growth after 96 hours 03/23/21 09:32 Blood Culture - Preliminary Blood No Growth after 96 hours 03/24/21 07:04 Blood Culture - Preliminary Blood No Growth after 72 hours 03/24/21 02:32 Blood Culture - Preliminary Blood No Growth after 72 hours 03/22/21 23:35 Blood Culture - Preliminary Blood No Growth after 96 hours 03/23/21 17:37 Blood Culture - Preliminary Blood No Growth after 72 hours
[2021-03-27] MEDS: LOSARTAN 50 MG TAB PO SCH (14:54)
--- NOTE | 2021-03-27 18:20 | PN ---
PROGRESS NOTE DATE OF SERVICE: 03/27/2021 REASON FOR FOLLOWUP: 1. ESBL E coli UTI and bacteremia. 2. Diverticulitis. INTERVAL HISTORY: Patient is afebrile. The patient is breathing comfortably. Patient denies having any chest pain. No shortness of breath or cough. Abdominal pain is currently controlled. No vomiting or diarrhea. PHYSICAL EXAMINATION: Blood pressure 145/77 with a pulse of 73, temperature 98.3, she is 99% on room air. General description is a middle-aged female lying in in no distress. Respiratory system: Unlabored breathing, clear to auscultation anteriorly. Heart S1, S2. Regular rate and rhythm. Abdomen is soft, no tenderness. LABS: No new labs have been obtained today. DIAGNOSTIC IMPRESSION AND PLAN: Patient with ESBL E coli UTI and bacteremia. Repeat blood culture has been negative. Patient has shown overall clinical improvement. To continue with Invanz. She got a [facility] tomorrow to finish her IV antibiotic therapy in the outpatient setting. Continue supportive care. MMODL / IJN: [id number] /
[2021-03-27] MEDS: ATORVASTATIN 40 MG TAB PO SCH (20:02)
[2021-03-27] MEDS: QUEtiapine 50 MG TAB PO SCH (20:02)
[2021-03-27] MEDS: PANTOPRAZOLE 40 MG TABLET PO SCH (20:02)
[2021-03-28] MEDS: METOPROLOL TARTRATE 25 MG TAB PO SCH ×2 (07:31→17:19)
[2021-03-28] MEDS: ASPIRIN 81 MG PO SCH (07:31)
[2021-03-28] MEDS: GABAPENTIN 300 MG CAP PO SCH ×3 (07:32→17:19)
[2021-03-28] MEDS: LOSARTAN 50 MG TAB PO SCH (07:32)
[2021-03-28] MEDS: CLOPIDOGREL 75 MG TAB PO SCH (07:32)
[2021-03-28] MEDS: SYMBICORT 80-4.5 MCG INHALER INHALATION SCH ×2 (08:49→19:59)
[2021-03-28] MEDS: ERTAPENEM 1 GM in SODIUM CHLORIDE 0.9% 50 ML IVPB SCH (12:09)
--- NOTE | 2021-03-28 14:48 | P.PN ---
Subjective Progress Note Date: 03/28/21 Patient is a 60-year-old pleasant female came in with complaints of fever chills and diffuse abdominal pain which was moderate severity yesterday presently no much abdominal pain at this time. Patient denied any diarrhea denied any vomiting but he had some nausea. Patient denied any dysuria flulike symptoms. Patient denied any cough. 2 urine is minimally abnormal patient had a CT of the abdomen which showed diverticulitis. Patient is admitted with initiation of antibiotics in the form of Zosyn. Patient also found to have a elevated creatinine of 1.75 which is elevated from her baseline of 1.2. Patient blood pressure is also low. 03/24/2021 Patient had high-grade fevers lasted as of which are antibiotic was switched to meropenem. Patient has bacteremia with E. coli possible source being colitis which was evident on the CT patient still has some left-sided lower abdominal pain. As there is no evidence of extended spectrum beta lactamase E. coli patient will be switched to ceftriaxone. Unfortunately I do not have any basic metabolic profile available at this time because of which are I'll continue with 1 g of Rocephin. Patient is at least 48-72 hours of documented clear answer for bacteremia before the patient can be discharged. Patient will need total 14 days of antibiotics. 03/25/2021 patient is still having high-grade fevers, consulted infectious disease continue with Rocephin. Patient has E. coli in the blood sensitivities are still pending. Repeat cultures from the following day or so far negative for 48 hours. 03/26/2021 Patient did have ESBL E. coli in the urine and this was later reported by the lab. Patient was switched to ertapenem. Patient still continued to have some low-grade fevers. Patient also saturations are going down patient is on IV nor mal saline at 1 25 mL/h which will be discontinued at this time and we will order a chest x-ray make to make sure patient doesn't have any pulmonary edema from IV fluids for last 3-4 days. Patient will need a PICC line and IV antibiotics with total duration of 14 days of antibiotics from starting day of ertapenem and if blood cultures remain negative. 03/27/2021 patient the fevers resolved probably related to PICC line tomorrow and after that patient can be discharged. 03/28/2021 Patient is seen and examined and follow-up this morning with no acute overnight issues. Patient continues on clear liquids and denies any abdominal discomfort stating she is hungry and requesting an increase in her diet and will advance to low fiber and monitor closely. Patient scheduled to receive a midline and continue on IV Invanz in the outpatient setting and infectious disease is following. No staff available for midline placement and will receive one in the morning and anticipate discharge in the a.m. Review of systems: Constitutional: No reports of fatigue, fever, or chills Cardiovascular: No reports of chest pain or palpitations Respiratory: No reports of shortness of breath or cough GI: No reports of nausea, vomiting, or diarrhea : No reports of dysuria or retention Neurovascular: No reports of weakness or numbness All medications have been reviewed Objective - Vital Signs Vital signs: Vital Signs Temp 98.2 F 03/28/21 07:28 Pulse 85 03/28/21 07:28 Resp 18 03/28/21 02:00 BP 129/77 03/28/21 07:28 Pulse Ox 95 03/28/21 07:28 Intake & Output 03/27/21 03/28/21 03/28/21 18:59 06:59 18:59 Other: Voiding Method Toilet Toilet # Voids 3 - Exam GENERAL: The patient is alert and oriented x3, not in any acute distress. Well developed, well nourished. HEENT: Pupils are round and equally reacting to light. EOMI. No scleral icterus. No conjunctival pallor. Normocephalic, atraumatic. No pharyngeal erythema. No thyromegaly. CARDIOVASCULAR: S1 and S2 present. No murmurs, rubs, or gallops. PULMONARY: Chest is clear to auscultation, no wheezing or crackles. ABDOMEN: Soft, nontender, nondistended, normoactive bowel sounds. No palpable organomegaly. MUSCULOSKELETAL: No joint swelling or deformity. EXTREMITIES: No cyanosis, clubbing, or pedal edema. NEUROLOGICAL: Gross neurological examination did not reveal any focal deficits. SKIN: No rashes. - Labs CBC & Chem 7: 03/25/21 05:31 03/26/21 05:22 Labs: Microbiology - Last 24 Hours (Table) 03/24/21 07:04 Blood Culture - Preliminary Blood No Growth after 96 hours 03/24/21 02:32 Blood Culture - Preliminary Blood No Growth after 96 hours 03/22/21 23:35 Blood Culture - Preliminary Blood No Growth after 120 hours 03/23/21 17:37 Blood Culture - Preliminary Blood No Growth after 96 hours 03/23/21 09:39 Blood Culture - Preliminary Blood No Growth after 96 hours 03/23/21 09:32 Blood Culture - Preliminary Blood No Growth after 96 hours Assessment and Plan Assessment: -Sepsis: Most probably secondary to diverticulitis, present on admission. patient has bacteremia with ESBL E. coli and patient is presently on ertapenem infectious disease following. Plan is for midline placement and IV antibiotic therapy outpatient although no staff available to place the midline today, will receive midline on Sunday morning -Bacteremia with E.coli. Secondary to diverticulitis with most recent blood cultures remaining negative and infectious disease is following. -Hypertension probably secondary to sepsis. Blood pressure started going up since her sepsis resolved patient will be resumed on losartan -Mild acute renal failure prerenal azotemia from hypotension and possibility of mild acute tubular necrosis, improved with IV fluids IV fluids will be discontinued DVT prophylaxis: Subcutaneous heparin Plan: Patient will continue on IV ertapenem and is scheduled to receive a midline in the morning for continued IV antibiotic therapy in the outpatient setting. Patient was maintained on clear liquids and tolerating and denies any abdominal discomfort. Will advance to low fiber and monitor closely. Vital signs are stable and patient is afebrile. She reports to passing gas and having bowel movements. Patient is urinating with no difficulties or dysuria noted. Will continue to monitor closely and anticipate discharge after midline placement tomorrow.
[2021-03-28] MEDS: ACETAMINOPHEN TAB 325 MG TAB PO PRN (17:22)
[2021-03-28] MEDS: ATORVASTATIN 40 MG TAB PO SCH (20:31)
[2021-03-28] MEDS: PANTOPRAZOLE 40 MG TABLET PO SCH (20:31)
[2021-03-28] MEDS: QUEtiapine 50 MG TAB PO SCH (20:31)
--- NOTE | 2021-03-29 06:32 | PN ---
PROGRESS NOTE DATE OF SERVICE: 03/28/2021 REASON FOR FOLLOWUP: 1. ESBL E coli urinary tract infection and bacteremia. 2. Diverticulitis. INTERVAL HISTORY: The patient is afebrile. The patient is breathing comfortably. The patient denies having any chest pain, shortness of breath, cough. No nausea, vomiting. Abdominal pain has improved. No diarrhea. PHYSICAL EXAMINATION: Blood pressure 122/85, pulse of 77, temperature 98.5, she is 95% on room air. General description is a middle-aged female lying in bed in no distress. Respiratory system: Unlabored breathing, clear to auscultation anteriorly. Heart S1, S2. Regular rate and rhythm. Abdomen is soft, no tenderness. LABS: BUN of 8, creatinine 0.9. DIAGNOSTIC IMPRESSION AND PLAN: Patient with ESBL E coli urinary tract infection with bacteremia and diverticulitis. Repeat blood culture has been negative. She will be able to finish therapy with IV Invanz to finish a 2 week course of therapy and close outpatient followup. MMODL / IJN: [id number] /
[2021-03-29] MEDS: LOSARTAN 50 MG TAB PO SCH (07:56)
[2021-03-29] MEDS: ASPIRIN 81 MG PO SCH (07:56)
[2021-03-29] MEDS: CLOPIDOGREL 75 MG TAB PO SCH (07:56)
[2021-03-29] MEDS: GABAPENTIN 300 MG CAP PO SCH ×2 (07:56→11:02)
[2021-03-29] MEDS: METOPROLOL TARTRATE 25 MG TAB PO SCH (07:56)
[2021-03-29 08:23] VITALS: TEMP 98.5
[2021-03-29] MEDS: SYMBICORT 80-4.5 MCG INHALER INHALATION SCH (09:08)
[2021-03-29] MEDS: ERTAPENEM 1 GM in SODIUM CHLORIDE 0.9% 50 ML IVPB SCH (11:02)
--- NOTE | 2021-03-29 11:40 | PN ---
PROGRESS NOTE DATE OF SERVICE: 03/29/2021 REASON FOR FOLLOWUP: ESBL E coli urinary tract infection and bacteremia. INTERVAL HISTORY: Patient is afebrile. The patient is breathing comfortably. Denies having any chest pain, shortness of breath or cough. Abdominal pain is currently controlled. No nausea, vomiting or diarrhea. PHYSICAL EXAMINATION: Blood pressure 128/76, pulse 70, temperature 98.5. She is 96% on room air. General description is a middle-aged female lying in bed in no distress. Respiratory system: Unlabored breathing, clear to auscultation anteriorly. Heart S1, S2. Regular rate and rhythm. Abdomen: Soft, no tenderness. LABS: No new labs have been obtained today. Blood culture repeat has been negative. DIAGNOSTIC IMPRESSION AND PLAN: Patient with ESBL E coli urinary tract infection infection with secondary bacteremia. Follow-up blood culture negative. Patient waiting for midline placement. Afterwards she will go home. Continue with another 10 days of IV Invanz to finish a course of therapy. Continue supportive care. MMODL / IJN: [id number] /
--- NOTE | 2021-03-29 12:17 | CDI ---
Documentation Clarification Form Date: 03/29/2021 12:07:04 PM From: Parisa Way CCS, CCDS Admit Date: 03/22/2021 10:50:00 PM Patient Name: Karlie Goss Visit Number: [id number] Discharge Date: ATTENTION: The Clinical Documentation Specialists (CDI) and [facility] Coding Staff appreciate your assistance in clarifying documentation. Please respond to the clarification below the line at the bottom and electronically sign. The CDI & [facility] Coding staff will review the response and follow-up if needed. Please note: Queries are made part of the Legal Health Record. If you have any questions, please contact the author of this message via ITS. Dr. Amadeo Musa: Anemia is documented in the patient's Past Medical History in the 03/22 ED Note and the 03/23 H/P without further specificity. The patient's admitting Hgb was 12.2, Hct was 36.6. On 03/25: Hgb 9.4, Hct 29.7. Platelet Count also dropped from 184 on 03/22 to 107 on 03/25. Aubagio po daily ordered 03/24 (not given) (Home med) Additional specificity regarding the type and acuity] of anemia is requested. History/Risk Factors per the 03/23 H/P: Drop foot, Multiple Sclerosis with history of falls, UTI, Depression & Anxiety, Hyperlipidemia, [place] w/coronary stent, COPD, GERD, Fibromyalgia and Neuropathy. Clinical indicators: Presented to the ED on 03/22 with abdominal pain, shaking & chills. ED Clinical Impression: Dehydration, SANDHYA, Diverticulitis, UTI Treatment 03/22: IV NaCl 1,000 mls @ 999 mls/hr q1H, IV Zofran, IV Zosyn, IV NaCl 1,000 mls @ 124 mls/hr q8H. 03/23: IV NaCl 1,000 mls @ 999 mls/hr q1H, IV Meropenem, po ASA, po Plavix. Please clarify the type and acuity of anemia: [ ] Acute blood loss anemia [ ] Acute on chronic blood loss anemia [ ] Chronic blood loss anemia [ ] Hemolytic anemia [ ] Drug induced anemia [ ] Unable to determine [ ] Other, please specify (Template Last Revised: October 2020) 03/31 Query response is documented in the 03/29 Discharge Summary dictated by Dr. Corrie Sullivan. (CDI: MA) [email or web address]
[2021-03-29 14:51] VITALS: BP 103/62; PULSE 73; RESP 18
--- NOTE | 2021-03-30 09:34 | P.DS ---
Providers Date of admission: 03/22/21 22:50 Expected date of discharge: 03/29/21 Attending physician: Chandan Shi Consults: 03/25/21 09:41 Consult Physician Routine Consulting Provider: Suraj Granda Consult Reason/Comments: fevers Do you want consulting provider notified?: Yes Primary care physician: Khoi Rey [place] Hospital Course: Final diagnosis -Chronic blood loss anemia -Sepsis: Most probably secondary to diverticulitis, present on admission. patient has bacteremia with ESBL E. coli -Bacteremia with E.coli. Secondary to diverticulitis -Hypotension probably secondary to sepsis -History of hypertension -Mild acute renal failure prerenal azotemia from hypotension and possibility of mild acute tubular necrosis, improved with IV fluids IV fluids will be discontin ued -DVT prophylaxis -Full code Discharge disposition Patient is being discharged in a stable condition with guarded prognosis to home. Patient will follow-up with Dr. Rey in the outpatient setting upon discharge. Patient is to follow-up with infectious disease Dr. Granda in 2 weeks. Patient will also continue with home care and will continue on IV antibiotics in the form of Invanz for the next 2 weeks and patient has received a midline. Total time taken is greater than 35 minutes. Hospital course Patient is a 60-year-old pleasant female came in with complaints of fever chills and diffuse abdominal pain which was moderate severity yesterday presently no much abdominal pain at this time. Patient denied any diarrhea denied any vomiting but he had some nausea. Patient denied any dysuria flulike symptoms. Patient denied any cough. 2 urine is minimally abnormal patient had a CT of the abdomen which showed diverticulitis. Patient is admitted with initiation of antibiotics in the form of Zosyn. Patient also found to have a elevated creatinine of 1.75 which is elevated from her baseline of 1.2. Patient blood pressure is also low. 03/24/2021 Patient had high-grade fevers lasted as of which are antibiotic was switched to meropenem. Patient has bacteremia with E. coli possible source being colitis which was evident on the CT patient still has some left-sided lower abdominal pain. As there is no evidence of extended spectrum beta lactamase E. coli patient will be switched to ceftriaxone. Unfortunately I do not have any basic metabolic profile available at this time because of which are I'll continue with 1 g of Rocephin. Patient is at least 48-72 hours of documented clear answer for bacteremia before the patient can be discharged. Patient will need total 14 days of antibiotics. 03/25/2021 patient is still having high-grade fevers, consulted infectious disease continue with Rocephin. Patient has E. coli in the blood sensitivities are still pending. Repeat cultures from the following day or so far negative for 48 hours. 03/26/2021 Patient did have ESBL E. coli in the urine and this was later reported by the lab. Patient was switched to ertapenem. Patient still continued to have some low-grade fevers. Patient also saturations are going down patient is on IV normal saline at 1 25 mL/h which will be discontinued at this time and we will order a chest x-ray make to make sure patient doesn't have any pulmonary edema from IV fluids for last 3-4 days. Patient will need a PICC line and IV antibiotics with total duration of 14 days of antibiotics from starting day of ertapenem and if blood cultures remain negative. 03/27/2021 patient the fevers resolved probably related to PICC line tomorrow and after that patient can be discharged. 03/28/2021 Patient is seen and examined and follow-up this morning with no acute overnight issues. Patient continues on clear liquids and denies any abdominal discomfort stating she is hungry and requesting an increase in her diet and will advance to low fiber and monitor closely. Patient scheduled to receive a midline and continue on IV Invanz in the outpatient setting and infectious disease is following. No staff available for midline placement and will receive one in the morning and anticipate discharge in the a.m. 03/29/2021 Patient is seen in follow-up this morning with no acute overnight issues. Patient states she feels much better and anticipating to go home and simply waiting for a midline to be placed as there was no staff over the weekend or the last 2 days due to the holiday. Will continue on IV Invanz with [facility] and visiting nurses and will follow-up closely with infectious disease Dr. Granda in the outpatient setting. Patient also instructed to follow-up with primary care provider upon discharge. Patient encouraged to continue with low fiber strict dietary guidelines upon discharge. Currently no reports of chest pain, shortness of breath, or palpitations. Patient is afebrile. No reports of nausea or vomiting and patient is tolerating diet. Patient will be discharged home today. On exam vital signs are stable. Cardio S1, S2 are muffled. Respiratory system shows diminished breath sounds at the bases with no wheezing or rhonchi noted. Abdomen is soft and nontender. Nervous system shows no focal deficits. Please refer to medication reconciliation sheet for a list of medications. Patient Condition at Discharge: Stable Plan - Discharge Summary Discharge Rx Participant: Yes New Discharge Prescriptions: New Acetaminophen Tab [Tylenol] 650 mg PO Q6HR PRN tab PRN Reason: Mild Pain Or Fever > 100.5 HYDROcodone/APAP 5-325MG [[place] 5-325] 1 each PO Q4HR PRN #12 tab PRN Reason: Moderate Pain Continue Cholecalciferol [Vitamin D3 (25 Mcg = 1000 Iu)] 50 mcg PO DAILY Aspirin EC [Ecotrin Low Dose] 81 mg PO DAILY Metoprolol Tartrate [Lopressor] 25 mg PO AC-BID Teriflunomide [Aubagio] 14 mg PO DAILY Atorvastatin [Lipitor] 40 mg PO HS QUEtiapine [SEROquel] 50 mg PO HS #30 tab Omeprazole 20 mg PO HS Ferrous Sulfate [Iron (65 MG Elemental)] 325 mg PO DAILY Fluticasone/Vilanterol [Breo Ellipta 100-25 Mcg Inhaler] 1 puff INHALATION RT-BID methocarbamoL [Robaxin] 500 mg PO HS methocarbamoL [Robaxin] 250 - 500 mg PO DAILY Losartan [Cozaar] 50 mg PO DAILY Lidocaine 5% Oint [Xylocaine 5% Oint] 1 applic TOPICAL DAILY PRN PRN Reason: Pain Clopidogrel [Plavix] 75 mg PO DAILY Gabapentin [Neurontin] 300 mg PO AC-TID Discharge Medication List Aspirin EC [Ecotrin Low Dose] 81 mg PO DAILY 12/12/20 [History] Atorvastatin [Lipitor] 40 mg PO HS 12/12/20 [History] Cholecalciferol [Vitamin D3 (25 Mcg = 1000 Iu)] 50 mcg PO DAILY 12/12/20 [History] Ferrous Sulfate [Iron (65 MG Elemental)] 325 mg PO DAILY 12/12/20 [History] Fluticasone/Vilanterol [Breo Ellipta 100-25 Mcg Inhaler] 1 puff INHALATION RT- BID 12/12/20 [History] Metoprolol Tartrate [Lopressor] 25 mg PO AC-BID 12/12/20 [History] Omeprazole 20 mg PO HS 12/12/20 [History] Teriflunomide [Aubagio] 14 mg PO DAILY 12/12/20 [History] QUEtiapine [SEROquel] 50 mg PO HS #30 tab 12/16/20 [Rx] Clopidogrel [Plavix] 75 mg PO DAILY 03/22/21 [History] Gabapentin [Neurontin] 300 mg PO AC-TID 03/22/21 [History] Lidocaine 5% Oint [Xylocaine 5% Oint] 1 applic TOPICAL DAILY PRN 03/22/21 [History] Losartan [Cozaar] 50 mg PO DAILY 03/22/21 [History] methocarbamoL [Robaxin] 250 - 500 mg PO DAILY 03/22/21 [History] methocarbamoL [Robaxin] 500 mg PO HS 03/22/21 [History] Acetaminophen Tab [Tylenol] 650 mg PO Q6HR PRN tab 03/29/21 [Rx] HYDROcodone/APAP 5-325MG [[place] 5-325] 1 each PO Q4HR PRN #12 tab 03/29/21 [Rx] Follow up Appointment(s)/Referral(s): [facility]Infusion [NON-STAFF] - Khoi Rey MD [Primary Care Provider] - 03/31/21 10:00 am Suraj Granda MD [STAFF PHYSICIAN] - 04/12/21 1:30 pm [facility] Visiting Nurse, [NON-STAFF] - Patient Instructions/Handouts: Diverticulitis (DC), Acute Kidney Injury (DC), Urinary Tract Infection in Women (DC) Activity/Diet/Wound Care/Special Instructions: Okay for DC after midline placement activity Limited until follow-up Follow-up with primary care provider upon discharge Follow-up with surgery outpatient Follow-up with infectious disease outpatient continue with antibiotics per infectious disease recommendations continue Homecare Continue low fiber diet and strict dietary restrictions Discharge Disposition: HOME WITH HOME HEALTH SERVICES
== END 2021-03-29 16:13 | disposition home health service (06) | DRG 871 ==
LOC: EC 20:09 → 4SSUR 22:50
PROVIDERS: ADMIT Hospitalist; ATTEND Hospitalist
PROC: 05HC33Z Insertion of Infusion Device into Left Basilic Vein, Percutaneous Approach (ICD-10-PCS; principal; 2021-03-29 16:50)
DX: A41.51 Sepsis due to Escherichia coli [E. coli] (principal); N17.0 Acute kidney failure with tubular necrosis; K57.32 Diverticulitis of large intestine without perforation or abscess without bleeding; Z16.12 Extended spectrum beta lactamase (ESBL) resistance; N39.0 Urinary tract infection, site not specified; G35 Multiple sclerosis; J44.9 Chronic obstructive pulmonary disease, unspecified; Z20.822 Contact with and (suspected) exposure to COVID-19; I95.9 Hypotension, unspecified; E86.0 Dehydration; D50.0 Iron deficiency anemia secondary to blood loss (chronic); I25.10 Atherosclerotic heart disease of native coronary artery without angina pectoris; I10 Essential (primary) hypertension; E78.5 Hyperlipidemia, unspecified; F32.9 Major depressive disorder, single episode, unspecified; F41.9 Anxiety disorder, unspecified; K21.9 Gastro-esophageal reflux disease without esophagitis; M21.379 Foot drop, unspecified foot; M79.7 Fibromyalgia; G62.9 Polyneuropathy, unspecified; I25.2 Old myocardial infarction; Z79.82 Long term (current) use of aspirin; Z79.02 Long term (current) use of antithrombotics/antiplatelets; Z79.899 Other long term (current) drug therapy; Z79.51 Long term (current) use of inhaled steroids; Z91.81 History of falling; Z87.440 Personal history of urinary (tract) infections; Z95.5 Presence of coronary angioplasty implant and graft; Z98.1 Arthrodesis status; Z87.891 Personal history of nicotine dependence; Z82.3 Family history of stroke; Z82.49 Family history of ischemic heart disease and other diseases of the circulatory system; Z82.5 Family history of asthma and other chronic lower respiratory diseases; Z80.1 Family history of malignant neoplasm of trachea, bronchus and lung; Z84.89 Family history of other specified conditions
CPT/HCPCS: 36410; 36415; 71045; 74176; 76937; 80048; 80053; 81001; 82150; 83605; 83690; 84484; 85025; 85027; 87040; 87077; 87086; 87186; 87635; 93005; 94640; 96361; 96365; 96366; 96374; 99285

== ENCOUNTER → 2021-05-13 | Outpatient (CLI) | payer MEDICARE, OTHER ==
--- NOTE | 2021-05-13 10:45 | US ---
EXAMINATION TYPE: US kidneys/renal and bladder DATE OF EXAM: 05/13/2021 COMPARISON: CT abdomen and pelvis March 22, 2021 CLINICAL HISTORY: N18.9 CKD. EXAM MEASUREMENTS: Right Kidney: 7.5 x 4.8 x 3.9 cm Left Kidney: 8.7 x 4.5 x 4.4 cm Right Kidney: No hydronephrosis or masses seen, measures small in size Left Kidney: No hydronephrosis or masses seen, measures small in size Bladder: 0.7cm echogenic focus seen Bilateral Jets seen: no There is no evidence for hydronephrosis at this point in time. No nephrolithiasis is seen. No nic s are identified. The urinary bladder is satisfactorily distended. Bilateral ureteral jets are not seen. Suspect intraluminal calculus though motility not documented by technologist. Small 4 mm calcul us on CT lower pole right kidney on coronal image 68 not clearly seen on ultrasound images saved. IMPRESSION: No hydronephrosis noted bilaterally.
== END | disposition home or self-care (01) ==
LOC: RADUSWWP 10:07
PROVIDERS: ATTEND Internal Medicine
DX: N18.4 Chronic kidney disease, stage 4 (severe) (principal)
CPT/HCPCS: 76770

== ENCOUNTER 2021-05-19 07:10 | Day surgery (SDC) | payer MEDICARE, OTHER ==
[2021-05-17 13:18] VITALS: BMI 23.5
[~2021-05-19 07:10] MED LIST: LACTATED RINGERS 1,000 ML IV SCH
[2021-05-19 07:33] VITALS: TEMP 97.3
[2021-05-19] MEDS ORDERED: LACTATED RINGERS 1,000 ML IV ONE (07:40)
[2021-05-19] MEDS ORDERED: PROPOFOL 10 MG/ML 20 ML VIAL IV ONE (08:09)
--- NOTE | 2021-05-19 08:30 | P.PCN ---
Date of Procedure: 05/19/21 Procedure(s) Performed: BRIEF HISTORY: Patient is a 60-year-old pleasant white female scheduled for an elective colonoscopy as a part of screening for colorectal neoplasia. PROCEDURE PERFORMED: Colonoscopy. PREOPERATIVE DIAGNOSIS: Screening for colon cancer. IV sedation per Anesthesia. PROCEDURE: After informed consent was obtained, the patient, was brought into the endoscopy unit. IV sedation was administered by Anesthesia under continuous monitoring. Digital rectal examination was normal. Initially the Olympus CF-160 flexible video colonoscope was then inserted in the rectum, gradually advanced into the cecum without any difficulty. Careful examination was performed as the scope was gradually being withdrawn. Ileocecal valve and the appendiceal orifice were visualized and appeared normal. Prep was excellent. Mucosa of the cecum, ascending colon, appeared normal. The scope colon there was a 7-8 mm polyp that was removed by snare polypectomy. Rest of the transverse colon, descending colon, sigmoid colon, and rectum appeared normal. Scattered diffuse diverticulosis seen. Retroflexion was performed in the rectum and no lesions were seen. The patient tolerated the procedure well. IMPRESSION: 7-8 mm transverse colon polyp status post polypectomy Scattered diffuse diverticulosis RECOMMENDATIONS: Findings of this examination were discussed with the patient as a family. She was advised to follow with the biopsy result. If the biopsy shows an adenoma she can have a repeat colonoscopy in 5 years.
[2021-05-19 08:35] VITALS: RESP 16
[2021-05-19 08:44] VITALS: BP 122/83; PULSE 72
== END 2021-05-19 09:29 ==
LOC: ORWHC2ENDO 07:10
PROVIDERS: ATTEND Internal Medicine Gastroenterology
DX: Z12.11 Encounter for screening for malignant neoplasm of colon (principal); D12.4 Benign neoplasm of descending colon; K57.90 Diverticulosis of intestine, part unspecified, without perforation or abscess without bleeding; I25.10 Atherosclerotic heart disease of native coronary artery without angina pectoris; I10 Essential (primary) hypertension; I25.2 Old myocardial infarction; J44.9 Chronic obstructive pulmonary disease, unspecified; G35 Multiple sclerosis; M19.90 Unspecified osteoarthritis, unspecified site; N28.9 Disorder of kidney and ureter, unspecified; R56.9 Unspecified convulsions
CPT/HCPCS: 88305; 45385; J2704

== ENCOUNTER 2021-08-25 10:24 | Emergency (ER) | payer MEDICARE, OTHER ==
[2021-08-25] MEDS ORDERED: SODIUM CHLORIDE 0.9% 1,000 ML IV STA (11:32)
[2021-08-25] MEDS ORDERED: MORPHINE SULFATE 4 MG/ML SYRINGE IVP STA (11:32)
[2021-08-25] MEDS ORDERED: SODIUM CHLORIDE 0.9% 500 ML 500 ML IV STA (11:32)
[2021-08-25] MEDS ORDERED: ONDANSETRON 4 MG/2 ML VIAL IVP STA (11:33)
--- NOTE | 2021-08-25 11:35 | ED ---
General Adult HPI - General Chief complaint: Abdominal Pain Stated complaint: Abd pain Time Seen by Provider: 08/25/21 11:15 Source: patient Mode of arrival: ambulatory Limitations: no limitations - History of Present Illness Initial comments: 60-year-old female with a past medical history of multiple sclerosis, UTI, MA, COPD, fibromyalgia, diverticulitis presents to the emergency room for a chief complaint of abdominal pain. Patient states for the past 2 days she has had lower abdominal pain that radiates to her back. States that she has had watery diarrhea with this. Denies vomiting. Patient went to urgent care and they were concerned she could have diverticulitis given her history. Patient was sent to the emergency room. Patient denies any fevers. States she does feel lightheaded.Patient has no other complaints at this time including shortness of breath, chest pain, nausea or vomiting, headache, or visual changes. - Related Data Home Medications Medication Instructions Recorded Confirmed Aspirin EC [Ecotrin Low Dose] 81 mg PO DAILY 12/12/20 05/17/21 Atorvastatin [Lipitor] 40 mg PO HS 12/12/20 05/17/21 Cholecalciferol [Vitamin D3 (25 50 mcg PO DAILY 12/12/20 05/17/21 Mcg = 1000 Iu)] Ferrous Sulfate [Iron (65 MG 325 mg PO DAILY 12/12/20 05/17/21 Elemental)] Fluticasone/Vilanterol [Breo 1 puff INHALATION RT-BID 12/12/20 05/17/21 Ellipta 100-25 Mcg Inhaler] Metoprolol Tartrate [Lopressor] 25 mg PO BID 12/12/20 05/17/21 Omeprazole 20 mg PO HS 12/12/20 05/17/21 Teriflunomide [Aubagio] 14 mg PO DAILY 12/12/20 05/17/21 Clopidogrel [Plavix] 75 mg PO HS 03/22/21 05/17/21 Gabapentin [Neurontin] 300 mg PO TID 03/22/21 05/17/21 Lidocaine 5% Oint [Xylocaine 5% 1 applic TOPICAL TID PRN 03/22/21 05/17/21 Oint] methocarbamoL [Robaxin] 250 mg PO 0700,1600 03/22/21 05/17/21 methocarbamoL [Robaxin] 500 mg PO HS 03/22/21 05/17/21 Previous Rx's Medication Instructions Recorded QUEtiapine [SEROquel] 50 mg PO HS #30 tab 12/16/20 Amoxicillin/Potassium Clav 1 tab PO Q12HR #14 tab 08/25/21 [Augmentin 875-125 Tablet] Dicyclomine [Bentyl] 20 mg PO TID PRN #14 tablet 08/25/21 Allergies Allergy/AdvReac Type Severity Reaction Status Date / Time No Known Allergies Allergy Verified 08/25/21 10:41 Review of Systems ROS Statement: Those systems with pertinent positive or pertinent negative responses have been documented in the HPI. ROS Other: All systems not noted in ROS Statement are negative. Past Medical History Past Medical History: Unable to Obtain, Musculoskeletal Disorder Additional Past Medical History / Comment(s): Drop foot, Multiple sclerosis, Hx of falls, Hx of UTI, Depression and anxiety, HLD, [place] with stent Apr 2019, COPD, anemia, GERD, Fibromyalgia, neuropathy History of Any Multi-Drug Resistant Organisms: ESBL Date of last positivie culture/infection: 03/22/21 ESBL-E.coli MDRO Source:: Blood & Urine Past Surgical History: Unable to Obtain Additional Past Surgical History / Comment(s): cardiac cath, Hx of back fusion that failed and required multiple surgeries Past Anesthesia/Blood Transfusion Reactions: No Reported Reaction Past Psychological History: No Psychological Hx Reported Smoking Status: Former smoker Past Alcohol Use History: None Reported Past Drug Use History: None Reported - Past Family History Mother Family Medical History: No Reported History Father Family Medical History: Cancer General Exam Limitations: no limitations General appearance: alert, in no apparent distress Head exam: Present: atraumatic Eye exam: Present: normal appearance, PERRL, EOMI. Absent: scleral icterus, conjunctival injection ENT exam: Present: normal exam, mucous membranes moist Neck exam: Present: normal inspection, full ROM. Absent: tenderness Respiratory exam: Present: normal lung sounds bilaterally. Absent: respiratory distress, wheezes Cardiovascular Exam: Present: regular rate, normal rhythm, normal heart sounds GI/Abdominal exam: Present: soft, tenderness (mild lower abdominal tenderness without guarding or rebound), normal bowel sounds. Absent: distended, guarding, rebound Course Vital Signs 08/25/21 10:39 Temperature 98.9 F Pulse Rate 66 Respiratory 20 Rate Blood Pressure 138/81 O2 Sat by Pulse 97 Oximetry Medical Decision Making - Medical Decision Making Vitals are stable. CBC CMP unremarkable. Slight bump in creatinine likely related to dehydration secondary to diarrhea, given 1.5 L of fluids. Urinalysis showed positive nitrites, culture pending. CT abdomen and pelvis shows mild uncomplicated colitis which does fit with patient's diarrhea. Given UTI and diarrhea we will treat with Augmentin as this will cover both processes. Patient will be discharged home to follow up with primary care. 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 She will return here for any worsening symptoms. - Lab Data Result diagrams: 08/25/21 11:35 08/25/21 11:35 Lab Results 08/25/21 08/25/21 08/25/21 Range/Units 11:35 11:35 11:35 WBC 5.4 (3.8-10.6) k/uL RBC 4.44 (3.80-5.40) m/uL Hgb 14.0 (11.4-16.0) gm/dL Hct 43.3 (34.0-46.0) % MCV 97.4 (80.0-100.0) fL MCH 31.6 (25.0-35.0) pg MCHC 32.4 (31.0-37.0) g/dL RDW 17.0 H (11.5-15.5) % Plt Count 273 (150-450) k/uL MPV 7.2 Neutrophils % 62 % Lymphocytes % 25 % Monocytes % 7 % Eosinophils % 2 % Basophils % 1 % Neutrophils # 3.4 (1.3-7.7) k/uL Lymphocytes # 1.4 (1.0-4.8) k/uL Monocytes # 0.4 (0-1.0) k/uL Eosinophils # 0.1 (0-0.7) k/uL Basophils # 0.1 (0-0.2) k/uL Anisocytosis Slight Macrocytosis Slight Sodium 137 (137-145) mmol/L Potassium 4.5 (3.5-5.1) mmol/L Chloride 106 (98-107) mmol/L Carbon Dioxide 24 (22-30) mmol/L Anion Gap 7 mmol/L BUN 21 H (7-17) mg/dL Creatinine 1.37 H (0.52-1.04) mg/dL Est GFR (CKD-EPI)AfAm 49 (>60 ml/min/1.73 sqM) Est GFR (CKD-EPI)NonAf 43 (>60 ml/min/1.73 sqM) Glucose 85 (74-99) mg/dL Plasma Lactic Acid Jeremías (0.7-2.0) mmol/L Calcium 9.8 (8.4-10.2) mg/dL Total Bilirubin 0.7 (0.2-1.3) mg/dL AST 50 H (14-36) U/L ALT 37 H (4-34) U/L Alkaline Phosphatase 105 (38-126) U/L Total Protein 7.0 (6.3-8.2) g/dL Albumin 4.2 (3.5-5.0) g/dL Amylase 77 (30-110) U/L Lipase 100 (23-300) U/L Urine Color Yellow Urine Appearance Clear (Clear) Urine pH 5.5 (5.0-8.0) Ur Specific [place] 1.025 (1.001-1.035) Urine Protein Trace H (Negative) Urine Glucose (UA) Negative (Negative) Urine Ketones Trace H (Negative) Urine Blood Negative (Negative) Urine Nitrite Positive H (Negative) Urine Bilirubin Negative (Negative) Urine Urobilinogen <2.0 (<2.0) mg/dL Ur Leukocyte Esterase Trace H (Negative) Urine WBC 5 (0-5) /hpf Ur Squamous Epith Cells 2 (0-4) /hpf Urine Bacteria Many H (None) /hpf Urine Mucus Rare H (None) /hpf 08/25/21 Range/Units 11:35 WBC (3.8-10.6) k/uL RBC (3.80-5.40) m/uL Hgb (11.4-16.0) gm/dL Hct (34.0-46.0) % MCV (80.0-100.0) fL MCH (25.0-35.0) pg MCHC (31.0-37.0) g/dL RDW (11.5-15.5) % Plt Count (150-450) k/uL MPV Neutrophils % % Lymphocytes % % Monocytes % % Eosinophils % % Basophils % % Neutrophils # (1.3-7.7) k/uL Lymphocytes # (1.0-4.8) k/uL Monocytes # (0-1.0) k/uL Eosinophils # (0-0.7) k/uL Basophils # (0-0.2) k/uL Anisocytosis Macrocytosis Sodium (137-145) mmol/L Potassium (3.5-5.1) mmol/L Chloride (98-107) mmol/L Carbon Dioxide (22-30) mmol/L Anion Gap mmol/L BUN (7-17) mg/dL Creatinine (0.52-1.04) mg/dL Est GFR (CKD-EPI)AfAm (>60 ml/min/1.73 sqM) Est GFR (CKD-EPI)NonAf (>60 ml/min/1.73 sqM) Glucose (74-99) mg/dL Plasma Lactic Acid Jeremías 0.7 (0.7-2.0) mmol/L Calcium (8.4-10.2) mg/dL Total Bilirubin (0.2-1.3) mg/dL AST (14-36) U/L ALT (4-34) U/L Alkaline Phosphatase (38-126) U/L Total Protein (6.3-8.2) g/dL Albumin (3.5-5.0) g/dL Amylase (30-110) U/L Lipase (23-300) U/L Urine Color Urine Appearance (Clear) Urine pH (5.0-8.0) Ur Specific [place] (1.001-1.035) Urine Protein (Negative) Urine Glucose (UA) (Negative) Urine Ketones (Negative) Urine Blood (Negative) Urine Nitrite (Negative) Urine Bilirubin (Negative) Urine Urobilinogen (<2.0) mg/dL Ur Leukocyte Esterase (Negative) Urine WBC (0-5) /hpf Ur Squamous Epith Cells (0-4) /hpf Urine Bacteria (None) /hpf Urine Mucus (None) /hpf Disposition Clinical Impression: Abdominal pain, Diarrhea, Colitis Disposition: HOME SELF-CARE Condition: Good Instructions (If sedation given, give patient instructions): Abdominal Pain (ED), Gastroenteritis (ED) Additional Instructions: Take medications as directed. Follow-up with your doctor. Return to the emergency room for any worsening symptoms. Prescriptions: Amoxicillin/Potassium Clav [Augmentin 875-125 Tablet] 1 tab PO Q12HR #14 tab Dicyclomine [Bentyl] 20 mg PO TID PRN #14 tablet PRN Reason: abdominal pain Is patient prescribed a controlled substance at d/c from ED?: No Referrals: Nonstaff,Physician [Primary Care Provider] - 1-2 days Time of Disposition: 13:33
[2021-08-25 11:59] LABS: Anisocytosis Slight; Basophils # (A) 0.1 k/uL (0-0.2); Basophils % (A) 1 %; Eosinophils # (A) 0.1 k/uL (0-0.7); Eosinophils % (A) 2 %; HCT 43.3 % (34.0-46.0); Lymphocytes # (A) 1.4 k/uL (1.0-4.8); Lymphocytes % (A) 25 %; MCH 31.6 pg (25.0-35.0); MCHC 32.4 g/dL (31.0-37.0); MCV 97.4 fL (80.0-100.0); Macrocytosis Slight; Mean Platelet Volume 7.2; Monocytes # (A) 0.4 k/uL (0-1.0); Monocytes % (A) 7 %; Neutrophils # (A) 3.4 k/uL (1.3-7.7); Neutrophils % (A) 62 %; Platelet Count 273 k/uL (150-450); RBC 4.44 m/uL (3.80-5.40); WBC 5.4 k/uL (3.8-10.6)
[2021-08-25 12:12] LABS: Albumin 4.2 g/dL (3.5-5.0); Calcium 9.8 mg/dL (8.4-10.2); Potassium 4.5 mmol/L (3.5-5.1); Total Bilirubin 0.7 mg/dL (0.2-1.3)
[2021-08-25 12:26] LABS: Appearance,Urine Clear (Clear); Bacteria,Urine Many /hpf; Bilirubin,Urine Negative (Negative); Blood,Urine Negative (Negative); Color,Urine Yellow; Glucose,Urine (UA) Negative (Negative); Ketones,Urine Trace (Negative); Leukocyte Esterase,Urine Trace (Negative); Mucus,Urine Rare /hpf; Nitrite,Urine Positive (Negative); PH, Urine 5.5 (5.0-8.0); Protein,Urine Trace (Negative); Specific Gravity,Urine 1.025 (1.001-1.035); Squamous Epithelial Cell,Urine 2 /hpf (0-4); Urobilinogen,Urine <2.0 mg/dL (<2.0); WBC,Urine 5 /hpf (0-5)
--- NOTE | 2021-08-25 12:39 | CT ---
EXAMINATION TYPE: CT abdomen pelvis w con DATE OF EXAM: 08/25/2021 HISTORY: Abd pain, history of diverticulitis. CT DLP: 854.1mGycm Automated Exposure Control for Dose Reduction was Utilized. CONTRAST: CT scan of the abdomen and pelvis is performed with IV Contrast, patient injected with 100 mL of Isov ue 370. COMPARISON: CT abdomen and pelvis March 22, 2021 FINDINGS: LUNG BASES: Suspect stent in the distal right coronary artery similar to prior. LIVER/GB: No significant abnormality is appreciated. PANCREAS: No significant abnormality is seen. SPLEEN: No significant abnormality is seen. ADRENALS: No Significant abnormality is seen. KIDNEYS: Some areas of cortical volume loss lower pole right kidney are present. There is symmetric c ortical medullary uptake and excretion with no hydronephrosis seen bilaterally. Nonobstructing 2 to 3 mm calculus lower pole right kidney axial image 30 is redemonstrated. Smaller calculi on the prior n oncontrast CT less well-seen on this study. BOWEL: Diffuse colonic diverticulosis redemonstrated. No convincing CT evidence for acute diverticuli tis. No suspicious small or large bowel dilatation. Trrt-sw-faisqrsn wall thickening throughout the t ransverse and left colon extending into the sigmoid colon is nonspecific, favor product of poor diste ntion as there is no significant fat stranding. UTERUS/ADNEXA: Uterus is surgically absent or markedly atrophic in appearance. There are persistent c alcifications near the junction of the uterine remnant or remnant cervix in the posterior inferior ma rgin of the bladder coronal image 44 difficult to accurately localize but unchanged in appearance fro m prior CT. LYMPH NODES: No greater than 1cm abdominal or pelvic lymph nodes are appreciated. OSSEOUS STRUCTURES: Postsurgical changes mid to lower lumbar spine redemonstrated with posterior deco mpression and fusion hardware. Artificial disc material L4-L5 and L5-S1 levels redemonstrated. Spinal alignment is straightened. Moderate to severe disc space narrowing with vacuum disc phenomenon and e ndplate sclerosis L1-L2 and L2-L3 levels redemonstrated. OTHER: Moderate mixed plaque of the aorta extends into branch vessels. IMPRESSION: Cannot entirely exclude a mild uncomplicated colitis due to presence of mid to distal abn ormal colonic wall thickening. Otherwise no suspicious new or acute findings are seen.
[2021-08-25] MEDS ORDERED: AMOXIC-POT CLAV 875-125MG 1 EACH TAB PO STA (13:25)
[2021-08-25 13:54] VITALS: BP 132/79; PULSE 63; RESP 18; TEMP 98.6
== END 2021-08-25 13:52 | disposition home or self-care (01) ==
LOC: EC 10:24
DX: K52.9 Noninfective gastroenteritis and colitis, unspecified (principal); I25.2 Old myocardial infarction; K21.9 Gastro-esophageal reflux disease without esophagitis; E78.5 Hyperlipidemia, unspecified; J44.9 Chronic obstructive pulmonary disease, unspecified; M79.7 Fibromyalgia; Z87.891 Personal history of nicotine dependence; Z79.82 Long term (current) use of aspirin; Z79.899 Other long term (current) drug therapy; Z79.51 Long term (current) use of inhaled steroids; Z79.02 Long term (current) use of antithrombotics/antiplatelets
CPT/HCPCS: 36415; 80053; 82150; 83605; 83690; 85025; 81001; 87086; 74177; 99284; 96374; 96375; 96361; J2270; J2405; Q9967

== ENCOUNTER 2021-10-19 12:10 | Emergency (ER) | payer MEDICARE, OTHER ==
[2021-10-19] MEDS ORDERED: KETOROLAC 15 MG/ML 1 ML VIAL IM STA (12:39)
[2021-10-19] MEDS ORDERED: HYDROcodone/APAP 5-325MG 1 EACH TAB PO STA (12:39)
--- NOTE | 2021-10-19 12:42 | ED ---
General Adult HPI - General Chief complaint: Urogenital Stated complaint: side pain Time Seen by Provider: 10/19/21 12:30 Source: patient, RN notes reviewed, old records reviewed Mode of arrival: ambulatory Limitations: no limitations - History of Present Illness Initial comments: This is a well-appearing 60-year-old female presents to the emergency room ambulatory with complaints of right flank pain for 2 months. Patient denies any fevers, nausea vomiting or diarrhea. She states that she seen her neurologist today for her MS and was told to come to the emergency room for evaluation for right flank pain. She states that she had a CAT scan done in January 2021 and was found to have a 6.4 mm renal cyst. She would like to have it evaluated because it is causing her increased pain. She states she has not seen her doctor for this pain over the past two months as she thought it was a muscle spasm. She denies any fevers, hematuria or dysuria. -: month(s) (2) Location: right (flank) Severity scale (1-10): 10 Consistency: constant Improves with: none Worsens with: movement Associated Symptoms: denies other symptoms - Related Data Home Medications Medication Instructions Recorded Confirmed Aspirin EC [Ecotrin Low Dose] 81 mg PO DAILY 12/12/20 10/19/21 Atorvastatin [Lipitor] 40 mg PO HS 12/12/20 10/19/21 Cholecalciferol [Vitamin D3 (25 50 mcg PO DAILY 12/12/20 10/19/21 Mcg = 1000 Iu)] Ferrous Sulfate [Iron (65 MG 325 mg PO DAILY 12/12/20 10/19/21 Elemental)] Fluticasone/Vilanterol [Breo 1 puff INHALATION RT-DAILY 12/12/20 10/19/21 Ellipta 100-25 Mcg Inhaler] Metoprolol Tartrate [Lopressor] 25 mg PO BID 12/12/20 10/19/21 Teriflunomide [Aubagio] 14 mg PO DAILY 12/12/20 10/19/21 Clopidogrel [Plavix] 75 mg PO DAILY 03/22/21 10/19/21 methocarbamoL [Robaxin] 500 mg PO TID 03/22/21 10/19/21 Cyanocobalamin (Vitamin B-12) 5,000 mcg PO DAILY 08/25/21 10/19/21 [Vitamin B12] Gabapentin [Neurontin] 400 mg PO TID 08/25/21 10/19/21 [place]-3 Fatty Acids/Fish Oil [Fish 1 cap PO DAILY 08/25/21 10/19/21 Oil 1,000 mg Softgel] valACYclovir HCL [Valtrex] 1,000 mg PO Q12H 08/25/21 10/19/21 DULoxetine HCL [Cymbalta] 60 mg PO DAILY 10/19/21 10/19/21 Lidocaine 5% Oint [Xylocaine 5% 1 applic TOPICAL DAILY PRN 10/19/21 10/19/21 Oint] Magnesium Oxide [Mag-Ox] 400 mg PO DAILY 10/19/21 10/19/21 Vitamin C/Biotin [Hair, Skin and 2 tab PO DAILY 10/19/21 10/19/21 Nails Chew] Previous Rx's Medication Instructions Recorded QUEtiapine [SEROquel] 50 mg PO HS #30 tab 12/16/20 Allergies Allergy/AdvReac Type Severity Reaction Status Date / Time No Known Allergies Allergy Verified 10/19/21 13:13 Review of Systems ROS Statement: Those systems with pertinent positive or pertinent negative responses have been documented in the HPI. ROS Other: All systems not noted in ROS Statement are negative. Past Medical History Past Medical History: Unable to Obtain, COPD, Fibromyalgia, Myocardial Infarction ([place]), Musculoskeletal Disorder Additional Past Medical History / Comment(s): Drop foot, Multiple sclerosis, Hx of falls, Hx of UTI, Depression and anxiety, HLD, [place] with stent Apr 2019, COPD, anemia, GERD, Fibromyalgia, neuropathy History of Any Multi-Drug Resistant Organisms: ESBL Date of last positivie culture/infection: 08/25/21 ESBL-E.coli MDRO Source:: Urine Past Surgical History: Unable to Obtain, Heart Catheterization With Stent Additional Past Surgical History / Comment(s): cardiac cath, Hx of back fusion that failed and required multiple surgeries Past Anesthesia/Blood Transfusion Reactions: No Reported Reaction Past Psychological History: No Psychological Hx Reported Smoking Status: Former smoker Past Alcohol Use History: None Reported Past Drug Use History: None Reported - Past Family History Mother Family Medical History: No Reported History Father Family Medical History: Cancer Additional Family Medical History / Comment(s): . General Exam Limitations: no limitations General appearance: alert, in no apparent distress Eye exam: Present: normal appearance Respiratory exam: Present: normal lung sounds bilaterally. Absent: respiratory distress, wheezes, rales, rhonchi, stridor, chest wall tenderness, accessory muscle use, decreased breath sounds Cardiovascular Exam: Present: regular rate, normal rhythm, normal heart sounds. Absent: systolic murmur, diastolic murmur, rubs, gallop, clicks, JVD Back exam: Present: normal inspection, full ROM, CVA tenderness (R). Absent: rash noted Neurological exam: Present: alert, oriented X3, normal gait Psychiatric exam: Present: normal affect, normal mood Skin exam: Present: warm, dry, intact, normal color. Absent: rash, cyanosis, diaphoretic Course Vital Signs 10/19/21 10/19/21 12:14 15:23 Temperature 98.5 F 97.9 F Pulse Rate 68 58 L Respiratory 18 20 Rate Blood Pressure 121/74 110/85 O2 Sat by Pulse 100 96 Oximetry Medical Decision Making - Medical Decision Making 60-year-old female presents with complaints of right flank pain for 2 months. Patient denies any fevers, nausea vomiting or diarrhea. She states that she had a CAT scan done in January 2021 and was found to have a 6.4 mm renal cyst and believes it is the cause of her pain. Ultrasound reveals no hydronephrosis or masses seen. No nephrolithiasis. Diminutive kidneys. Possible double collecting system left kidney. There is no mention of kidney stone or renal cysts. CT the abdomen and pelvis completed on 08/25/2021 mentions a nonobstructing 2-3 mm calculus in the lower pole of the right kidney. Urinalysis is negative for blood or signs of infection. Patient states that she is feeling better after the Toradol and [place]. This is likely musculoskeletal in nature as it is worse with movement. She was instructed to follow-up with her primary care doctor return to the emergency room he normally worsening symptoms. Case was discussed with Dr. Jones. - Lab Data Lab Results 10/19/21 Range/Units 12:58 Urine Color Yellow Urine Appearance Clear (Clear) Urine pH 6.0 (5.0-8.0) Ur Specific [place] 1.025 (1.001-1.035) Urine Protein Negative (Negative) Urine Glucose (UA) Negative (Negative) Urine Ketones Negative (Negative) Urine Blood Negative (Negative) Urine Nitrite Negative (Negative) Urine Bilirubin Negative (Negative) Urine Urobilinogen <2.0 (<2.0) mg/dL Ur Leukocyte Esterase Small H (Negative) Urine RBC 1 (0-5) /hpf Urine WBC 3 (0-5) /hpf Ur Squamous Epith Cells 5 H (0-4) /hpf Hyaline Casts 3 H (0-2) /lpf Urine Mucus Rare H (None) /hpf Disposition Clinical Impression: Flank pain, Musculoskeletal pain Disposition: HOME SELF-CARE Condition: Good Instructions (If sedation given, give patient instructions): Flank Pain (ED) Additional Instructions: Today we completed a workup for your right flank pain that he had for the past couple of months. Sometimes we are unable to find the cause of your symptoms in 1 ER visit. The urinalysis and ultrasound is reassuring that there is no evidence of infection or obstruction. At this time it is not certain what is causing your symptoms, please follow-up with the primary care doctor and return to the emergency room if your symptoms get worse or change. Is patient prescribed a controlled substance at d/c from ED?: No Referrals: Khoi Rey MD [Primary Care Provider] - 1-2 days Time of Disposition: 15:04
[2021-10-19 14:05] LABS: Appearance,Urine Clear (Clear); Bilirubin,Urine Negative (Negative); Blood,Urine Negative (Negative); Color,Urine Yellow; Glucose,Urine (UA) Negative (Negative); Hyaline Casts,Urine 3 /lpf (0-2); Ketones,Urine Negative (Negative); Leukocyte Esterase,Urine Small (Negative); Mucus,Urine Rare /hpf; Nitrite,Urine Negative (Negative); Protein,Urine Negative (Negative); RBC,Urine 1 /hpf (0-5); Specific Gravity,Urine 1.025 (1.001-1.035); Squamous Epithelial Cell,Urine 5 /hpf (0-4); Urobilinogen,Urine <2.0 mg/dL (<2.0); WBC,Urine 3 /hpf (0-5)
--- NOTE | 2021-10-19 14:32 | US ---
EXAMINATION TYPE: US renals and bladder DATE OF EXAM: 10/19/2021 COMPARISON: NONE CLINICAL HISTORY: right flank pain. patient has right flank pain EXAM MEASUREMENTS: Right Kidney: 8.3 x 3.1 x 4.8 cm Left Kidney: 8.2 x 4.0 x 4.4 cm Right Kidney: No hydronephrosis or masses seen, small in size Left Kidney: No hydronephrosis or masses seen, small in size, possible double collecting system Bladder: not distended There is no evidence for hydronephrosis at this point in time. No nephrolithiasis is seen. No nic s are identified. The urinary bladder is anechoic. Bilateral ureteral jets are seen. IMPRESSION: 1. Diminutive kidneys. Possible double collecting system left kidney.
[2021-10-19 15:24] VITALS: BP 110/85; PULSE 58; RESP 20; TEMP 97.9
== END 2021-10-19 15:24 | disposition home or self-care (01) ==
LOC: EC 12:10
DX: R10.9 Unspecified abdominal pain (principal); J44.9 Chronic obstructive pulmonary disease, unspecified; I25.2 Old myocardial infarction; M79.7 Fibromyalgia; E78.5 Hyperlipidemia, unspecified; K21.9 Gastro-esophageal reflux disease without esophagitis; Z79.82 Long term (current) use of aspirin; Z79.899 Other long term (current) drug therapy; Z79.51 Long term (current) use of inhaled steroids; Z79.02 Long term (current) use of antithrombotics/antiplatelets
CPT/HCPCS: 81001; 76770; 99284; 96372; J1885

== ENCOUNTER 2021-12-05 16:54 | Emergency (ER) | payer MEDICARE, OTHER ==
[2021-12-05] MEDS ORDERED: HYDROmorphone 1 MG/ML 1 ML SYRINGE IVP STA (22:04)
[2021-12-05] MEDS ORDERED: FAMOTIDINE 20 MG/2 ML VIAL IV STA (22:04)
--- NOTE | 2021-12-05 22:07 | ED ---
General Adult HPI - General Chief complaint: Abdominal Pain Stated complaint: abd pain Time Seen by Provider: 12/05/21 21:37 Source: patient, RN notes reviewed Mode of arrival: ambulatory Limitations: no limitations - History of Present Illness Initial comments: Patient is a pleasant 61-year-old female presenting to the emergency Department with abdominal discomfort. Onset of symptoms was around a week ago. Discomfort is mostly midline. Patient did have computed tomography scan done 4 days ago however symptoms have worsened since that time. No nausea vomiting. Patient has constipation however that is somewhat chronic. No fevers. - Related Data Home Medications Medication Instructions Recorded Confirmed Aspirin EC [Ecotrin Low Dose] 81 mg PO DAILY 12/12/20 10/19/21 Atorvastatin [Lipitor] 40 mg PO HS 12/12/20 10/19/21 Cholecalciferol [Vitamin D3 (25 50 mcg PO DAILY 12/12/20 10/19/21 Mcg = 1000 Iu)] Ferrous Sulfate [Iron (65 MG 325 mg PO DAILY 12/12/20 10/19/21 Elemental)] Fluticasone/Vilanterol [Breo 1 puff INHALATION RT-DAILY 12/12/20 10/19/21 Ellipta 100-25 Mcg Inhaler] Metoprolol Tartrate [Lopressor] 25 mg PO BID 12/12/20 10/19/21 Teriflunomide [Aubagio] 14 mg PO DAILY 12/12/20 10/19/21 Clopidogrel [Plavix] 75 mg PO DAILY 03/22/21 10/19/21 methocarbamoL [Robaxin] 500 mg PO TID 03/22/21 10/19/21 Cyanocobalamin (Vitamin B-12) 5,000 mcg PO DAILY 08/25/21 10/19/21 [Vitamin B12] Gabapentin [Neurontin] 400 mg PO TID 08/25/21 10/19/21 [place]-3 Fatty Acids/Fish Oil [Fish 1 cap PO DAILY 08/25/21 10/19/21 Oil 1,000 mg Softgel] valACYclovir HCL [Valtrex] 1,000 mg PO Q12H 08/25/21 10/19/21 DULoxetine HCL [Cymbalta] 60 mg PO DAILY 10/19/21 10/19/21 Lidocaine 5% Oint [Xylocaine 5% 1 applic TOPICAL DAILY PRN 10/19/21 10/19/21 Oint] Magnesium Oxide [Mag-Ox] 400 mg PO DAILY 10/19/21 10/19/21 Vitamin C/Biotin [Hair, Skin and 2 tab PO DAILY 10/19/21 10/19/21 Nails Chew] Previous Rx's Medication Instructions Recorded QUEtiapine [SEROquel] 50 mg PO HS #30 tab 12/16/20 Amoxic-Pot Clav 875-125Mg 1 tab PO Q12HR 1 Days #18 tab 12/05/21 [Augmentin 875-125] Allergies Allergy/AdvReac Type Severity Reaction Status Date / Time No Known Allergies Allergy Verified 12/05/21 18:21 Review of Systems ROS Statement: Those systems with pertinent positive or pertinent negative responses have been documented in the HPI. ROS Other: All systems not noted in ROS Statement are negative. Constitutional: Denies: fever Eyes: Denies: eye pain ENT: Denies: ear pain Respiratory: Denies: cough, dyspnea Cardiovascular: Denies: chest pain Endocrine: Denies: fatigue Gastrointestinal: Reports: as per HPI, abdominal pain, constipation. Denies: nausea, vomiting, diarrhea Genitourinary: Denies: dysuria Musculoskeletal: Denies: back pain Skin: Denies: rash Neurological: Denies: weakness Past Medical History Past Medical History: Unable to Obtain, COPD, Fibromyalgia, Myocardial Infarction ([place]), Musculoskeletal Disorder Additional Past Medical History / Comment(s): Drop foot, Multiple sclerosis, Hx of falls, Hx of UTI, Depression and anxiety, HLD, [place] with stent Apr 2019, COPD, anemia, GERD, Fibromyalgia, neuropathy History of Any Multi-Drug Resistant Organisms: ESBL Date of last positivie culture/infection: 08/25/21 ESBL-E.coli MDRO Source:: Urine Past Surgical History: Unable to Obtain, Heart Catheterization With Stent Additional Past Surgical History / Comment(s): cardiac cath, Hx of back fusion that failed and required multiple surgeries Past Anesthesia/Blood Transfusion Reactions: No Reported Reaction Past Psychological History: No Psychological Hx Reported Smoking Status: Former smoker Past Alcohol Use History: None Reported Past Drug Use History: None Reported - Past Family History Mother Family Medical History: No Reported History Father Family Medical History: Cancer Additional Family Medical History / Comment(s): . General Exam Limitations: no limitations General appearance: alert, in no apparent distress Head exam: Present: normocephalic Eye exam: Present: normal appearance Neck exam: Present: normal inspection Respiratory exam: Present: normal lung sounds bilaterally Cardiovascular Exam: Present: regular rate, normal rhythm GI/Abdominal exam: Present: soft, tenderness (Mild to moderate tenderness more midline than lateral.), normal bowel sounds. Absent: distended, guarding, rebound, rigid, pulsatile mass Extremities exam: Present: normal inspection Back exam: Present: normal inspection Neurological exam: Present: alert Psychiatric exam: Present: normal affect, normal mood Skin exam: Present: normal color Course Vital Signs 12/05/21 12/05/21 18:21 22:24 Temperature 97.7 F Pulse Rate 81 97 Respiratory 16 20 Rate Blood Pressure 123/66 111/69 O2 Sat by Pulse 97 99 Oximetry Medical Decision Making - Medical Decision Making Patient reevaluated and resting comfortably in bed. Patient updated on results and need for follow-up. - Lab Data Result diagrams: 12/05/21 22:40 12/05/21 22:40 Lab Results 12/05/21 12/05/21 12/05/21 Range/Units 22:40 22:40 22:40 WBC 10.6 (3.8-10.6) k/uL RBC 3.75 L (3.80-5.40) m/uL Hgb 12.6 (11.4-16.0) gm/dL Hct 39.4 (34.0-46.0) % MCV 105.0 H (80.0-100.0) fL MCH 33.5 (25.0-35.0) pg MCHC 31.9 (31.0-37.0) g/dL RDW 14.9 (11.5-15.5) % Plt Count 197 (150-450) k/uL MPV 7.7 Neutrophils % 80 % Lymphocytes % 10 % Monocytes % 7 % Eosinophils % 0 % Basophils % 1 % Neutrophils # 8.5 H (1.3-7.7) k/uL Lymphocytes # 1.1 (1.0-4.8) k/uL Monocytes # 0.8 (0-1.0) k/uL Eosinophils # 0.0 (0-0.7) k/uL Basophils # 0.1 (0-0.2) k/uL Macrocytosis Moderate PT (9.0-12.0) sec INR (<1.2) APTT (22.0-30.0) sec Sodium 136 L (137-145) mmol/L Potassium 3.6 (3.5-5.1) mmol/L Chloride 104 (98-107) mmol/L Carbon Dioxide 27 (22-30) mmol/L Anion Gap 5 mmol/L BUN 16 (7-17) mg/dL Creatinine 1.04 (0.52-1.04) mg/dL Est GFR (CKD-EPI)AfAm 68 (>60 ml/min/1.73 sqM) Est GFR (CKD-EPI)NonAf 59 (>60 ml/min/1.73 sqM) Glucose 91 (74-99) mg/dL Calcium 8.7 (8.4-10.2) mg/dL Total Bilirubin 0.8 (0.2-1.3) mg/dL AST 37 H (14-36) U/L ALT 34 (4-34) U/L Alkaline Phosphatase 103 (38-126) U/L Total Protein 6.5 (6.3-8.2) g/dL Albumin 3.7 (3.5-5.0) g/dL Amylase 66 (30-110) U/L Lipase 34 (23-300) U/L Urine Color Yellow Urine Appearance Cloudy H (Clear) Urine pH 6.0 (5.0-8.0) Ur Specific [place] 1.027 (1.001-1.035) Urine Protein 1+ H (Negative) Urine Glucose (UA) Negative (Negative) Urine Ketones 1+ H (Negative) Urine Blood Negative (Negative) Urine Nitrite Positive H (Negative) Urine Bilirubin Negative (Negative) Urine Urobilinogen <2.0 (<2.0) mg/dL Ur Leukocyte Esterase Large H (Negative) Urine RBC 2 (0-5) /hpf Urine WBC 55 H (0-5) /hpf Ur Squamous Epith Cells 3 (0-4) /hpf Urine Bacteria Moderate H (None) /hpf Hyaline Casts 1 (0-2) /lpf Urine Mucus Rare H (None) /hpf 12/05/21 Range/Units 22:40 WBC (3.8-10.6) k/uL RBC (3.80-5.40) m/uL Hgb (11.4-16.0) gm/dL Hct (34.0-46.0) % MCV (80.0-100.0) fL MCH (25.0-35.0) pg MCHC (31.0-37.0) g/dL RDW (11.5-15.5) % Plt Count (150-450) k/uL MPV Neutrophils % % Lymphocytes % % Monocytes % % Eosinophils % % Basophils % % Neutrophils # (1.3-7.7) k/uL Lymphocytes # (1.0-4.8) k/uL Monocytes # (0-1.0) k/uL Eosinophils # (0-0.7) k/uL Basophils # (0-0.2) k/uL Macrocytosis PT 9.8 (9.0-12.0) sec INR 0.9 (<1.2) APTT 23.7 (22.0-30.0) sec Sodium (137-145) mmol/L Potassium (3.5-5.1) mmol/L Chloride (98-107) mmol/L Carbon Dioxide (22-30) mmol/L Anion Gap mmol/L BUN (7-17) mg/dL Creatinine (0.52-1.04) mg/dL Est GFR (CKD-EPI)AfAm (>60 ml/min/1.73 sqM) Est GFR (CKD-EPI)NonAf (>60 ml/min/1.73 sqM) Glucose (74-99) mg/dL Calcium (8.4-10.2) mg/dL Total Bilirubin (0.2-1.3) mg/dL AST (14-36) U/L ALT (4-34) U/L Alkaline Phosphatase (38-126) U/L Total Protein (6.3-8.2) g/dL Albumin (3.5-5.0) g/dL Amylase (30-110) U/L Lipase (23-300) U/L Urine Color Urine Appearance (Clear) Urine pH (5.0-8.0) Ur Specific [place] (1.001-1.035) Urine Protein (Negative) Urine Glucose (UA) (Negative) Urine Ketones (Negative) Urine Blood (Negative) Urine Nitrite (Negative) Urine Bilirubin (Negative) Urine Urobilinogen (<2.0) mg/dL Ur Leukocyte Esterase (Negative) Urine RBC (0-5) /hpf Urine WBC (0-5) /hpf Ur Squamous Epith Cells (0-4) /hpf Urine Bacteria (None) /hpf Hyaline Casts (0-2) /lpf Urine Mucus (None) /hpf - Radiology Data Radiology results: image reviewed (Computed tomography scan of the abdomen and pelvis does show some diverticulitis starting ) Disposition Clinical Impression: Diverticulitis Disposition: HOME SELF-CARE Condition: Stable Instructions (If sedation given, give patient instructions): Diverticulitis (ED) Additional Instructions: Prescription has been sent to pharmacy. Please do follow-up with primary care physician in the next day or 2 for recheck. Return for fevers, increased pain, worsening or changing symptoms or other concerns. Prescriptions: Amoxic-Pot Clav 875-125Mg [Augmentin 875-125] 1 tab PO Q12HR 1 Days #18 tab Is patient prescribed a controlled substance at d/c from ED?: No Referrals: Gricelda Arora [Primary Care Provider] - 1-2 days Time of Disposition: 23:56
[2021-12-05 22:42] VITALS: RESP 20
[2021-12-05 22:56] LABS: Basophils # (A) 0.1 k/uL (0-0.2); Basophils % (A) 1 %; Eosinophils % (A) 0 %; HCT 39.4 % (34.0-46.0); HGB 12.6 gm/dL (11.4-16.0); Lymphocytes # (A) 1.1 k/uL (1.0-4.8); Lymphocytes % (A) 10 %; MCH 33.5 pg (25.0-35.0); MCHC 31.9 g/dL (31.0-37.0); Macrocytosis Moderate; Mean Platelet Volume 7.7; Monocytes # (A) 0.8 k/uL (0-1.0); Monocytes % (A) 7 %; Neutrophils # (A) 8.5 k/uL (1.3-7.7); Neutrophils % (A) 80 %; Platelet Count 197 k/uL (150-450); RBC 3.75 m/uL (3.80-5.40); RDW 14.9 % (11.5-15.5); WBC 10.6 k/uL (3.8-10.6)
[2021-12-05 23:00] LABS: Appearance,Urine Cloudy (Clear); Bacteria,Urine Moderate /hpf; Bilirubin,Urine Negative (Negative); Blood,Urine Negative (Negative); Color,Urine Yellow; Glucose,Urine (UA) Negative (Negative); Hyaline Casts,Urine 1 /lpf (0-2); Ketones,Urine 1+ (Negative); Leukocyte Esterase,Urine Large (Negative); Mucus,Urine Rare /hpf; Nitrite,Urine Positive (Negative); Protein,Urine 1+ (Negative); RBC,Urine 2 /hpf (0-5); Specific Gravity,Urine 1.027 (1.001-1.035); Squamous Epithelial Cell,Urine 3 /hpf (0-4); Urobilinogen,Urine <2.0 mg/dL (<2.0); WBC,Urine 55 /hpf (0-5)
[2021-12-05 23:05] LABS: INR 0.9 (<1.2); Partial Thromboplastin Time 23.7 sec (22.0-30.0); Prothrombin Time 9.8 sec (9.0-12.0)
[2021-12-05 23:24] LABS: Albumin 3.7 g/dL (3.5-5.0); Calcium 8.7 mg/dL (8.4-10.2); Potassium 3.6 mmol/L (3.5-5.1); Total Bilirubin 0.8 mg/dL (0.2-1.3); Total Protein 6.5 g/dL (6.3-8.2)
--- NOTE | 2021-12-05 23:47 | CT ---
EXAMINATION TYPE: CT abdomen pelvis w con DATE OF EXAM: 12/05/2021 COMPARISON: 08/25/2021 HISTORY: pain CT DLP: 856.4 mGycm Automated exposure control for dose reduction was used. CONTRAST: Performed with IV Contrast, patient injected with 100 mL of Isovue 300. Images obtained from the diaphragm to the floor the pelvis with IV contrast. The lung bases are clear. There is no pleural effusion. Heart size is normal. There is no pericardial effusion. There is small hiatal hernia. Liver spleen and stomach appear intact. The bile ducts are n ot dilated. Gallbladder is intact. There is no evidence of pancreatic mass. There is no adrenal mass. Kidneys show satisfactory contrast opacification. There is no hydronephrosi s. Ureters are not dilated. There is no retroperitoneal adenopathy. There is 2 mm calculus lower pole right kidney. There is no retroperitoneal adenopathy. There is calcification at the base of the urin erich bladder that could be urethral calculus. Urinary bladder is almost empty. There is no inguinal he rnia. There are numerous diverticula in the large bowel throughout the colon. There is some fat stranding a round the mid sigmoid colon. No definite extraluminal fluid collection. There is posterior fusion surgery in the lumbar spine. No compression fracture. I see no focal bone d estruction. The bony pelvis is intact. The hip joints are intact. IMPRESSION: Extensive colonic diverticulosis. There is some focal diverticulitis in the mid sigmoid colon which i s a change compared to old exam. No drainable fluid collection. Multilevel spinal surgery with laminectomy defect. No fracture.
[2021-12-05] MEDS ORDERED: AMOXIC-POT CLAV 875MG STARTER PACK 2 TAB BTL PO STA (23:55)
[2021-12-06 00:37] VITALS: BP 119/58; PULSE 89; TEMP 97.8
== END 2021-12-06 00:37 | disposition home or self-care (01) ==
LOC: EC 16:54
DX: K57.92 Diverticulitis of intestine, part unspecified, without perforation or abscess without bleeding (principal); Z87.891 Personal history of nicotine dependence; J44.9 Chronic obstructive pulmonary disease, unspecified; I25.2 Old myocardial infarction
CPT/HCPCS: 36415; 80053; 82150; 83690; 85025; 85610; 85730; 81001; 87086; 74177; 99284; 96374; 96375; J1170; Q9967

== ENCOUNTER 2022-01-11 10:18 | Emergency (ER) | payer MEDICARE, OTHER ==
[2022-01-11 10:34] VITALS: TEMP 97.5
[2022-01-11] MEDS ORDERED: SODIUM CHLORIDE 0.9% 1,000 ML IV STA (10:53)
[2022-01-11] MEDS ORDERED: MORPHINE SULFATE 4 MG/ML SYRINGE IV STA (10:53)
[2022-01-11] MEDS ORDERED: ONDANSETRON 4 MG/2 ML VIAL IVP STA (10:58)
--- NOTE | 2022-01-11 11:07 | ED ---
General Adult HPI - General Chief complaint: Back Pain/Injury Stated complaint: back pain Time Seen by Provider: 01/11/22 10:36 Source: patient Mode of arrival: ambulatory Limitations: no limitations - History of Present Illness Initial comments: This 61-year-old female with a past medical history of COPD, fibromyalgia, [place], musculoskeletal disorder presents emergency Department with right side pain radiating to right upper quadrant since August. Patient states since August she has had this pain episodically come and go, however she states over the last couple of weeks it seems to be worsening. Patient states she has been taking trazodone along with Morral which seems to help the pain. Patient states the pain is worse with movements and is sharp in nature. Patient states it radiates from her right mid side to her right upper quadrant of her abdomen. Patient states the pain is 10/10. Patient denies any chest pain, shortness of breath, nausea, vomiting, change in bowel or bladder, change in appetite, lightheadedness, dizziness, fever, rash, neck pain, vertebrae pain, change in vision. Patient denies any lower back pain, saddle anesthesia, bowel or bladder incontinence/retention. Patient states she did have 2 vertebrae rupturing 2008 which she did have surgery for that is closely being watched. - Related Data Home Medications Medication Instructions Recorded Confirmed Aspirin EC [Ecotrin Low Dose] 81 mg PO DAILY 12/12/20 01/11/22 Atorvastatin [Lipitor] 40 mg PO HS 12/12/20 01/11/22 Cholecalciferol [Vitamin D3 (25 50 mcg PO DAILY 12/12/20 01/11/22 Mcg = 1000 Iu)] Fluticasone/Vilanterol [Breo 1 puff INHALATION RT-DAILY 12/12/20 01/11/22 Ellipta 100-25 Mcg Inhaler] Metoprolol Tartrate [Lopressor] 25 mg PO BID 12/12/20 01/11/22 Teriflunomide [Aubagio] 14 mg PO DAILY 12/12/20 01/11/22 Clopidogrel [Plavix] 75 mg PO DAILY 03/22/21 01/11/22 methocarbamoL [Robaxin] 500 mg PO TID 03/22/21 01/11/22 Cyanocobalamin (Vitamin B-12) 5,000 mcg PO DAILY 08/25/21 01/11/22 [Vitamin B12] Gabapentin [Neurontin] 400 mg PO TID 08/25/21 01/11/22 Everson-3 Fatty Acids/Fish Oil [Fish 1 cap PO DAILY 08/25/21 01/11/22 Oil 1,000 mg Softgel] Lidocaine 5% Oint [Xylocaine 5% 1 applic TOPICAL DAILY PRN 10/19/21 01/11/22 Oint] Magnesium Oxide [Mag-Ox] 400 mg PO DAILY 10/19/21 01/11/22 Ascorbic Acid [Vitamin C] 500 mg PO DAILY 01/11/22 01/11/22 Cyclobenzaprine [Flexeril] 5 mg PO BID PRN 01/11/22 01/11/22 DULoxetine HCL [Cymbalta] 30 mg PO BID 01/11/22 01/11/22 Folic Acid 0.4 mg PO DAILY 01/11/22 01/11/22 Multivitamins, Thera [Multivitamin 1 tab PO DAILY 01/11/22 01/11/22 (formulary)] Vitamin E 400 unit PO DAILY 01/11/22 01/11/22 calcitrioL [Calcitriol] 0.25 mcg PO SA 01/11/22 01/11/22 tiZANidine [Zanaflex] 4 mg PO TID PRN 01/11/22 01/11/22 Previous Rx's Medication Instructions Recorded QUEtiapine [SEROquel] 50 mg PO HS #30 tab 12/16/20 Allergies Allergy/AdvReac Type Severity Reaction Status Date / Time No Known Allergies Allergy Verified 01/11/22 11:38 Review of Systems ROS Statement: Those systems with pertinent positive or pertinent negative responses have been documented in the HPI. ROS Other: All systems not noted in ROS Statement are negative. Past Medical History Past Medical History: Unable to Obtain, COPD, Fibromyalgia, Myocardial Infar ction (FL), Musculoskeletal Disorder Additional Past Medical History / Comment(s): Drop foot, Multiple sclerosis, Hx of falls, Hx of UTI, Depression and anxiety, HLD, [place] with stent Apr 2019, COPD, anemia, GERD, Fibromyalgia, neuropathy History of Any Multi-Drug Resistant Organisms: ESBL Date of last positivie culture/infection: 12/05/21 ESBL-E.coli MDRO Source:: Urine Past Surgical History: Unable to Obtain, Heart Catheterization With Stent Additional Past Surgical History / Comment(s): cardiac cath, Hx of back fusion that failed and required multiple surgeries Past Anesthesia/Blood Transfusion Reactions: No Reported Reaction Past Psychological History: No Psychological Hx Reported Smoking Status: Former smoker Past Alcohol Use History: None Reported Past Drug Use History: None Reported - Past Family History Mother Family Medical History: No Reported History Father Family Medical History: Cancer Additional Family Medical History / Comment(s): . General Exam Limitations: no limitations General appearance: alert, in no apparent distress Head exam: Present: atraumatic, normocephalic, normal inspection Eye exam: Present: normal appearance, PERRL, EOMI. Absent: scleral icterus, conjunctival injection, periorbital swelling Pupils: Present: normal accommodation ENT exam: Present: normal exam, mucous membranes moist Neck exam: Present: normal inspection, full ROM. Absent: tenderness, meningismus, lymphadenopathy Respiratory exam: Present: normal lung sounds bilaterally. Absent: respiratory distress, wheezes, rales, rhonchi, stridor, chest wall tenderness Cardiovascular Exam: Present: regular rate, normal rhythm, normal heart sounds. Absent: systolic murmur, diastolic murmur, rubs, gallop, clicks GI/Abdominal exam: Present: soft, tenderness (Tenderness to right upper quadrant to palpation), normal bowel sounds. Absent: distended, guarding, rebound, rigid Extremities exam: Present: normal inspection, full ROM, normal capillary refill. Absent: tenderness, pedal edema, joint swelling, calf tenderness Back exam: Present: normal inspection (Vertical healed scars on mid and lower back. No erythema, warmth, swelling present), full ROM. Absent: CVA tenderness (R), CVA tenderness (L), paraspinal tenderness, vertebral tenderness Neurological exam: Present: alert, oriented X3, CN II-XII intact, normal gait Psychiatric exam: Present: normal affect, normal mood Skin exam: Present: warm, dry, intact, normal color. Absent: rash Course Vital Signs 01/11/22 01/11/22 01/11/22 10:29 11:27 11:58 Temperature 97.5 F L Pulse Rate 74 95 65 Respiratory 18 20 22 Rate Blood Pressure 117/71 142/80 111/74 O2 Sat by Pulse 100 95 100 Oximetry Medical Decision Making - Medical Decision Making Patient's labs without any leukocytosis. Coagulation unremarkable. Chemistry with sodium 134, BUN 21, creatinine 1.22. AST 44. 1 L fluids given. Urine with small leukocyte esterase. Patient states she does have a follow-up appointment with Dr. Thornton early next week. Ultrasound gallbladder impression: Right kidney atrophic with possible stone in the lower pole equal 0.5 cm; gallbladder without any evidence of stones. After receiving fluids, Zofran and pain medication, patient states her pain did decrease. Patient currently does have trazodone at home which I instructed her to continue taking as directed. Patient instructed to follow up with her primary care provider next 1-2 days. Strict return precautions are discussed. Patient verbally agreed to plan. Patient sent home in stable condition. Case discussed in detail with my attending, Dr. Jones - Lab Data Result diagrams: 01/11/22 11:14 01/11/22 11:14 Lab Results 01/11/22 01/11/22 01/11/22 Range/Units 11:14 11:14 11:14 WBC 4.6 (3.8-10.6) k/uL RBC 3.49 L (3.80-5.40) m/uL Hgb 11.6 (11.4-16.0) gm/dL Hct 36.4 (34.0-46.0) % MCV 104.5 H (80.0-100.0) fL MCH 33.3 (25.0-35.0) pg MCHC 31.9 (31.0-37.0) g/dL RDW 13.9 (11.5-15.5) % Plt Count 195 (150-450) k/uL MPV 7.9 Neutrophils % (Manual) 46 % Lymphocytes % (Manual) 37 % Monocytes % (Manual) 14 % Eosinophils % (Manual) 3 % Neutrophils # (Manual) 2.12 (1.3-7.7) k/uL Lymphocytes # (Manual) 1.70 (1.0-4.8) k/uL Monocytes # (Manual) 0.64 (0-1.0) k/uL Eosinophils # (Manual) 0.14 (0-0.7) k/uL Nucleated RBCs 0 (0-0) /100 WBC Manual Slide Review Performed Macrocytosis Slight PT (9.0-12.0) sec INR (<1.2) APTT (22.0-30.0) sec Sodium 134 L (137-145) mmol/L Potassium 4.7 (3.5-5.1) mmol/L Chloride 106 (98-107) mmol/L Carbon Dioxide 25 (22-30) mmol/L Anion Gap 3 mmol/L BUN 21 H (7-17) mg/dL Creatinine 1.22 H (0.52-1.04) mg/dL Est GFR (CKD-EPI)AfAm 56 (>60 ml/min/1.73 sqM) Est GFR (CKD-EPI)NonAf 49 (>60 ml/min/1.73 sqM) Glucose 83 (74-99) mg/dL Plasma Lactic Acid Jeremías (0.7-2.0) mmol/L Calcium 8.9 (8.4-10.2) mg/dL Total Bilirubin 0.6 (0.2-1.3) mg/dL AST 44 H (14-36) U/L ALT 31 (4-34) U/L Alkaline Phosphatase 88 (38-126) U/L Total Protein 6.3 (6.3-8.2) g/dL Albumin 3.7 (3.5-5.0) g/dL Amylase 80 (30-110) U/L Lipase 82 (23-300) U/L Urine Color Yellow Urine Appearance Clear (Clear) Urine pH 6.0 (5.0-8.0) Ur Specific Bryant 1.027 (1.001-1.035) Urine Protein Trace H (Negative) Urine Glucose (UA) Negative (Negative) Urine Ketones Negative (Negative) Urine Blood Negative (Negative) Urine Nitrite Negative (Negative) Urine Bilirubin Negative (Negative) Urine Urobilinogen <2.0 (<2.0) mg/dL Ur Leukocyte Esterase Small H (Negative) Urine RBC 1 (0-5) /hpf Urine WBC 2 (0-5) /hpf Ur Squamous Epith Cells 7 H (0-4) /hpf Hyaline Casts 23 H (0-2) /lpf Urine Mucus Rare H (None) /hpf 01/11/22 01/11/22 Range/Units 11:14 11:14 WBC (3.8-10.6) k/uL RBC (3.80-5.40) m/uL Hgb (11.4-16.0) gm/dL Hct (34.0-46.0) % MCV (80.0-100.0) fL MCH (25.0-35.0) pg MCHC (31.0-37.0) g/dL RDW (11.5-15.5) % Plt Count (150-450) k/uL MPV Neutrophils % (Manual) % Lymphocytes % (Manual) % Monocytes % (Manual) % Eosinophils % (Manual) % Neutrophils # (Manual) (1.3-7.7) k/uL Lymphocytes # (Manual) (1.0-4.8) k/uL Monocytes # (Manual) (0-1.0) k/uL Eosinophils # (Manual) (0-0.7) k/uL Nucleated RBCs (0-0) /100 WBC Manual Slide Review Macrocytosis PT 10.1 (9.0-12.0) sec INR 0.9 (<1.2) APTT 25.1 (22.0-30.0) sec Sodium (137-145) mmol/L Potassium (3.5-5.1) mmol/L Chloride (98-107) mmol/L Carbon Dioxide (22-30) mmol/L Anion Gap mmol/L BUN (7-17) mg/dL Creatinine (0.52-1.04) mg/dL Est GFR (CKD-EPI)AfAm (>60 ml/min/1.73 sqM) Est GFR (CKD-EPI)NonAf (>60 ml/min/1.73 sqM) Glucose (74-99) mg/dL Plasma Lactic Acid Jeremías 0.6 L (0.7-2.0) mmol/L Calcium (8.4-10.2) mg/dL Total Bilirubin (0.2-1.3) mg/dL AST (14-36) U/L ALT (4-34) U/L Alkaline Phosphatase (38-126) U/L Total Protein (6.3-8.2) g/dL Albumin (3.5-5.0) g/dL Amylase (30-110) U/L Lipase (23-300) U/L Urine Color Urine Appearance (Clear) Urine pH (5.0-8.0) Ur Specific Bryant (1.001-1.035) Urine Protein (Negative) Urine Glucose (UA) (Negative) Urine Ketones (Negative) Urine Blood (Negative) Urine Nitrite (Negative) Urine Bilirubin (Negative) Urine Urobilinogen (<2.0) mg/dL Ur Leukocyte Esterase (Negative) Urine RBC (0-5) /hpf Urine WBC (0-5) /hpf Ur Squamous Epith Cells (0-4) /hpf Hyaline Casts (0-2) /lpf Urine Mucus (None) /hpf Disposition Clinical Impression: RUQ pain, Nephrolithiasis Disposition: HOME SELF-CARE Condition: Stable Instructions (If sedation given, give patient instructions): Abdominal Pain (ED) Additional Instructions: Please follow-up with her primary care provider next 1-2 days. Follow-up with at your scheduled appointment next week. Return to the emergency depar tment with any new, worsening, or concerning symptoms. Is patient prescribed a controlled substance at d/c from ED?: No Referrals: Gricelda Arora [Primary Care Provider] - 1-2 days Time of Disposition: 12:50
[2022-01-11 11:31] LABS: Appearance,Urine Clear (Clear); Bilirubin,Urine Negative (Negative); Blood,Urine Negative (Negative); Color,Urine Yellow; Glucose,Urine (UA) Negative (Negative); Hyaline Casts,Urine 23 /lpf (0-2); Ketones,Urine Negative (Negative); Leukocyte Esterase,Urine Small (Negative); Mucus,Urine Rare /hpf; Nitrite,Urine Negative (Negative); Protein,Urine Trace (Negative); RBC,Urine 1 /hpf (0-5); Specific Gravity,Urine 1.027 (1.001-1.035); Squamous Epithelial Cell,Urine 7 /hpf (0-4); Urobilinogen,Urine <2.0 mg/dL (<2.0); WBC,Urine 2 /hpf (0-5)
[2022-01-11 11:34] LABS: INR 0.9 (<1.2); Partial Thromboplastin Time 25.1 sec (22.0-30.0); Prothrombin Time 10.1 sec (9.0-12.0)
[2022-01-11 11:40] LABS: Albumin 3.7 g/dL (3.5-5.0); Calcium 8.9 mg/dL (8.4-10.2); Potassium 4.7 mmol/L (3.5-5.1); Total Bilirubin 0.6 mg/dL (0.2-1.3); Total Protein 6.3 g/dL (6.3-8.2)
[2022-01-11 12:00] LABS: HCT 36.4 % (34.0-46.0); HGB 11.6 gm/dL (11.4-16.0); MCH 33.3 pg (25.0-35.0); MCHC 31.9 g/dL (31.0-37.0); MCV 104.5 fL (80.0-100.0); Macrocytosis Slight; Mean Platelet Volume 7.9; Platelet Count 195 k/uL (150-450); RBC 3.49 m/uL (3.80-5.40); RDW 13.9 % (11.5-15.5); WBC 4.6 k/uL (3.8-10.6)
--- NOTE | 2022-01-11 12:09 | US ---
EXAMINATION TYPE: US gallbladder DATE OF EXAM: 01/11/2022 COMPARISON: NONE CLINICAL HISTORY: RUQ pain. RUQ pain, back pain EXAM MEASUREMENTS: Liver Length: 13.1 cm Gallbladder Wall: 0.3 cm CBD: 0.6 cm Right Kidney: 8.4 x 4.6 x 2.9 cm Pancreas: Obscured by bowel gas Liver: wnl Gallbladder: no evidence of stones Evidence for sonographic Goodwin's sign: no CBD: upper limits of normal Right Kidney: atrophic,possible stone lower pole = 0.5cm IMPRESSION: Atrophic right kidney. Probable nephrolithiasis.
[2022-01-11 12:31] LABS: Eosinophils # (M) 0.14 k/uL (0-0.7); Monocytes # (M) 0.64 k/uL (0-1.0); Neutrophils # (M) 2.12 k/uL (1.3-7.7); Neutrophils % (M) 46 %; Nucleated Red Blood Cells 0 /100 WBC (0-0); Total Cells Counted 100
[2022-01-11] MEDS ORDERED: KETOROLAC 15 MG/ML 1 ML VIAL IVP STA (13:05)
[2022-01-11 13:18] VITALS: BP 141/86; PULSE 56; RESP 18
== END 2022-01-11 13:18 | disposition home or self-care (01) ==
LOC: EC 10:18
DX: N20.0 Calculus of kidney (principal); J44.9 Chronic obstructive pulmonary disease, unspecified; I25.2 Old myocardial infarction; Z87.891 Personal history of nicotine dependence
CPT/HCPCS: 36415; 80053; 82150; 83605; 83690; 85025; 85610; 85730; 81001; 76705; 99284; 96374; 96375; 96361; J2270; J2405; J1885

== ENCOUNTER → 2024-03-24 | Outpatient (CLI) | payer MEDICARE, OTHER ==
[2024-03-24 09:39] LABS: HCT 42.4 % (34.0-46.0); HGB 12.7 gm/dL (11.4-16.0); MCH 31.1 pg (25.0-35.0); MCV 103.8 fL (80.0-100.0); Macrocytosis Slight; Mean Platelet Volume 8.3; Platelet Count 162 k/uL (150-450); RBC 4.08 m/uL (3.80-5.40); RDW 13.7 % (11.5-15.5); WBC 5.6 k/uL (3.8-10.6)
[2024-03-24 15:36] LABS: Appearance,Urine Clear (Clear); Bilirubin,Urine Negative (Negative); Blood,Urine Negative (Negative); Color,Urine Yellow (Yellow); Ketones,Urine Negative (Negative); Nitrite,Urine Negative (Negative); Specific Gravity,Urine 1.018 (1.001-1.030); Urobilinogen,Urine 0.2 E.U./DL
[2024-03-24 15:51] LABS: % Iron Saturation 16.88 (12.00-45.00); ALT 75 U/L (8-44); AST 87 U/L (13-35); Albumin 4.2 g/dL (3.8-4.9); Albumin/Globulin Ratio 2.33 Ratio (1.60-3.17); Alkaline Phosphatase 105 U/L (41-126); BUN/Creat Ratio 17.85 Ratio (12.00-20.00); Blood Urea Nitrogen 23.2 mg/dL (9.0-27.0); Calcium 9.3 mg/dL (8.7-10.3); Carbon Dioxide 25.4 mmol/L (21.6-31.8); Chloride 106 mmol/L (96-109); Ferritin 63.5 ng/mL (10.0-291.0); Globulin 1.8 g/dL (1.6-3.3); Glucose 97 mg/dL (70-110); Iron 53 UG/DL (50-170); Phosphorus 3.3 mg/dL (2.4-5.1); Potassium 5.1 mmol/L (3.5-5.5); Sodium 140 mmol/L (135-145); Total Bilirubin 0.3 mg/dL (0.3-1.2); Total Iron Binding Capacity 314 UG/DL (228-460); Uric Acid 3.5 mg/dL (2.9-7.7)
[2024-03-24 16:08] LABS: Bacteria,Urine 2+ (None Seen)
[2024-03-24 19:02] LABS: Free Kappa Lt Chain Qnt, Serum 1.99 mg/dL (0.33-1.94); Free Lambda Lt Chain Qnt, Seru 1.31 mg/dL (0.57-2.63)
[2024-03-24 22:48] LABS: Urine Creatinine 92.3 mg/dL (28.0-217.0)
== END | disposition home or self-care (01) ==
LOC: LABWHC1 08:56
PROVIDERS: ATTEND Internal Medicine
DX: E55.9 Vitamin D deficiency, unspecified (principal); N39.0 Urinary tract infection, site not specified; N25.81 Secondary hyperparathyroidism of renal origin; M10.9 Gout, unspecified; D63.1 Anemia in chronic kidney disease; N18.32 Chronic kidney disease, stage 3b; R80.9 Proteinuria, unspecified
CPT/HCPCS: 36415; 80053; 81001; 82043; 82306; 82570; 82728; 83540; 83550; 83735; 83883; 83970; 84100; 84166; 84550; 85027; 86334

== ENCOUNTER → 2024-05-01 | Outpatient (CLI) | payer MEDICARE, OTHER | END | disposition home or self-care (01) | LOC: LABPRL 11:15 | PROVIDERS: ATTEND Internal Medicine | DX: J44.9 Chronic obstructive pulmonary disease, unspecified | CPT/HCPCS: 80053; 82784; 83883; 84165; 85025; 86334 ==

== ENCOUNTER → 2024-05-23 | Outpatient (CLI) | payer MEDICARE, OTHER ==
--- NOTE | 2024-05-23 18:00 | US ---
EXAMINATION TYPE: US kidneys/renal and bladder DATE OF EXAM: 05/23/2024 COMPARISON: NONE CLINICAL INDICATION: Female, 63 years old with history of N18.32 CKD,3B; CKD EXAM MEASUREMENTS: Right Kidney: 8.0x4.3x5.8 cm Left Kidney: 6.8x3.9x5.1 cm Right Kidney: small size, minimal hydro, 4mm stone inf pole Left Kidney: small size. No hydronephrosis. Bladder: wnl Bilateral Jets seen: Yes IMPRESSION: 1. Small size of the kidneys suggesting chronic medical renal disease. 2. Mild right-sided pelvocaliectasis/hydronephrosis. 3. 4 mm nonobstructive stone at the right lower pole.
== END | disposition home or self-care (01) ==
LOC: RADUSWWP 09:39
PROVIDERS: ATTEND Internal Medicine
DX: N18.32 Chronic kidney disease, stage 3b (principal); N13.2 Hydronephrosis with renal and ureteral calculous obstruction
CPT/HCPCS: 76770

== ENCOUNTER → 2024-06-30 | Outpatient (CLI) | payer MEDICARE, OTHER ==
--- NOTE | 2024-06-30 14:26 | MM ---
Reason for Exam: Screening (asymptomatic). Last screening mammogram was performed 12 month(s) ago. Patient History: Menarche at age 13. First Full-Term at age 23. Hysterectomy at age 32. Postmenopausal. Maternal aunt had breast cancer. Risk Values: Beverly 5 year model risk: 1.5%. NCI Lifetime model risk: 7.0%. Prior Study Comparison: 07/03/2022 Bilateral Screening Mammogram, [facility]. 06/28/2023 Bilateral Diagnostic Mammogram, [facility]. Tissue Density: The breasts are heterogeneously dense, which may obscure small masses. Findings: Analyzed By CAD. There is no suspicious group of microcalcifications or new suspicious mass in either breast. Overall Assessment: Negative, BI-RAD 1 Management: Screening Mammogram of both breasts in 1 year. . Patient should continue monthly self-breast exams. A clinical breast exam by your physician is recommended on an annual basis. This exam should not preclude additional follow-up of suspicious palpable abnormalities. Note on Beverly scores and lifetime risk: 1. A Beverly score greater than 3% is considered moderate risk. If this is the case, consider specialist referral to assess eligibility for a risk reducing agent. 2. If overall lifetime risk for the development of breast cancer is 20% or higher, the patient may qualify for future screening with alternating mammogram and breast MRI. [facility], , 06/30/2024 2:23 PM. Electronically signed and approved by: Jalen Umanzor M.D. Radiologis
== END | disposition home or self-care (01) ==
LOC: RADMAMWWP 06:58
PROVIDERS: ATTEND Family Medicine
DX: Z12.31 Encounter for screening mammogram for malignant neoplasm of breast
CPT/HCPCS: 77063; 77067

== ENCOUNTER 2024-07-06 09:48 | Emergency (ER) | payer MEDICARE, OTHER ==
[2024-07-06 09:53] VITALS: TEMP 97.4
[2024-07-06] MEDS: HYDROmorphone 1 MG/ML 1 ML SYRINGE IVP STA (10:07)
[2024-07-06] MEDS: SODIUM CHLORIDE 0.9% 500 ML 500 ML IV STA (10:07)
[2024-07-06 10:24] LABS: Basophils # (A) 0.1 k/uL (0-0.2); Basophils % (A) 1 %; Eosinophils # (A) 0.1 k/uL (0-0.7); Eosinophils % (A) 2 %; HCT 45.7 % (34.0-46.0); Hypochromasia Moderate; Lymphocytes # (A) 1.9 k/uL (1.0-4.8); Lymphocytes % (A) 26 %; MCH 31.2 pg (25.0-35.0); MCHC 30.5 g/dL (31.0-37.0); MCV 102.1 fL (80.0-100.0); Macrocytosis Slight; Mean Platelet Volume 8.1; Monocytes # (A) 0.7 k/uL (0-1.0); Monocytes % (A) 9 %; Neutrophils # (A) 4.4 k/uL (1.3-7.7); Neutrophils % (A) 59 %; Platelet Count 195 k/uL (150-450); RBC 4.48 m/uL (3.80-5.40); RDW 14.2 % (11.5-15.5); WBC 7.4 k/uL (3.8-10.6)
--- NOTE | 2024-07-06 10:27 | ED ---
General Adult HPI - General Chief complaint: Chest Pain Stated complaint: Chest pain/SOB Time Seen by Provider: 07/06/24 09:54 Source: patient, RN notes reviewed, old records reviewed Mode of arrival: ambulatory Limitations: no limitations - History of Present Illness Initial comments: 63-year-old female presenting with squeezing chest pain, upper back pain, abdominal pain. Patient does have history of CAD status post stenting. She has history of fibromyalgia and takes [place] as well as oral morphine. No vomiting. Patient does report abdominal pain and constipation as well. She also has a history of diverticulitis. Symptoms have been progressive over the past several days. No fever. - Related Data Home Medications Medication Instructions Recorded Confirmed Aspirin EC [Ecotrin Low Dose] 81 mg PO DAILY 12/12/20 01/11/22 Atorvastatin [Lipitor] 40 mg PO HS 12/12/20 01/11/22 Cholecalciferol [Vitamin D3 (25 50 mcg PO DAILY 12/12/20 01/11/22 Mcg = 1000 Iu)] Fluticasone/Vilanterol [Breo 1 puff INHALATION RT-DAILY 12/12/20 01/11/22 Ellipta 100-25 Mcg Inhaler] Metoprolol Tartrate [Lopressor] 25 mg PO BID 12/12/20 01/11/22 Teriflunomide [Aubagio] 14 mg PO DAILY 12/12/20 01/11/22 Clopidogrel [Plavix] 75 mg PO DAILY 03/22/21 01/11/22 methocarbamoL [Robaxin] 500 mg PO TID 03/22/21 01/11/22 Cyanocobalamin (Vitamin B-12) 5,000 mcg PO DAILY 08/25/21 01/11/22 [Vitamin B12] Gabapentin [Neurontin] 400 mg PO TID 08/25/21 01/11/[address] [place]-3 Fatty Acids/Fish Oil [Fish 1 cap PO DAILY 08/25/21 01/11/22 Oil 1,000 mg Softgel] Lidocaine 5% Oint [Xylocaine 5% 1 applic TOPICAL DAILY PRN 10/19/21 01/11/22 Oint] Magnesium Oxide [Mag-Ox] 400 mg PO DAILY 10/19/21 01/11/22 Ascorbic Acid [Vitamin C] 500 mg PO DAILY 01/11/22 01/11/22 Cyclobenzaprine [Flexeril] 5 mg PO BID PRN 01/11/22 01/11/22 DULoxetine HCL [Cymbalta] 30 mg PO BID 01/11/22 01/11/22 Folic Acid 0.4 mg PO DAILY 01/11/22 01/11/22 Multivitamins, Thera [Multivitamin 1 tab PO DAILY 01/11/22 01/11/22 (formulary)] Vitamin E 400 unit PO DAILY 01/11/22 01/11/22 calcitrioL 0.25 mcg PO SA 01/11/22 01/11/22 tiZANidine [Zanaflex] 4 mg PO TID PRN 01/11/22 01/11/22 Previous Rx's Medication Instructions Recorded QUEtiapine [SEROquel] 50 mg PO HS #30 tab 12/16/20 Allergies Allergy/AdvReac Type Severity Reaction Status Date / Time No Known Allergies Allergy Verified 03/23/22 11:44 Review of Systems ROS Statement: Those systems with pertinent positive or pertinent negative responses have been documented in the HPI. ROS Other: All systems not noted in ROS Statement are negative. Past Medical History Past Medical History: COPD, Fibromyalgia, Myocardial Infarction (HI), Musculoskeletal Disorder Additional Past Medical History / Comment(s): Drop foot, Multiple sclerosis, Hx of falls, Hx of UTI, Depression and anxiety, HLD, HI with stent Apr 2019, COPD, anemia, GERD, Fibromyalgia, neuropathy History of Any Multi-Drug Resistant Organisms: ESBL Date of last positivie culture/infection: 12/05/21 ESBL-E.coli MDRO Source:: Urine Past Surgical History: Heart Catheterization With Stent Additional Past Surgical History / Comment(s): cardiac cath, Hx of back fusion t hat failed and required multiple surgeries Past Anesthesia/Blood Transfusion Reactions: No Reported Reaction Past Psychological History: No Psychological Hx Reported Smoking Status: Current every day smoker Past Alcohol Use History: None Reported Past Drug Use History: None Reported - Past Family History Mother Family Medical History: No Reported History Father Family Medical History: Cancer Additional Family Medical History / Comment(s): . General Exam Limitations: no limitations General appearance: alert, in no apparent distress Head exam: Present: atraumatic, normocephalic Eye exam: Present: normal appearance, PERRL ENT exam: Present: normal exam Neck exam: Present: normal inspection. Absent: tenderness, meningismus Cardiovascular Exam: Present: regular rate, normal rhythm GI/Abdominal exam: Present: soft, distended, tenderness Extremities exam: Present: normal inspection, normal capillary refill. Absent: pedal edema, calf tenderness Neurological exam: Present: alert, oriented X3, CN II-XII intact. 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 sent in by a medical professional or institution (, PA, STABLE CLEANER, urgent care, hospital, or custodial...) When possible be specific @ -No Did you speak to anyone other than the patient for history (EMS, parent, family, police, friend...)? What history was obtained from this source @ -No Did you review nursing and triage notes (agree or disagree)? Why? @ -I reviewed and agree with nursing and triage notes Were old charts reviewed (outside hosp., previous admission, EMS record, old EKG, old radiological studies, urgent care reports/EKG's, custodial records)? Report findings @ -No old charts were reviewed Differential Chest Pain: Stable Angina, Unstable Angina, STEMI, NSTEMI Aortic Dissection, Pneumothorax, Musculoskeletal, Esophageal Spasm GERD, Cholecystitis, Pancreatitis, Zoster, this is not meant to be an all-inclusive list. EKG interpreted by me (3pts min.). @Sinus rhythm rate of 65, MA interval 136, QRS duration 84, QTc [address] segment elevation. X-rays interpreted by me (1pt min.). @ -None done CT interpreted by me (1pt min.). @CT angiography of the chest abdomen pelvis showing no aortic dissection or acute aortic pathology. Constipation noted without other acute findings U/S interpreted by me (1pt. min.). @ -None done What testing was considered but not performed or refused? (CT, X-rays, U/S, pat bs)? Why? @ -None What meds were considered but not given or refused? Why? @ -None Did you discuss the management of the patient with other professionals (professionals i.e. , PA, STABLE CLEANER, lab, RT, psych nurse, adoption social worker, environmental sampler, teacher, forestry technical officer, case coordinator)? Give summary @ -No Was smoking cessation discussed for >3mins.? @ -No Was critical care preformed (if so, how long)? @ -No Were there social determinants of health that impacted care today? How? (Homelessness, low income, unemployed, alcoholism, drug addiction, transportation, low edu. Level, literacy, decrease access to med. care, group home, rehab)? @ -No Was there de-escalation of care discussed even if they declined (Discuss DNR or withdrawal of care, Hospice)? DNR status @ -No What co-morbidities impacted this encounter? (DM, HTN, Smoking, COPD, CAD, Cancer, CVA, ARF, Chemo, Hep., AIDS, mental health diagnosis, sleep apnea, morbid obesity)? @ -None Was patient admitted / discharged? Hospital course, mention meds given and route, prescriptions, significant lab abnormalities, going to OR and other pertinent info. @63-year-old female presenting with chest pain, abdominal pain, back pain. EKG sinus rhythm without definitive signs of ischemia, no ST segment elevation. I did obtain laboratory testing including CBC, CMP, urinalysis, troponin and CT imaging of the chest abdomen pelvis. CT imaging shows constipation with no other acute findings. She has normal CBC, chronic stable transaminitis. Initial troponin is negative. Given the patient's risk factors I did obtain a second troponin on this patient at 3 hours which was again negative. I do believe that her pain is more related to fibromyalgia and chronic pain issues rather than acute coronary event or acute intra-abdominal pathology. Undiagnosed new problem with uncertain prognosis? @ -No Drug Therapy requiring intensive monitoring for toxicity (Heparin, Nitro, Insulin, Cardizem)? @ -No Were any procedures done? @ -No Diagnosis/symptom? @Acute on chronic pain Acute, or Chronic, or Acute on Chronic? @ -Acute on chronic Uncomplicated (without systemic symptoms) or Complicated (systemic symptoms)? @ -Default Side effects of treatment? @ -No Exacerbation, Progression, or Severe Exacerbation? @ -No Poses a threat to life or bodily function? How? (Chest pain, [place], HI, pneumonia, PE, COPD, DKA, ARF, appy, cholecystitis, CVA, Diverticulitis, Homicidal, Suicidal, threat to staff... and all critical care pts) @ -[Low risk - Lab Data Result diagrams: 07/06/24 10:04 07/06/24 10:04 Lab Results 07/06/24 07/06/24 07/06/24 Range/Units 10:04 10:04 10:04 WBC 7.4 (3.8-10.6) k/uL RBC 4.48 (3.80-5.40) m/uL Hgb 14.0 (11.4-16.0) gm/dL Hct 45.7 (34.0-46.0) % MCV 102.1 H (80.0-100.0) fL MCH 31.2 (25.0-35.0) pg MCHC 30.5 L (31.0-37.0) g/dL RDW 14.2 (11.5-15.5) % Plt Count 195 (150-450) k/uL MPV 8.1 Neutrophils % 59 % Lymphocytes % 26 % Monocytes % 9 % Eosinophils % 2 % Basophils % 1 % Neutrophils # 4.4 (1.3-7.7) k/uL Lymphocytes # 1.9 (1.0-4.8) k/uL Monocytes # 0.7 (0-1.0) k/uL Eosinophils # 0.1 (0-0.7) k/uL Basophils # 0.1 (0-0.2) k/uL Hypochromasia Moderate Macrocytosis Slight PT 9.9 L (10.0-12.5) sec INR 0.9 (<1.2) APTT 24.5 (22.0-30.0) sec Sodium 140 (137-145) mmol/L Potassium 4.4 (3.5-5.1) mmol/L Chloride 108 H (98-107) mmol/L Carbon Dioxide 28 (22-30) mmol/L Anion Gap 4 mmol/L BUN 26 H (7-17) mg/dL Creatinine 1.05 H (0.52-1.04) mg/dL Est GFR (CKD-EPI)AfAm 66 (>60 ml/min/1.73 sqM) Est GFR (CKD-EPI)NonAf 57 (>60 ml/min/1.73 sqM) Glucose 109 H (74-99) mg/dL Calcium 9.7 (8.4-10.2) mg/dL Magnesium 2.1 (1.6-2.3) mg/dL Total Bilirubin 0.7 (0.2-1.3) mg/dL AST 75 H (14-36) U/L ALT 75 H (4-34) U/L Alkaline Phosphatase 134 H (38-126) U/L Troponin I (0.000-0.034) ng/mL Total Protein 6.9 (6.3-8.2) g/dL Albumin 4.2 (3.5-5.0) g/dL Amylase 88 (30-110) U/L Lipase 140 (23-300) U/L Urine Color Urine Appearance (Clear) Urine pH (5.0-8.0) Ur Specific [place] (1.001-1.035) Urine Protein (Negative) Urine Glucose (UA) (Negative) Urine Ketones (Negative) Urine Blood (Negative) Urine Nitrite (Negative) Urine Bilirubin (Negative) Urine Urobilinogen (<2.0) mg/dL Ur Leukocyte Esterase (Negative) Urine RBC (0-5) /hpf Urine WBC (0-5) /hpf Ur Squamous Epith Cells (0-4) /hpf Urine Bacteria (None) /hpf Urine Mucus (None) /hpf 07/06/24 07/06/24 07/06/24 Range/Units 10:04 10:09 13:02 WBC (3.8-10.6) k/uL RBC (3.80-5.40) m/uL Hgb (11.4-16.0) gm/dL Hct (34.0-46.0) % MCV (80.0-100.0) fL MCH (25.0-35.0) pg MCHC (31.0-37.0) g/dL RDW (11.5-15.5) % Plt Count (150-450) k/uL MPV Neutrophils % % Lymphocytes % % Monocytes % % Eosinophils % % Basophils % % Neutrophils # (1.3-7.7) k/uL Lymphocytes # (1.0-4.8) k/uL Monocytes # (0-1.0) k/uL Eosinophils # (0-0.7) k/uL Basophils # (0-0.2) k/uL Hypochromasia Macrocytosis PT (10.0-12.5) sec INR (<1.2) APTT (22.0-30.0) sec Sodium (137-145) mmol/L Potassium (3.5-5.1) mmol/L Chloride (98-107) mmol/L Carbon Dioxide (22-30) mmol/L Anion Gap mmol/L BUN (7-17) mg/dL Creatinine (0.52-1.04) mg/dL Est GFR (CKD-EPI)AfAm (>60 ml/min/1.73 sqM) Est GFR (CKD-EPI)NonAf (>60 ml/min/1.73 sqM) Glucose (74-99) mg/dL Calcium (8.4-10.2) mg/dL Magnesium (1.6-2.3) mg/dL Total Bilirubin (0.2-1.3) mg/dL AST (14-36) U/L ALT (4-34) U/L Alkaline Phosphatase (38-126) U/L Troponin I <0.012 <0.012 (0.000-0.034) ng/mL Total Protein (6.3-8.2) g/dL Albumin (3.5-5.0) g/dL Amylase (30-110) U/L Lipase (23-300) U/L Urine Color Colorless Urine Appearance Cloudy H (Clear) Urine pH 7.0 (5.0-8.0) Ur Specific [place] 1.005 (1.001-1.035) Urine Protein Negative (Negative) Urine Glucose (UA) Negative (Negative) Urine Ketones Negative (Negative) Urine Blood Negative (Negative) Urine Nitrite Negative (Negative) Urine Bilirubin Negative (Negative) Urine Urobilinogen <2.0 (<2.0) mg/dL Ur Leukocyte Esterase Large H (Negative) Urine RBC 7 H (0-5) /hpf Urine WBC 3 (0-5) /hpf Ur Squamous Epith Cells 12 H (0-4) /hpf Urine Bacteria Occasional H (None) /hpf Urine Mucus Rare H (None) /hpf Disposition Clinical Impression: Atypical chest pain, Abdominal pain Disposition: HOME SELF-CARE Condition: Fair Instructions (If sedation given, give patient instructions): Chest Pain (ED), Abdominal Pain (ED) Is patient prescribed a controlled substance at d/c from ED?: No Referrals: Agnes Jones MD [Primary Care Provider] - 1-2 days Time of Disposition: 13:41
[2024-07-06 10:32] LABS: INR 0.9 (<1.2); Partial Thromboplastin Time 24.5 sec (22.0-30.0); Prothrombin Time 9.9 sec (10.0-12.5)
[2024-07-06 10:36] LABS: ALT 75 U/L (4-34); AST 75 U/L (14-36); African American GFR (CKD) 66 (>60 ml/min/1.73 sqM); Albumin 4.2 g/dL (3.5-5.0); Alkaline Phosphatase 134 U/L (38-126); Amylase 88 U/L (30-110); Anion Gap 4 mmol/L; Blood Urea Nitrogen 26 mg/dL (7-17); Calcium 9.7 mg/dL (8.4-10.2); Carbon Dioxide 28 mmol/L (22-30); Chloride 108 mmol/L (98-107); Glucose 109 mg/dL (74-99); Lipase 140 U/L (23-300); Magnesium 2.1 mg/dL (1.6-2.3); Non-African American GFR(CKD) 57 (>60 ml/min/1.73 sqM); Potassium 4.4 mmol/L (3.5-5.1); Sodium 140 mmol/L (137-145); Total Bilirubin 0.7 mg/dL (0.2-1.3); Total Protein 6.9 g/dL (6.3-8.2)
--- NOTE | 2024-07-06 10:38 | CT ---
CTA chest, abdomen and pelvis. HISTORY: Back pain and abdominal pain. COMPARISON: CT abdomen and pelvis dated 12/05/2021. TECHNIQUE: Multiple axial images are obtained through the chest, abdomen and pelvis on the uneventful administration of nonionic IV contrast. CTA was performed according to the department protocol. FINDINGS: CTA CHEST: The thoracic aorta is normal without dilatation or dissection. There is no pulmonary embolus. There is no mediastinal, hilar or axillary adenopathy. There are 2 5 mm right lower lobe pulmonary nodules. This is a high-risk patient and routine screenin g at yearly intervals is recommended. There is no lung consolidation or abnormal interstitial density. There is no pleural effusion or pneu mothorax. There are no focal osseous lesions. CTA abdomen and pelvis: Caliber of the abdominal aorta is normal and there is no aneurysm or dissection. The mesenteric origi ns are widely patent. There is mild atherosclerotic calcification in the infrarenal abdominal aorta. There is no retroperit oneill hemorrhage or adenopathy.. The gallbladder is normal. There is no focal mass or organomegaly involving the liver, pancreas, sple en or adrenal glands. There is no solid renal mass or hydronephrosis. There is a nonobstructing 2 to 3 mm calcification in the lower pole the right kidney. The bowel loops are normal in caliber and there is no dilatation or obstruction. There is diverticulo sis without CT evidence of diverticulitis. There is no free intraperitoneal air or fluid. No inflammatory changes are identified in the mesenter y. There is no pelvic mass or adenopathy. There is mild prostatic hypertrophy. There is a moderate to large amount of stool within the colon and rectum. There are postsurgical changes of laminectomy and fusion in the lower lumbar spine. IMPRESSION: 1. No aneurysm or dissection of the thoracic or abdominal aorta. 2. No acute cardiopulmonary disease. 3. No pulmonary embolism. 4. 2-3mm nonobstructing right lower pole renal calculus. 5. Moderate to large amount of stool within the colon and rectum. No bowel obstruction. 6. No acute inflammation within the abdomen or pelvis. [facility], , 07/06/2024 10:36 AM
[2024-07-06 10:40] LABS: Appearance,Urine Cloudy (Clear); Bacteria,Urine Occasional /hpf; Bilirubin,Urine Negative (Negative); Blood,Urine Negative (Negative); Color,Urine Colorless; Glucose,Urine (UA) Negative (Negative); Ketones,Urine Negative (Negative); Leukocyte Esterase,Urine Large (Negative); Mucus,Urine Rare /hpf; Nitrite,Urine Negative (Negative); Protein,Urine Negative (Negative); RBC,Urine 7 /hpf (0-5); Specific Gravity,Urine 1.005 (1.001-1.035); Squamous Epithelial Cell,Urine 12 /hpf (0-4); Urobilinogen,Urine <2.0 mg/dL (<2.0); WBC,Urine 3 /hpf (0-5)
[2024-07-06] MEDS: HYDROmorphone 0.5 MG/0.5 ML SYRINGE IVP STA (13:06)
[2024-07-06] MEDS: methylPREDNISolone SOD SUCCI 125 MG/2 ML VIAL IV STA (14:01)
[2024-07-06 14:07] VITALS: BP 128/72; PULSE 68; RESP 18
== END 2024-07-06 14:11 | disposition home or self-care (01) ==
LOC: EC 09:48
CPT/HCPCS: 36415; 71275; 74174; 80053; 81001; 82150; 83690; 83735; 84484; 85025; 85610; 85730; 93005; 96374; 96375; 96376; 99284

== ENCOUNTER → 2024-08-25 | Outpatient (CLI) | payer MEDICARE, OTHER ==
[2024-08-25 15:49] LABS: Basophils # (A) 0.11 X 10*3/uL (0.00-0.10); Basophils % (A) 1.9 %; Eosinophils # (A) 0.13 X 10*3/uL (0.04-0.35); Eosinophils % (A) 2.3 %; HCT 40.7 % (37.2-46.3); HGB 12.8 g/dL (12.0-15.0); Lymphocytes # (A) 1.49 X 10*3/uL (0.90-5.00); Lymphocytes % (A) 26.3 %; MCH 31.1 pg (27.0-32.0); MCHC 31.4 g/dL (32.0-37.0); MCV 98.8 FL (80.0-97.0); Mean Platelet Volume 9.7 FL (9.5-12.2); Monocytes # (A) 0.68 X 10*3/uL (0.20-1.00); NRBC Per 100 WBC 0 X 10*3/uL (0.00-0.01); Neutrophils # (A) 3.25 X 10*3/uL (1.80-7.70); Neutrophils % (A) 57.3 %; Platelet Count 237 X 10*3/uL (140-440); RBC 4.12 X 10*6/uL (4.10-5.20); RDW 14.6 % (11.5-14.5); WBC 5.67 X 10*3/uL (4.50-10.00)
[2024-08-25 16:31] LABS: % Iron Saturation 33.02 (12.00-45.00); Iron 105 UG/DL (50-170); Phosphorus 3.3 mg/dL (2.4-5.1); Total Iron Binding Capacity 318 UG/DL (228-460); Uric Acid 3.5 mg/dL (2.9-7.7)
[2024-08-25 16:32] LABS: ALT 41 U/L (8-44); AST 52 U/L (13-35); Alkaline Phosphatase 97 U/L (41-126); BUN/Creat Ratio 20.08 Ratio (12.00-20.00); Blood Urea Nitrogen 24.1 mg/dL (9.0-27.0); Calcium 9.3 mg/dL (8.7-10.3); Carbon Dioxide 22.6 mmol/L (21.6-31.8); Chloride 105 mmol/L (96-109); Globulin 2.1 g/dL (1.6-3.3); Glucose 91 mg/dL (70-110); Potassium 4.8 mmol/L (3.5-5.5); Sodium 138 mmol/L (135-145); Total Bilirubin 0.3 mg/dL (0.3-1.2); Total Protein 6.1 g/dL (6.2-8.2)
== END | disposition home or self-care (01) ==
LOC: LABWHC1 09:23
PROVIDERS: ATTEND Nurse Practitioner Family
DX: E55.9 Vitamin D deficiency, unspecified (principal); N18.32 Chronic kidney disease, stage 3b; D64.9 Anemia, unspecified; N39.0 Urinary tract infection, site not specified; R80.9 Proteinuria, unspecified; M10.9 Gout, unspecified; N25.81 Secondary hyperparathyroidism of renal origin
CPT/HCPCS: 36415; 80053; 82306; 82728; 83540; 83550; 83735; 83883; 83970; 84100; 84550; 85025; 86334

== ENCOUNTER → 2024-09-15 | Outpatient (CLI) | payer MEDICARE, OTHER ==
--- NOTE | 2024-09-15 14:24 | CT ---
EXAMINATION TYPE: CT hand LT wo con, CT wrist LT wo con CT DLP: 176.70 mGycm, Automated exposure control for dose reduction was used. DATE OF EXAM: 09/15/2024 11:47 AM COMPARISON: None CLINICAL INDICATION:Female, 63 years old with history of M25.532 PAIN IN L WRIST S63.642A SPRAIN OF M ETACAR; PHH, left wrist/ hand pain. Pain runs along side of the thumb thru wrist. No known injury. TECHNIQUE: Axial images were obtained of the left hand and wrist without the use of IV contrast. Add itional coronal and sagittal reformatted images and soft tissue and bone window were obtained for rev iew. 3-D reconstruction was created on a separate workstation. FINDINGS: Motion degraded examination. There is no evidence of fracture, subluxation, or dislocation. No significant soft tissue swelling or joint effusion is identified. No focal muscular atrophy or edema is identified. No radiopaque fore ign body identified. IMPRESSION: No acute fracture or dislocation. [facility], , 09/15/2024 2:21 PM
== END | disposition home or self-care (01) ==
LOC: RADCTMAIN 11:06
PROVIDERS: ATTEND Family Medicine
DX: S63.642A Sprain of metacarpophalangeal joint of left thumb, initial encounter (principal); M25.532 Pain in left wrist

== ENCOUNTER → 2024-09-23 | Outpatient (CLI) | payer MEDICARE, OTHER ==
--- NOTE | 2024-09-23 10:37 | US ---
EXAMINATION TYPE: US kidneys/renal and bladder DATE OF EXAM: 09/23/2024 COMPARISON: 05/23/2024 CLINICAL INDICATION: Female, 63 years old with history of N18.32 CHRONIC KIDNEY DISEASE, STAGE 3B; Magdiel cisneros denies any signs, symptoms, or relevant history TECHNIQUE: Grayscale imaging of the bilateral kidneys and urinary bladder: FINDINGS: EXAM MEASUREMENTS: Right Kidney: 8.8 x 4.7 x 4.8 cm Left Kidney: 8.1 x 4.4 x 4.5 cm Post Void Residual Volume: NA mL Right Kidney: Echogenic foci with posterior shadowing Left Kidney: WNL Bladder: WNL Bilateral Jets seen: Yes Normal Post Void Residual: NA There is no evidence for hydronephrosis at this point in time. No significant cortical thinning. Bk ical medullary differentiation is maintained bilaterally. Nonobstructive right renal shadowing 7 mm c alculus. No left nephrolithiasis is seen. No masses are identified. The urinary bladder is anechoic . IMPRESSION: 1. No hydronephrosis. 2. Nonobstructive right renal calculus. [facility], , 09/23/2024 10:35 AM
== END | disposition home or self-care (01) ==
LOC: RADUSWWP 10:02
PROVIDERS: ATTEND Internal Medicine
DX: N18.32 Chronic kidney disease, stage 3b (principal); N20.0 Calculus of kidney
CPT/HCPCS: 76770

== ENCOUNTER → 2024-10-15 | Outpatient (CLI) | payer MEDICARE, OTHER ==
--- NOTE | 2024-10-15 10:29 | XR ---
EXAMINATION TYPE: XR finger RT DATE OF EXAM: 10/15/2024 COMPARISON: NONE CLINICAL INDICATION: Female, 63 years old with history of M79.644 PAIN IN RIGHT FINGER(S) S69.91XA UN SP INJURY; TECHNIQUE: 3 views third finger of the right hand FINDINGS: No acute displaced fracture in the third finger of the right hand. Joint spaces are preserv ed. Overlying soft tissues are unremarkable. IMPRESSION: As above [facility], Workstation: [employer], 10/15/2024 10:27 AM
== END | disposition home or self-care (01) ==
LOC: RADXRMAIN 10:15
PROVIDERS: ATTEND Family Medicine
DX: S69.91XA Unspecified injury of right wrist, hand and finger(s), initial encounter (principal); X58.XXXA Exposure to other specified factors, initial encounter

== ENCOUNTER → 2024-11-24 | Outpatient (CLI) | payer MEDICARE, OTHER ==
[2024-11-24 16:07] LABS: Appearance,Urine Clear (Clear); Bilirubin,Urine Negative (Negative); Blood,Urine Negative (Negative); Color,Urine Yellow (Yellow); Ketones,Urine Negative (Negative); Nitrite,Urine Negative (Negative); PH, Urine 5.5; Specific Gravity,Urine 1.017 (1.001-1.030); Urobilinogen,Urine 0.2 E.U./DL
[2024-11-24 16:14] LABS: Bacteria,Urine None Seen (None Seen)
[2024-11-24 16:36] LABS: % Iron Saturation 22.22 (12.00-45.00); ALT 36 U/L (8-44); AST 42 U/L (13-35); Alkaline Phosphatase 76 U/L (41-126); Blood Urea Nitrogen 35.1 mg/dL (9.0-27.0); Calcium 9.8 mg/dL (8.7-10.3); Chloride 104 mmol/L (96-109); Ferritin 52.9 ng/mL (10.0-291.0); Glucose 99 mg/dL (70-110); Iron 76 UG/DL (50-170); Magnesium 1.8 mg/dL (1.5-2.4); Phosphorus 4.4 mg/dL (2.4-5.1); Potassium 5.4 mmol/L (3.5-5.5); Sodium 137 mmol/L (135-145); Total Bilirubin <0.2 mg/dL (0.3-1.2); Total Iron Binding Capacity 342 UG/DL (228-460); Uric Acid 4.3 mg/dL (2.9-7.7)
[2024-11-24 17:04] LABS: HCT 40.5 % (37.2-46.3); HGB 12.9 g/dL (12.0-15.0); Hepatitis A Antibody IgM Nonreactive (Nonreactive); Hepatitis B Core IgM Nonreactive (Nonreactive); Hepatitis B Surface Antigen Nonreactive (Nonreactive); Hepatitis C IgG Antibody Nonreactive (Nonreactive); MCHC 31.9 g/dL (32.0-37.0); MCV 100.5 FL (80.0-97.0); Mean Platelet Volume 10.3 FL (9.5-12.2); NRBC Per 100 WBC 0 X 10*3/uL (0.00-0.01); Platelet Count 220 X 10*3/uL (140-440); RBC 4.03 X 10*6/uL (4.10-5.20); WBC 8.65 X 10*3/uL (4.50-10.00)
[2024-11-24 18:27] LABS: Anti-DNA, DS unit <1.0 IU/mL; DNA Double-Stranded Negative (Negative)
[2024-11-24 19:34] LABS: Urine Creatinine 60.2 mg/dL (28.0-217.0)
[2024-11-25 14:30] LABS: C-ANCA <1:20 Titer (<1:20)
== END | disposition home or self-care (01) ==
LOC: LABWHC1 09:04
PROVIDERS: ATTEND Internal Medicine
DX: E55.9 Vitamin D deficiency, unspecified (principal); N18.32 Chronic kidney disease, stage 3b; D63.1 Anemia in chronic kidney disease; N39.0 Urinary tract infection, site not specified; N25.81 Secondary hyperparathyroidism of renal origin; M10.9 Gout, unspecified; R80.9 Proteinuria, unspecified
CPT/HCPCS: 36415; 80053; 80074; 81001; 82043; 82306; 82570; 82728; 83516; 83540; 83550; 83735; 83970; 84100; 84550; 85027; 86038; 86160; 86162; 86225; 86255

== ENCOUNTER → 2024-12-03 | Outpatient (CLI) | payer MEDICARE, OTHER ==
--- NOTE | 2024-12-03 18:45 | XR ---
EXAMINATION TYPE: XR wrist limited LT, XR hand complete LT DATE OF EXAM: 12/03/2024 5:15 PM COMPARISON: None CLINICAL INDICATION: Female, 64 years old with history of S60.222A, Z87.898;, pain TECHNIQUE: XR wrist limited LT, XR hand complete LT; frontal and lateral views of the wrist. Frontal , lateral and oblique views of the hand. FINDINGS: No acute osseous pathology, joint dislocation, or joint effusion. No evidence of any soft tissue swelling is seen. Mild multifocal degeneration changes of the wrist joint space narrowing oste ophyte formation. IMPRESSION: 1. No acute osseous pathology. 2. Mild multifocal osteoarthrosis. [facility], , 12/03/2024 6:43 PM
== END | disposition home or self-care (01) ==
LOC: RADXRMAIN 16:53
PROVIDERS: ATTEND Registered Nurse
DX: S60.222A Contusion of left hand, initial encounter (principal); M19.042 Primary osteoarthritis, left hand; Z87.898 Personal history of other specified conditions; X58.XXXA Exposure to other specified factors, initial encounter